=== PATIENT | male | born 1940 | race Caucasian/White ===

== ENCOUNTER → 2023-08-15 08:56 | Outpatient (REF) | payer MEDICARE, SELFPAY ==
[2023-08-15 11:15] LABS: C-Reactive Protein < 5.00 mg/L (0.0-10.00)
[2023-08-15 11:26] LABS: ALT (SGPT) 13 U/L (0-50); AST (SGOT) 21 U/L (17-59); Alkaline Phosphatase 103 U/L (38-126); Blood Urea Nitrogen 11 mg/dl (9-20); Calcium 9.4 mg/dl (8.4-10.2); Carbon Dioxide 25 mmol/L (22-30); Chloride 109 mmol/L (98-107); Glucose 85 mg/dl (70-99); Iron 118 ug/dl (49-181); Potassium 4.5 mmol/L (3.5-5.1); Sodium 138 mmol/L (135-145); Total Bilirubin 0.6 mg/dl (0.2-1.3); Total Protein 6.5 g/dl (6.3-8.2); eGFR > 60.00
[2023-08-15 11:32] LABS: % Basophils 0.5 % (0-2); % Eosinophils 1.6 % (0-6); % Immature Granulocytes 0.9 % (0-0.5); % Lymphocytes 30.8 % (20.5-51.1); % Monocytes 12.3 % (1.7-9.3); % Neutrophils 53.9 % (42.2-75.2); Absolute Eosinophils 0.1 10^3/uL (0-0.7); Absolute Immature Granulocytes 0.1 10^3/uL (0-0.05); Absolute Monocytes 0.8 10^3/uL (0.1-0.6); Absolute Neutrophils 3.4 10^3/uL (1.4-6.5); Hematocrit 37.7 % (39.0-52.0); Mean Corp Hgb Conc. 34.5 g/dL (33.0-37.0); Mean Corpuscular Volume 92.9 fL (80.0-94.0); Mean Platelet Volume 10.6 fL (7.4-10.4); Nucleated Red Blood Cells % 0 % (-); Platelet Count 336 10^3/uL (130-400); Red Blood Cell Count 4.06 10^6/uL (4.70-6.10); Red Cell Dist. Width 13.8 % (11.5-14.5); White Blood Cell Count 6.3 10^3/uL (4.8-10.8)
[2023-08-15 11:36] LABS: Percent Saturation 27 % (20-50); Total Iron Binding Capacity 422 ug/dl (261-462)
[2023-08-15 11:50] LABS: Ferritin 48.1 ng/ml (17.9-464.0)
== END ==
LOC: RAD 08:56
PROVIDERS: ATTENDING PHYSICIAN Internal Medicine Rheumatology; FAMILY PHYSICIAN Internal Medicine; REFERRING PHYSICIAN Nurse Practitioner
DX: U07.1 COVID-19 (principal); M17.11 Unilateral primary osteoarthritis, right knee; M81.0 Age-related osteoporosis without current pathological fracture; Z51.81 Encounter for therapeutic drug level monitoring; E87.1 Hypo-osmolality and hyponatremia; D64.9 Anemia, unspecified
CPT/HCPCS: 36415; 71046; 80053; 82728; 83540; 83550; 85025; 86140

== ENCOUNTER → 2023-10-15 12:50 | Outpatient (REF) | payer MEDICARE, SELFPAY | LOC: RAD 12:50 | PROVIDERS: ATTENDING PHYSICIAN Internal Medicine Critical Care Medicine; FAMILY PHYSICIAN Internal Medicine | DX: R91.1 Solitary pulmonary nodule (principal); R91.8 Other nonspecific abnormal finding of lung field | CPT/HCPCS: 71250 ==

== ENCOUNTER 2023-11-13 14:45 | Inpatient (IN) | payer MEDICARE, SELFPAY ==
[2023-11-13] VITALS (10 sets, daily range): BP systolic 91–147; BP diastolic 63–93; BMI 21.8
--- NOTE | 2023-11-13 12:01 | ED.GENMED ---
History of Present Illness
General
Chief Complaint: Chest Pain
Source: patient
Time Seen by Provider: 11/13/23 11:57
Travel History
Have you had any contact with someone who has COVID-19?: No
Do you have any symptoms of coronavirus? Fever > 100 degrees, chills, cough, shortness of breath, sore throat, loss of taste or smell, muscle aches, or headache?: No
History of Present Illness
History of Present Illness:
83-year-old male presents the emergency room via ambulance as a STEMI alert. Patient began having chest pain earlier this morning shortly before calling 911. He describes the pain as a severe sharp discomfort that he rates a 10 out of 10. It
radiates to both arms. Pain is associate with shortness of breath. Patient denies having any similar pain in the past. Paramedics gave patient 4 baby aspirin. Patient has a distant smoking history over 20 years ago.
Past History
Past History
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
dysphagia/Schatzki's ring) and Other (Diverticulitis, )
ED Past Surgical History: Appendectomy, Bowel resection ( Colon resection for diverticulitis with colostomy and then reversal), Orthopedic (Back surgery for spinal stenosis, Knee surgery right, Left hip pin and screws) and Tonsilectomy
Social History
Tobacco: Former smoker
Alcohol: Occasional
Drug: None
Personal:
Living: with family
Employment: Employed
Family History
Family History: Negative Early CAD
Phy Exam
Physical Exam
Physical Exam:
General: Awake, Alert, Oriented X3. Appears uncomfortable from chest pain
Vitals: unremarkable
Head: Atraumatic
Eyes: Pupils equal, EOMI
Throat: Airway intact, no exudates
Neck: Trachea midline
Lungs: Clear and equal b/l
Heart: Regular rate, no murmurs
Abd: Soft, Nontender, No pulsatile mass
Neuro: Nonfocal
Skin: Warm, dry, no rash
Extremities: pulses equal b/l, no edema
Scores
Heart Score for Chest Pain Patients
STEMI patient?: Yes
Course
Orders/Labs/Results
Orders:
Orders
11/13/23 11:47
Electrocardiogram (*1) Urgent
Reason for Study: Chest Pain
EKG- Treatment ONCE
11/13/23 11:49
Type+Screen Urgent
Complete Blood Count/With Diff Urgent
Comprehensive Metabolic Panel Urgent
PTT Urgent
Troponin I Urgent
11/13/23 11:58
Ticagrelor [Brilinta] 180 mg .ROUTE .STK-MED ONE
11/13/23 11:59
Heparin 5,000 units .ROUTE .STK-MED ONE
11/13/23 12:03
Heparin 1000 Units/500 ml [Heparin] 1,000 units in 500 ml .ROUTE .STK-MED
Heparin Sodium,Porcine/Ns/Pf [Heparin 2000 Units/1000 ml] 2,000 unit in 1,000 ml .ROUTE .STK-MED
Lidocaine HCl/Pf [Xylocaine-Mpf 1% Vial] 50 mg .ROUTE .STK-MED ONE
Verapamil Injectable [Isoptin/Verapamil Injection] 5 mg .ROUTE .STK-MED ONE
11/13/23 12:04
Nitroglycerin [Tridil] 1,500 mcg .ROUTE .STK-MED ONE
11/13/23 12:11
Fentanyl Citrate/Pf [Sublimaze] 100 mcg .ROUTE .STK-MED ONE
Heparin 10,000 units .ROUTE .STK-MED ONE
Midazolam HCl [Versed] 2 mg .ROUTE .STK-MED ONE
11/13/23 12:28
Lidocaine HCl/Pf [Xylocaine-Mpf 1% Vial] 100 mg .ROUTE .STK-MED ONE
11/13/23 12:51
Heparin 1000 Units/500 ml [Heparin] 1,000 units in 500 ml .ROUTE .STK-MED
11/13/23 13:42
Heparin 10,000 units .ROUTE .STK-MED ONE
Abnormal Lab Results
11/13/23 11/13/23 11/13/23
11:49 12:14 12:23
WBC 15.5 H 10^3/uL
(4.8-10.8)
RBC 4.17 L 10^6/uL
(4.70-6.10)
Hct 37.5 L %
(39.0-52.0)
MCH 31.4 H pg
(27.0-31.0)
Abs Immat Gran (auto) 0.1 H 10^3/uL
(0-0.05)
Absolute Neuts (auto) 10.6 H 10^3/uL
(1.4-6.5)
Absolute Monos (auto) 1.5 H 10^3/uL
(0.1-0.6)
Immature Gran % 0.6 H %
(0-0.5)
Monocytes % 9.6 H %
(1.7-9.3)
Carbon Dioxide 19 L mmol/L
(22-30)
Glucose 110 H mg/dl
(70-99)
Alkaline Phosphatase 129 H U/L
(38-126)
Troponin I 0.054 H* ng/ml
POC ACT Low Range 179 H Seconds 232 H Seconds
(116-155) (116-155)
11/13/23 11/13/23 11/13/23
12:48 13:08 13:33
WBC
RBC
Hct
MCH
Abs Immat Gran (auto)
Absolute Neuts (auto)
Absolute Monos (auto)
Immature Gran %
Monocytes %
Carbon Dioxide
Glucose
Alkaline Phosphatase
Troponin I
POC ACT Low Range 239 H Seconds 285 H Seconds 260 H Seconds
(116-155) (116-155) (116-155)
11/13/23 11:49
11/13/23 11:49
Vital Signs
Initial and Last Documented VS:
Initial Vital Signs
Pulse Resp BP Pulse Ox
77 26 147/93 99
11/13/23 12:00 11/13/23 12:00 11/13/23 12:00 11/13/23 12:00
Last Documented Vital Signs
Pulse Resp BP Pulse Ox
77 26 147/93 99
11/13/23 12:00 11/13/23 12:00 11/13/23 12:00 11/13/23 12:00
MDM/Problems Addressed
Differential Diagnosis Includes:
STEMI, NSTEMI, acute coronary syndrome, dissection
MDM/Problems Addressed:
Patient presents with acute chest pain. Prehospital EKG was reportedly suspicious for an inferior wall CO. Unfortunately the EKG cannot be transmitted. The alert was called before the patient arrived. EKG here does confirm the presence of an
inferior wall CO. Patient evaluated by Dr. Ayala prior to being rapidly taken to the Dairy Technologist. Patient received 5000 units of heparin and 180 of Brilinta as well.
*Pulse Oximetry
Patient hypoxic: no
*EKG
Interpreted by ED Provider?: Yes
Interpretation: abnormal
Heart Rate: 73
Rate: normal
Rhythm: sinus
Interval: first degree heart block
QRS Pattern: normal QRS
Ischemia: ST elevation (II, III, AvF with t wave inversion avl)
*Zipper Repairer Interpretation
Rate: normal
Interpretation: abnormal
Heart Rate: 73
Rhythm: sinus
*Critical Care Note
Total Time (30-74mins, 75-104mins- exclusive of procedures): 20 min
comment:
Critical care statement: A total of 20 minutes of critical care time was provided for this patient. This includes management of unstable vital signs, evaluation of the patient at bedside, reviewing the patient's pertinent medical records, discussion
with consultants, review of old EKGs and review of pertinent medical records. This time with separate from time utilized to perform the aforementioned documented procedures
ED Attending Note
-
Portions of this chart may have been created with voice recognition software.� Occasional wrong word or��sound alike� substitutions may have occurred due to the inherent limitations of voice recognition software.
Discharge Plan
Departure
Patient Disposition: Admit
Date of Disposition: 11/13/23
Time of Disposition: 12:05
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
Presentation/result/management discussed w/ accepting MD/DO: Dr. Ayala
Condition: Serious
Discharge Problem:
Acute CO, inferior wall
Prescriptions:
No Action
donepezil 10 MG tablet
10 mg PO HS
prednisone 1 MG tablet
3 mg PO DAILY
Patient Comments:
06/20/2023: On hold while pt is on taper dosing
gemfibrozil 600 MG tablet
600 mg PO DAILY
omeprazole 40 mg capsule,delayed release(/EC)
40 mg PO DAILY
ibuprofen 600 mg tablet
600 mg PO TID PRN (Reason: mild pain/fever)
escitalopram oxalate 20 mg tablet
20 mg PO DAILY
Afrin (oxymetazoline) 0.05 % Mist
1 spray INTRANASAL Q12H PRN (Reason: nasal congestion)
albuterol sulfate 90 mcg/actuation Hfa Aerosol Inhaler
2 puff INHALATION R Q4 PRN (Reason: sob/wheezing)
Referrals:
UNKNOWN,NO INTERVIEW [Family Provider] -
Interventions
Interventions:
ED- Cardiac Assessment Last Done: 11/13/23 12:09
Discharge Date and Time
Print Language: NEPALI
[2023-11-13 12:02] LABS: % Basophils 0.2 % (0-2); % Eosinophils 0.3 % (0-6); % Immature Granulocytes 0.6 % (0-0.5); % Monocytes 9.6 % (1.7-9.3); % Neutrophils 68.3 % (42.2-75.2); Absolute Eosinophils 0.1 10^3/uL (0-0.7); Absolute Immature Granulocytes 0.1 10^3/uL (0-0.05); Absolute Lymphocytes 3.3 10^3/uL (1.2-3.4); Absolute Monocytes 1.5 10^3/uL (0.1-0.6); Absolute Neutrophils 10.6 10^3/uL (1.4-6.5); Hematocrit 37.5 % (39.0-52.0); Hemoglobin 13.1 g/dL (13.0-18.0); Mean Corp Hgb Conc. 34.9 g/dL (33.0-37.0); Mean Corpuscular Hgb 31.4 pg (27.0-31.0); Mean Corpuscular Volume 89.9 fL (80.0-94.0); Mean Platelet Volume 10.2 fL (7.4-10.4); Nucleated Red Blood Cells % 0 % (-); Platelet Count 369 10^3/uL (130-400); Red Blood Cell Count 4.17 10^6/uL (4.70-6.10); Red Cell Dist. Width 12.5 % (11.5-14.5); White Blood Cell Count 15.5 10^3/uL (4.8-10.8)
[2023-11-13 12:16] LABS: APTT 30.4 Sec (23.4-35.0)
[2023-11-13 12:20] LABS: ACT-LR - POC 179 Seconds (116-155)
[2023-11-13 12:26] LABS: ALT (SGPT) 13 U/L (0-50); AST (SGOT) 22 U/L (17-59); Albumin 4.2 g/dl (3.5-5.0); Alkaline Phosphatase 129 U/L (38-126); Blood Urea Nitrogen 17 mg/dl (9-20); Calcium 9.7 mg/dl (8.4-10.2); Carbon Dioxide 19 mmol/L (22-30); Chloride 106 mmol/L (98-107); Estimated Creatinine Clearance 74 ml/min; Glucose 110 mg/dl (70-99); Potassium 4.1 mmol/L (3.5-5.1); Sodium 138 mmol/L (135-145); Total Bilirubin 0.6 mg/dl (0.2-1.3); Total Protein 6.8 g/dl (6.3-8.2); eGFR > 60.00
[2023-11-13 12:33] LABS: ACT-LR - POC 232 Seconds (116-155)
[2023-11-13 12:47] LABS: Troponin I 0.054 ng/ml
[2023-11-13 12:57] LABS: ACT-LR - POC 239 Seconds (116-155)
[2023-11-13 13:13] LABS: ACT-LR - POC 285 Seconds (116-155)
[2023-11-13 13:40] LABS: ACT-LR - POC 260 Seconds (116-155)
[2023-11-13 14:07] LABS: ACT-LR - POC 274 Seconds (116-155)
--- NOTE | 2023-11-13 14:20 | CON.CAR ---
Consultation
Consultation Request
Date/Time Consultation Requested: 11/13/23
Reason for Consultation: Inferior STEMI
Medical History
-
Chief Complaint: Chest pain
History of Present Illness:
83-year-old male h/o HLD, COVID PNA 06/2023, PMR, COPD, dementia, BPH, GERD with Schatzki ring and associated dysphasia, former smoker who developed 10/10 chest pain rad b/l arms with SOB and called 911. On arrival to ER EKG with inferior ST
elevations and a STEMI alert called. ASA, Heparin, Brilinta were given in ER and he was brought urgently to rn labor delivery.
Past Medical History
Past Medical History: Cancer (basal cell, squamous cell skin), COPD (COVID Pneumonia 06/2023), GERD (schatzki ring), Hypercholesterolemia, Psychiatric (Anxiety, depression, mild dementia) and Other (spinal stenosis, PMR, diverticulitis with
perforation, BPH, aspiration pneumonia 2018 requiring intubation, osteoporosis)
Past Surgical History: Appendectomy, Bowel Resection, Orthopedic (EMILIA 2021, lumbar decompression sx), Tonsilectomy and Other (MOHS)
Social History
Tobacco: Former Smoker (quit in 2003, 35 pyhx)
Alcohol: Occasional
Living: With Family
Family History
Family History: Cancer (mother CLL )
Allergies / Home Medications
Allergy/AdvReac Type Severity Reaction Status Date / Time
morphine Allergy Hives Verified 06/12/23 09:55
penicillin V [Penicillin V] Allergy Rash Verified 06/12/23 09:55
�Medication �Instructions �Recorded �Confirmed �Type
donepezil 10 mg tablet 10 mg PO HS Mental Health/Anxiety 06/15/19 06/20/23 History
gemfibrozil 600 mg tablet 600 mg PO DAILY High cholesterol 06/15/19 06/20/23 History
prednisone 1 mg tablet 3 mg PO DAILY Infection 06/15/19 06/20/23 History
albuterol sulfate 90 mcg/actuation 2 puff inhalation R Q4 PRN 06/20/23 06/20/23 History
aerosol inhaler sob/wheezing
escitalopram oxalate 20 mg tablet 20 mg PO DAILY 06/20/23 06/20/23 History
ibuprofen 600 mg tablet 600 mg PO TID PRN mild pain/fever 06/20/23 06/20/23 History
omeprazole 40 mg capsule,delayed 40 mg PO DAILY 06/20/23 06/20/23 History
release
oxymetazoline 0.05 % nasal mist 1 spray intranasal Q12H PRN nasal 06/20/23 06/20/23 History
(Afrin (oxymetazoline)) congestion
Review of Systems
-
Unable to obtain full review of systems at this time due to: Dementia
Cardiac: Chest Pain (02/18 on arrival to rn labor delivery)
Physical Exam
Vital Signs
Pulse Resp BP Pulse Ox
77 26 147/93 99
11/13/23 12:00 11/13/23 12:00 11/13/23 12:00 11/13/23 12:00
Lab Results
11/13/23 11:49
11/13/23 11:49
Troponin I 0.054 ng/ml H* 11/13/23 11:49
Physical Exam
General: Pain (deferred d/t being prepped and drapped on rn labor delivery table)
Impression / Plan
-
PCP: Nerissa Tse
CDY: None, new to Dr. Ayala
83-year-old male h/o HLD, COVID PNA 06/2023, PMR, COPD, dementia, BPH, GERD with Schatzki ring and associated dysphasia, former smoker who developed 10/10 chest pain rad b/l arms with SOB and called 911. On arrival to ER EKG with inferior ST
elevations and a STEMI alert called. ASA, Heparin, Brilinta were given in ER and he was brought urgently to rn labor delivery.
Impression:
Inferior STEMI
post PCI RCA x 2 HARLEY
Hyperlipidemia
PMR
COPD
COVID Pneumonia 06/2023
BPH
mild Dementia
spinal stenosis
Anxiety/Depression
GERD
Schatzki's ring h/o aspiration requiring intubation 2018
former smoker
Osteoporosis
Plan:
Admit IVU on hospitalist service, continue post MA care
Rad/Fem sites per protocol
serial troponin to peak
Check Echo in am
DAPT ASA/Brilinta (CM to eval cost)
Check lipid profile, stop gemfibrozil new start to atorvastatin 40mg
Will add low dose BB monitor for any side effects with COPD
continue prednisone for PMR
dementia continue donepezil and escitalopram
PPI for GERD
cardiac rehab c/s
f/u DCA 2-4 weeks at d/c
monitor on tele 48 hours
Data Reviewed
-
Medical Tests (Nuc Med, Echo etc): Report Reviewed by me
[2023-11-13] MEDS: NSS 1000 IV (15:28)
--- NOTE | 2023-11-13 16:00 | PTCARENOTE ---
Received pt post cath. VSS. Pt denies any chest pain. Right groin site clean dressing intact. Right radial site w/ R band intact. Pt impulsive and not following commands. Pt's at bedside.
--- NOTE | 2023-11-13 17:29 | HPS.HSE ---
Family Physician
-
Family Physician: NO INTERVIEW UNKNOWN
Chief Complaint
-
Chest Pain
History of Present Illness
83-year-old male with past medical history of HLD, COVID PNA 06/2023, PMR, COPD, dementia, BPH, GERD with Schatzki ring and associated dysphagia, spinal stenosis, history of skin cancer, anxiety, depression, diverticulitis with perforation,
aspiration pneumonia 2018 requiring intubation, osteoporosis and former smoker who presented after developing 03/20 chest pain radiating to bilateral arms with shortness of breath, and called 911. On arrival to the ER EKG showed inferior ST
elevations and a STEMI alert called. ASA, Heparin, Brilinta were given in ER and he was taken urgently to cardiac cathode ray tube salvage processor where PCI was performed.
When patient was seen after his cardiac cath procedure he reported that his symptoms resolved, no chest pain and no shortness of breath.
Medical History
Past Medical History
Past Medical History: Reports Other (As per HPI above)
Past Surgical History: Reports Appendectomy, Bowel Resection, Orthopedic (EMILIA 2021, lumbar decompression sx), Tonsilectomy and Other (MOHS)
Social History
Tobacco: Former Smoker
Alcohol: Occasional
Family History
Family History: Not pertinent
Allergies / Home Medications
Allergies reflects when Allergies were last updated in [employer].
Home Medications with original date entered in [employer]
Allergy/Medication List:
Allergies
Allergy/AdvReac Type Severity Reaction Status Date / Time
morphine Allergy Hives Verified 06/12/23 09:55
penicillin V [Penicillin V] Allergy Rash Verified 06/12/23 09:55
Home Medications
donepezil 10 mg tablet 10 mg PO DAILY Mental Health/Anxiety 06/15/19
gemfibrozil 600 mg tablet 600 mg PO DAILY High cholesterol 06/15/19
prednisone 1 mg tablet 3 mg PO DAILY Infection 06/15/19
albuterol sulfate 90 mcg/actuation aerosol inhaler 2 puff inhalation R Q4 PRN sob/wheezing 06/20/23
escitalopram oxalate 20 mg tablet 20 mg PO DAILY 06/20/23
ibuprofen 600 mg tablet 600 mg PO TID PRN mild pain/fever 06/20/23
omeprazole 40 mg capsule,delayed release 40 mg PO DAILY 06/20/23
Review of Systems
-
Unable to obtain full review of systems at this time due to: Dementia
Physical Exam
Vital Signs
Vital Signs
Temp Pulse Resp BP Pulse Ox
97.4 F 58 16 107/66 97
11/13/23 15:33 11/13/23 15:00 11/13/23 14:49 11/13/23 15:00 11/13/23 15:00
Physical Exam
General: No Apparent Distress and Comfortable
HEENT: NormoCephalic and Moist mucous membranes
Respiratory: Clear
Cardiac: S1/S2 and Regular Rhythm
GI: Soft, Non Tender and Normal Bowel Sounds
Musculoskeletal: No Cyanosis and No Edema
Skin: Warm and Dry
Neuro: Awake and Alert
Psych: Calm
Laboratory Results
-
11/13/23 11:49
11/13/23 11:49
Laboratory Results
APTT 30.4 Sec (23.4-35.0) 11/13/23 11:49
Total Bilirubin 0.6 mg/dl (0.2-1.3) 11/13/23 11:49
AST 22 U/L (17-59) 11/13/23 11:49
ALT 13 U/L (0-50) 11/13/23 11:49
Alkaline Phosphatase 129 U/L (38-126) H 11/13/23 11:49
Troponin I 0.054 ng/ml H* 11/13/23 11:49
Impression/Plan
-
Assessment/Plan
Presentation with Chest Pain and Shortness of Breath Secondary to STEMI
Inferior STEMI
-Status post PCI RCA x 2 HARLEY on 11/13/23
-DAPT ASA/Brilinta (CM to eval cost)
-Beta Raven with Lopressor 12.5 mg PO BID
-Check lipid profile
-Stop gemfibrozil new start to atorvastatin 40mg
HLD
-Continue newly started statin
-Stop Gemofibrozil as per cardiology
COVID PNA 06/2023
PMR
-Continue home steroids
COPD
-Stable
-Continue to monitor
Dementia
-Continue home Donepezil
BPH
GERD with Schatzki ring and associated dysphagia -- continue home PPI or equivalent
Spinal stenosis
History of skin cancer and Mohs surgery
Anxiety
Depression
Diverticulitis with perforation
Aspiration pneumonia 2019 requiring intubation
Osteoporosis
Former smoker
DVT Prophylaxis: Lovenox
Code Status: Full Code
--- NOTE | 2023-11-13 17:58 | ITS.CL.CATH ---
Culinary Assistant - Catheterization
Cardiac Catheterization
Procedure Report:
LEFT HEART CATHETERIZATION AND CORONARY INTERVENTION
Date of Procedure: November 13, 2023
Referring: Leana Ayala MD, [facility], [facility]
PROCEDURES:
1. Left heart catheterization, coronary angiogram.
2. Ultrasound-guided access.
3. Successful percutaneous coronary intervention of 90% acute hazy heavily calcified stenosis of mid RCA with two overlapping 4.0x18mm and 4.0x12mm Medtronic [place] drug eluting stents with excellent angiographic result.
INDICATION: Inferior STEMI.
ACCESS:
1. Right radial artery, 6 [place] sheath, under ultrasound guidance. Given significant subclavian artery tortuosity and difficulty torquing the right coronary catheter, we had to abort radial approach.
2. Right common femoral artery, 6 [place] sheath, under ultrasound guidance using a micropuncture kit.
HEMODYNAMICS : (mmHg)
AO (s/d) : 139/67
CORONARY FINDINGS: LM calcified coronary arteries
DOMINANCE: Right
LEFT MAIN: Left main artery is a large-caliber vessel which gives rise to the left anterior descending artery and the left circumflex artery. Distal left main has a 60% stenosis.
LEFT ANTERIOR DESCENDING: The left anterior descending artery is a medium caliber vessel which gives rise to 3 major diagonal branches as it courses through the anterior interventricular groove and wraps around the apex. Mid LAD has 50 to 60%
stenosis just distal to the second diagonal branch. There are faint left to left collaterals noted.
CIRCUMFLEX: The left circumflex artery is a small to medium caliber vessel which gives rise to 1 major branching obtuse marginal branch. There is mild diffuse atherosclerotic plaque.
RIGHT CORONARY ARTERY: The right coronary artery is a medium to large caliber, dominant vessel which gives rise to the right posterior descending artery and the right posterolateral branch. Mid RCA has a heavily calcified hazy 90% stenosis which is
likely culprit of presenting ST elevation MD.
CORONARY INTERVENTION: We tried multiple times to engage the right coronary artery using a 6 [place] JR4 guide via right radial approach however given significant right subclavian artery tortuosity, we had a kink in the guide and had to abort this
approach. We then obtained access into right common femoral artery using a micropuncture kit and placed a 6 [place] sheath there. Given the kink in the prior guide appears to have resolved with no difficulty flushing the catheter we decided to use
the same guide that was on the table we have the right common femoral artery approach and selectively engaged the RCA. Through this, we initially tried to advance a 190 cm 0.014' BMW coronary wire however initially we got stuck at the site of the
prior kink however with some manipulation we were able to successfully advance a coronary wire into the proximal RCA. Given significant calcium in the mid RCA with high-grade stenosis, we had some difficulty passing the wire into the distal vessel
but eventually succeeded. We tried to deliver a 3.0 x 15 mm trek semi-compliant balloon however given poor guide support due to angulation of the takeoff of the RCA, we could not succeed delivering the balloon at the side of the obstructive
stenosis. We tried to bring in a 6 [place] guide liner to help provide support however we could not get the guide liner past prior site of the kink. At this point we decided to bring everything out and brought in a fresh 6 [place] JR4 guide and
selectively engaged the RCA and rewired the lesion with a new 190 cm 0.014' BMW coronary wire into the distal RCA with some difficulty. We were now able to successfully pass the guide liner and through guide liner support we were able to deliver a
2.0 x 15 mm trek semi-compliant balloon with full expansion. Throughout the case patient constantly Moving and despite redirection and IV sedation had some difficulty staying still. We tried to deliver a 4.0 x 23 mm Xience yamilet point drug-eluting
stent however the stent could not be delivered despite deep guide liner support. At this point we decided to try a 4.0 x 18 mm Medtronic [place] drug-eluting stent given it would be slightly lower profile however we failed to deliver the
stent again. We decided to further pre-dilate the lesion given significant calcium there. With deep GuideLiner support we were able to deliver a 3.5 x 15 mm trek semi-compliant balloon which was inflated at 12 tami for 28 seconds with good
expansion. We tried again delivering the stent however could not deliver this to the mid vessel. At this point we tried bringing in a 3.5 x 15 mm NC trek balloon to further pre-dilate the lesion but were unable to advance this to the mid RCA
lesion. We then tried a 3.5 x 12 mm NC Euphora balloon which we successfully delivered and inflated at 20 tami for 35 seconds. We brought in the guide liner over this balloon into the mid to distal vessel in the hopes of being able to deliver the
stent through the guide liner and an sheath staying at the site of the lesion. We placed a 4.0 x 18 mm Medtronic [place] frontier drug-eluting stent and overlapped with a second 4.0 x 12 mm Medtronic [place] frontier drug-eluting stent in the mid RCA and
deployed both at 14 tami with good expansion. We attempted to postdilated the stents using a 4.0 x 20 mm NC trek balloon initially however we could not advance to the side of the stents. We then tried a 4.0 x 12 mm NC Euphora balloon and still
could not deliver the balloon despite GuideLiner support into the stents and decided to stop at this point. The stents look well-expanded and well opposed with RENUKA-3 flow into the distal vessels. Patient had been loaded with 180 mg of Brilinta in
the emergency department on presentation. No acute complications.
SEDATION: 71 minutes of procedural sedation was utilized. An independent medical insurance claims specialist was present to assist with and help manage the patient's level of consciousness and physiologic status.
RADIATION SUMMARY: Fluoro Time (min): 38.2, Dose (mGy): 1845.9, DAP (Gy.cm2) : 160.5
Closure Device:
1. Vascular band over right radial artery, 10 cc of air.
2. 6 [place] Angio-Seal over the right common femoral arterial stick with successful hemostasis.
CONCLUSIONS
1. An extremely challenging but successful percutaneous coronary intervention of 90% acute hazy heavily calcified stenosis of mid RCA with two overlapping 4.0x18mm and 4.0x12mm Medtronic [place] drug eluting stents with excellent angiographic
result.
2. 60% distal left main stenosis and moderate disease in the mid LAD.
RECOMMENDATIONS
1. Uninterrupted dual antiplatelet therapy with daily baby aspirin and Brilinta along with high intensity statin and beta-sunday.
2. Goal-directed medical therapy for coronary artery disease.
3. Aggressive management of cardiovascular risk factors.
4. Referral for outpatient cardiac rehab
Leana Ayala MD, FACC, [facility]
[2023-11-13] MEDS: LIPITOR 80 MG PO (18:30)
--- NOTE | 2023-11-13 19:15 | PTCARENOTE ---
Pt continued to put pressure on his right wrist. R band removed as there was no evidence of bleeding. Immediate hematoma of right radial atery w/ removal of band. Manual pressure for 10 minutes. Hemostasis at 1810. Will monitor.
[2023-11-13] MEDS: LOPRESSOR 12.5 MG PO (20:01)
[2023-11-13] MEDS: BRILINTA 90 MG PO (20:02)
--- NOTE | 2023-11-13 23:07 | PTCARENOTE ---
Pt rec'd from evening nurse awake,alert forgetful ambulating around room. Pt reoriented to surroundings. bed alarm placed after pt taken to bathroom to void.
Sinus on telemetry. Pt states he has to take sleep trisha to get to sleep. House MARKET RISK SPECIALIST notified melatonin ordered. Awaiting pharmacy to clear.
[2023-11-13] MEDS: MELATONIN 3 MG PO (23:18)
[2023-11-14] VITALS (11 sets, daily range): BP systolic 92–109; BP diastolic 51–66; PULSE 57; O2SAT 99
[2023-11-14 04:41] LABS: Hemoglobin 11.4 g/dL (13.0-18.0); Mean Corp Hgb Conc. 33.5 g/dL (33.0-37.0); Mean Corpuscular Hgb 30.9 pg (27.0-31.0); Mean Corpuscular Volume 92.1 fL (80.0-94.0); Mean Platelet Volume 10.1 fL (7.4-10.4); Platelet Count 277 10^3/uL (130-400); Red Blood Cell Count 3.69 10^6/uL (4.70-6.10); Red Cell Dist. Width 12.5 % (11.5-14.5); White Blood Cell Count 13.5 10^3/uL (4.8-10.8)
[2023-11-14 05:04] LABS: Blood Urea Nitrogen 14 mg/dl (9-20); Calcium 9.1 mg/dl (8.4-10.2); Carbon Dioxide 20 mmol/L (22-30); Chloride 110 mmol/L (98-107); Estimated Creatinine Clearance 87 ml/min; Glucose 102 mg/dl (70-99); HDL Cholesterol 36 mg/dl; LDL Cholesterol, Calculated 116 mg/dl; Potassium 3.9 mmol/L (3.5-5.1); Sodium 136 mmol/L (135-145); Total Cholesterol 166 mg/dl (50-199); Triglyceride 71 mg/dl (10-149); Very Low Density Lipoprotein 14 mg/dl (0-30); eGFR > 60.00
[2023-11-14] MEDS: DELTASONE 3 MG PO (07:20)
[2023-11-14] MEDS: TYLENOL 650 MG PO ×3 (07:20→22:46)
[2023-11-14] MEDS: LOW STRENGTH ASPIRIN 81 MG PO (07:23)
[2023-11-14] MEDS: BRILINTA 90 MG PO (07:24)
[2023-11-14] MEDS: PROTONIX 40 MG PO (09:16)
[2023-11-14] MEDS: LOPRESSOR 12.5 MG PO ×2 (09:16→19:49)
[2023-11-14] MEDS: ARICEPT 10 MG PO (09:16)
[2023-11-14] MEDS: LEXAPRO 20 MG PO (09:16)
--- NOTE | 2023-11-14 09:39 | CM ---
Addendum entered by Danuta Sahni 11/14/23 12:20:
Reviewed chart. Met with Mr. and Mrs. Murillo to review co-pays. He feels the co-pays are to high for Brilinta.
Original Note:
Reviewed chart. met with Mr. Murillo to review discharge plans. He states prior to admission he resides with his spouse in a two story home with four steps to enter. He states he has a full flight of steps to get to bedroom/full bathroom. He states
he has a powder room on the first floor. He states prior to admission he was independent with ambulation and adls. He states he does use a single point cane at home to use if he is going a long distances. He states he has a single point cane at
home. He states he has a prescription plan with [facility] and uses [facility]. Telephone call to [facility] to check his co-pay for Brilinta 90 mg po bid. He has a deductible of $545.00 that has to be met. So his first script would be $384.12 for
30 day supply or $677.17 for a 90 day supply. After he mets his deductible his co-pay for 30 days would be $288.15 a month or for 90 day would be $407.81 for a 90 day supply. He can use the one month free coupon if he is agreeable to the co-pay.
Medical work-up in progress. The discharge plan is to return home with his spouse when medically stable.
[2023-11-14 11:52] LABS: Glycohemoglobin (HgbA1c) 5.8 % (4.0-5.6)
--- NOTE | 2023-11-14 15:19 | W.PN.CARDCBS ---
Addendum entered and electronically signed by Leana Ayala MD 11/14/23 18:16:
I saw and examined the patient.
The Desulphuring Operator's note was reviewed and I agree with the note.
Comment: Overall patient is doing well and does not offer any complaints today. No recurrent chest discomfort or shortness of breath. is at bedside.
Vital signs reviewed along with lab work. Troponin peaked at 38.9. On exam patient is a well-appearing gentleman in no acute distress, normal S1 and S2, intermittent confusion is noted, regular rhythm, no murmurs, rubs or gallops, right radial
heart catheterization site with dressing in place which is clean, dry and intact without evidence of hematoma or bruit, abdomen is soft, nontender, nondistended with active bowel sounds, warm extremities
EKG showing changes of an evolving recent inferior ST elevation ME with T wave inversions noted in the inferior leads
Recommendations:
1. Uninterrupted dual antiplatelet therapy. Given prohibitive cost of Brilinta he was transition to Plavix this morning. Continue daily baby aspirin.
2. Continue high intensity statin and low-dose beta-sunday as tolerated.
3. Echocardiogram reviewed with low normal left ventricular systolic function with hypokinesis noted in the basal inferior wall.
4. Plan to medically manage left coronary artery disease as discussed with patient and family.
5. Continue to monitor for at least another 24 hours in the setting of presenting inferior ST elevation ME.
6. Outpatient referral for cardiac rehab.
Leana Ayala MD, [facility], [facility]
Original Note:
Today's Communication / Plan
-
Status post RCA PCI. Residual left main disease, managed medically
Transition to Plavix in AM. Continue aspirin
Continue low-dose Lopressor, Lipitor
Awaiting echo results
Cardiac rehab
Outpatient cardiac follow-up arranged
For possible discharge in a.m.
Impression / Plan
-
PCP: Nerissa Tse
CDY: None, new to Dr. Ayala
83-year-old male h/o HLD, COVID PNA 06/2023, PMR, COPD, dementia, BPH, GERD with Schatzki ring and associated dysphasia, former smoker who developed 10/10 chest pain rad b/l arms with SOB and called 911. On arrival to ER EKG with inferior ST
elevations and a STEMI alert called. ASA, Heparin, Brilinta were given in ER and he was brought urgently to wheelabrator operator.
Impression:
Inferior STEMI
post PCI RCA x 2 HARLEY 11/14/23
Residual 60% L main stenosis, medically managed
Hyperlipidemia
PMR
COPD
COVID Pneumonia 06/2023
BPH
mild Dementia
spinal stenosis
Anxiety/Depression
GERD
Schatzki's ring h/o aspiration requiring intubation 2018
former smoker
Osteoporosis
Plan:
-Patient presented as inferior STEMI. trop peaked at 38.9. Underwent RCA PCIx2 on 11/13/23
-Noted to have residual 60% left main stenosis, plan for medical management at this time
-Feeling well this morning. No chest discomfort
-right radial site soft, nontender to palpation with mild ecchymoses
-echo pending
-brilinta cost prohibitive. plan to transition to plavix in AM. continue asa
-New start Lipitor 80 mg
-Continue low-dose beta-sunday. Patient with occasional PVCs, couplet, triplet overnight on telemetry. Potassium stable
-continue prednisone for PMR
-cardiac rehab c/s
-Op cardiac follow up arranged
-likely for DC 11/14
-d/w patient and at bedside
Progress Note - [employer] Machine Operator
Subjective
Date of Service: November 14, 2023
Denies chest pain, shortness of breath, palpitations. Patient reports feeling much better today
Objective
Labs:
11/14/23 04:29
11/14/23 04:29
Labs
Hgb 11.4 g/dL (13.0-18.0) L 11/14/23 04:29
Hct 34.0 % (39.0-52.0) L 11/14/23 04:29
Plt Count 277 10^3/uL (130-400) D 11/14/23 04:29
APTT 30.4 Sec (23.4-35.0) 11/13/23 11:49
Sodium 136 mmol/L (135-145) 11/14/23 04:29
Potassium 3.9 mmol/L (3.5-5.1) 11/14/23 04:29
BUN 14 mg/dl (9-20) 11/14/23 04:29
Creatinine 0.6 mg/dL (0.7-1.3) L 11/14/23 04:29
Glucose 102 mg/dl (70-99) H 11/14/23 04:29
Troponins
11/13/23 11/13/23 11/14/23
11:49 21:49 04:29
Troponin I 0.054 H* 38.900 H* 28.600 H* D
Vital Signs and I&O:
Vital Signs
Temp Pulse Resp BP Pulse Ox
98.3 F 56 20 97/61 99
11/14/23 11:42 11/14/23 11:42 11/14/23 11:42 11/14/23 09:16 11/14/23 11:42
Vital Signs
Temp Pulse Resp BP Pulse Ox
98.3 F 56 20 97/61 99
11/14/23 11:42 11/14/23 11:42 11/14/23 11:42 11/14/23 09:16 11/14/23 11:42
Intake & Output
11/12/23 11/13/23 11/14/23 11/15/23
07:59 07:59 07:59 07:59
Intake Total 540 / 540
Output Total 650 / 650
Balance -110 / -110
Physical Exam
Physical Exam
GEN: No distress, awake, alert, oriented x3. Forgetful at times
HEENT: supple, anicteric, mmm, EOMI
LUNGS: CTA bilaterally, no wheezes/rales
CV: Reg, S1/S2, no murmur
ABD: soft, BS+, NT/ND
EXT: No cyanosis, clubbing, edema
NEURO: Gross non-focal
SKIN: Warm, pink, dry. No rash. Right wrist site soft, nontender to palpation, mild ecchymoses
--- NOTE | 2023-11-14 15:54 | W.PN.HOSP.TC ---
Today's Communication/Plan
-
Doing well
Continue DAPT, high intensity statin, beta raven
Cardiology recommended monitoring for another 24 hours
Assessment / Plan
Assessment / Plan
Physical Exam
General: No Apparent Distress and Comfortable
HEENT: Normocephalic and Moist mucous membranes
Respiratory: Clear
Cardiac: S1/S2 and Regular Rhythm
GI: Soft, Non Tender and Normal Bowel Sounds
Musculoskeletal: No Cyanosis and No Edema
Skin: Warm and Dry
Neuro: Awake and Alert
Psych: Calm
Assessment/Plan
Presentation with Chest Pain and Shortness of Breath Secondary to STEMI
Inferior STEMI
-Status post PCI RCA x 2 HARLEY on 11/13/23. Noted to have residual 60% left main stenosis, plan for medical management at this time.
-DAPT ASA/Plavix (patient cannot afford Brilinta)
-Beta Raven with Lopressor 12.5 mg PO BID
-Stop gemfibrozil new start to atorvastatin 80 mg
-Monitor for 1 more day
HLD
-Continue newly started statin
-Stop Gemofibrozil as per cardiology
COVID PNA 06/2023
PMR
-Continue home steroids
COPD
-Stable
-Continue to monitor
Dementia
-Continue home Donepezil
BPH
GERD with Schatzki ring and associated dysphagia -- continue home PPI or equivalent
Spinal stenosis
History of skin cancer and Mohs surgery
Anxiety
Depression
Diverticulitis with perforation
Aspiration pneumonia 2019 requiring intubation
Osteoporosis
Former smoker
DVT Prophylaxis: Lovenox
Code Status: Full Code
Anticipated Discharge: Within 24 hours
Subjective/Interval History
-
Date of Service: November 14, 2023
Patient was seen and examined. He has been walking around the unit, and denied any chest pain or shortness of breath.
Objective Data
-
Labs:
Laboratory Results
11/14/23
04:29
WBC 13.5 H
Hgb 11.4 L
Hct 34.0 L
Plt Count 277 D
Sodium 136
Potassium 3.9
Chloride 110 H
Carbon Dioxide 20 L
BUN 14
Creatinine 0.6 L
Glucose 102 H
Calcium 9.1
Vital Signs:
Vital Signs
Temp Pulse Resp BP Pulse Ox
98.3 F 58 16 97/61 98
11/14/23 15:24 11/14/23 15:24 11/14/23 15:24 11/14/23 09:16 11/14/23 15:24
I&O
11/13/23 11/14/23 11/15/23
06:59 06:59 06:59
Intake Total 540 / 540
Output Total 650 / 650
Balance -110 / -110
--- NOTE | 2023-11-14 17:05 | W.PN.UPDATE ---
Update Note
Progress Note Update
per nursing patient with some complaints of 'lightning bolts' down his L arm. EKG appears stable to prior with inferior T wave inversions. trop trending down. also per with some worsening confusion, possibly sundowning. will continue to monitor
--- NOTE | 2023-11-14 17:16 | PTCARENOTE ---
Pt c/o intermittent BUE shooting pain, described as a 'lightning bolt'. PA aware. EKG obtained. Will monitor.
[2023-11-14] MEDS: LOVENOX 40 MG SC (18:07)
[2023-11-14] MEDS: LIPITOR 80 MG PO (18:07)
[2023-11-14] MEDS: MOTRIN 200 MG PO (19:56)
--- NOTE | 2023-11-14 21:36 | PTCARENOTE ---
Pt rec'd at change of shift confused to surroundings but easily redirected. . bed alarm activated. House FROG OR OYSTER FARMWORKER contacted after pt c/o severe joint pain. One time dose of Motrin given along with heating pad. Sinus on telemetry.
[2023-11-14] MEDS: MELATONIN 3 MG PO (22:46)
[2023-11-15 02:44] VITALS: BP 89/50
[2023-11-15 03:18] LABS: Hematocrit 31.8 % (39.0-52.0); Hemoglobin 10.9 g/dL (13.0-18.0); Mean Corp Hgb Conc. 34.3 g/dL (33.0-37.0); Mean Corpuscular Hgb 31.4 pg (27.0-31.0); Mean Corpuscular Volume 91.6 fL (80.0-94.0); Mean Platelet Volume 10.6 fL (7.4-10.4); Platelet Count 245 10^3/uL (130-400); Red Blood Cell Count 3.47 10^6/uL (4.70-6.10); Red Cell Dist. Width 12.6 % (11.5-14.5); White Blood Cell Count 12.4 10^3/uL (4.8-10.8)
[2023-11-15 03:35] LABS: Blood Urea Nitrogen 19 mg/dl (9-20); Calcium 8.8 mg/dl (8.4-10.2); Carbon Dioxide 21 mmol/L (22-30); Chloride 106 mmol/L (98-107); Estimated Creatinine Clearance 58 ml/min; Glucose 94 mg/dl (70-99); Magnesium 1.9 mg/dl (1.6-2.3); Potassium 3.8 mmol/L (3.5-5.1); Sodium 135 mmol/L (135-145); eGFR > 60.00
--- NOTE | 2023-11-15 03:44 | PTCARENOTE ---
Pt ambulated with staff down marshall with walker. gait steady no c/o cp or sob. Back to bed at present with bed alarm activated
[2023-11-15 08:19] VITALS: BP 120/67
[2023-11-15] MEDS: PROTONIX 40 MG PO (08:29)
[2023-11-15] MEDS: LOW STRENGTH ASPIRIN 81 MG PO (08:29)
[2023-11-15] MEDS: ARICEPT 10 MG PO (08:29)
[2023-11-15] MEDS: PLAVIX 600 MG PO (08:29)
[2023-11-15] MEDS: LOPRESSOR 12.5 MG PO (08:29)
[2023-11-15] MEDS: LEXAPRO 20 MG PO (08:29)
[2023-11-15] MEDS: DELTASONE 3 MG PO (08:29)
[2023-11-15 09:00] VITALS: BP 115/68
[2023-11-15 09:15] VITALS: BP 115/68; PULSE 84; O2SAT 98
[2023-11-15 11:17] VITALS: BP 103/63
--- NOTE | 2023-11-15 12:20 | PTCARENOTE ---
Pt AOx1-2, confused at baseline. Assist x1 OOB with walker. VSS, NSR on tele monitor. Bed alarm on and audible. Call leahy within reach.
--- NOTE | 2023-11-15 15:15 | W.PN.CARDCBS ---
Today's Communication / Plan
-
Stable for discharge, cardiology follow-up arranged
Impression / Plan
-
PCP: Nerissa Tse
CDY: None, new to Dr. Ayala
83-year-old male h/o HLD, COVID PNA 06/2023, PMR, COPD, dementia, BPH, GERD with Schatzki ring and associated dysphasia, former smoker who developed 10/10 chest pain rad b/l arms with SOB and called 911. On arrival to ER EKG with inferior ST
elevations and a STEMI alert called. ASA, Heparin, Brilinta were given in ER and he was brought urgently to laborer operator.
Impression:
Inferior STEMI
post PCI RCA x 2 HARLEY 11/14/23
Residual 60% L main stenosis, medically managed
Hyperlipidemia
PMR
COPD
COVID Pneumonia 06/2023
BPH
mild Dementia
spinal stenosis
Anxiety/Depression
GERD
Schatzki's ring h/o aspiration requiring intubation 2018
former smoker
Osteoporosis
Plan:
-Patient presented as inferior STEMI. trop peaked at 38.9. Underwent RCA PCIx2 on 11/13/23
-Noted to have residual 60% left main stenosis, plan for medical management at this time
-Feeling well this morning. No chest discomfort
-R radial and R fem cath sites neurovascularly intact
-DAPT with ASA/Plavix as brilinta cost prohibitive
-Start Lipitor 80 mg
-Continue low-dose beta-sunday. Patient with occasional PVCs.
-cardiac rehab c/s
Stable for discharge, Op cardiac follow up arranged
d/w patient and at bedside
Progress Note - Preschool Program Director
Subjective
Date of Service: November 15, 2023
No acute overnight events. Patient is resting comfortably in bed. No chest discomfort or SOB.
Objective
Labs:
11/15/23 02:41
06/06/24 02:41
Labs
Hgb 10.9 g/dL (13.0-18.0) L 11/15/23 02:41
Hct 31.8 % (39.0-52.0) L 11/15/23 02:41
Plt Count 245 10^3/uL (130-400) 11/15/23 02:41
APTT 30.4 Sec (23.4-35.0) 11/13/23 11:49
Sodium 135 mmol/L (135-145) 11/15/23 02:41
Potassium 3.8 mmol/L (3.5-5.1) 11/15/23 02:41
BUN 19 mg/dl (9-20) 11/15/23 02:41
Creatinine 0.9 mg/dL (0.7-1.3) 11/15/23 02:41
Glucose 94 mg/dl (70-99) 11/15/23 02:41
Troponins
11/13/23 11/13/23 11/14/23
11:49 21:49 04:29
Troponin I 0.054 H* 38.900 H* 28.600 H* D
Vital Signs and I&O:
Vital Signs
Temp Pulse Resp BP Pulse Ox
99.2 F 80 20 103/63 98
11/15/23 11:20 11/15/23 13:45 11/15/23 11:20 11/15/23 11:17 11/15/23 11:20
Vital Signs
Temp Pulse Resp BP Pulse Ox
99.2 F 80 20 103/63 98
11/15/23 11:20 11/15/23 13:45 11/15/23 11:20 11/15/23 11:17 11/15/23 11:20
Intake & Output
11/13/23 11/14/23 11/15/23 11/16/23
06:59 06:59 06:59 06:59
Intake Total 540 / 540 240 / 240
Output Total 650 / 650
Balance -110 / -110 240 / 240
Physical Exam
Physical Exam
Gen: NAD, AA
HEENT: NC/AT, sclera anicteric
Neck: No JVD
CV: RRR, NL s1/s2
Lungs: CTAB
Abd: S/ND
Ext: No LE edema
Skin: Warm, dry
Neuro: Non-focal
[2023-11-15 15:28] VITALS: BP 125/70
--- NOTE | 2023-11-15 15:54 | W.PN.HOSP.TC ---
Today's Communication/Plan
-
Discharge today
Assessment / Plan
Assessment / Plan
Physical Exam
General: No Apparent Distress and Comfortable
HEENT: Normocephalic and Moist mucous membranes
Respiratory: Clear
Cardiac: S1/S2 and Regular Rhythm
GI: Soft, Non Tender and Normal Bowel Sounds
Musculoskeletal: No Cyanosis and No Edema
Skin: Warm and Dry
Neuro: Awake and Alert
Psych: Calm
Assessment/Plan
Presentation with Chest Pain and Shortness of Breath Secondary to STEMI
Inferior STEMI
-Status post PCI RCA x 2 HARLEY on 11/13/23. Noted to have residual 60% left main stenosis, plan for medical management at this time.
-DAPT ASA/Plavix (patient cannot afford Brilinta)
-Beta Raven with Lopressor 12.5 mg PO BID
-Stop gemfibrozil new start to atorvastatin 80 mg
-Monitor for 1 more day
HLD
-Continue newly started high-intensity statin
-Stop Gemofibrozil as per cardiology
COVID PNA 06/2023
PMR
-Continue home steroids
COPD
-Stable
-Continue to monitor
Dementia
-Continue home Donepezil
BPH
GERD with Schatzki ring and associated dysphagia -- continue home PPI or equivalent
Spinal stenosis
History of skin cancer and Mohs surgery
Anxiety
Depression
Diverticulitis with perforation
Aspiration pneumonia 2019 requiring intubation
Osteoporosis
Former smoker
DVT Prophylaxis: Lovenox
Code Status: Full Code
More than 30 minutes spent in discharge including
Final examination of the patient
Summarizing hospital stay
Instructions for continuing care to all relevant caregivers
Preparation of discharge records, prescriptions, and referral forms
Total time spent (in minutes): 37
Anticipated Discharge: Today
Subjective/Interval History
-
Date of Service: November 15, 2023
Patient was seen and examined. He denied any chest pain or shortness of breath.
Objective Data
-
Vital Signs:
Vital Signs
Temp Pulse Resp BP Pulse Ox
99.6 F 83 18 125/70 97
11/15/23 15:30 11/15/23 15:28 11/15/23 15:30 11/15/23 15:28 11/15/23 15:30
I&O
11/14/23 11/15/23 11/16/23
06:59 06:59 06:59
Intake Total 540 / 540 240 / 240
Output Total 650 / 650
Balance -110 / -110 240 / 240
--- NOTE | 2023-11-15 16:37 | W.DS.TRANS ---
DC Summary - Director Electrical Engineering
-
Discharge Instructions:
Discharge Diagnosis/Procedures Angioplasty with stent to RCA x1
Presentation with Chest Pain and Shortness of
Breath Secondary to Inferior STEMI status post
successful percutaneous coronary intervention of
90% acute hazy heavily calcified stenosis of
mid RCA with two overlapping 4.0x18mm and 4.
0x12mm [employer] [place] drug eluting
stents with excellent angiographic result.
HLD
COVID PNA 06/2023
Polymyalgia Rheumatica
COPD
Dementia
BPH
GERD with Schatzki ring and associated dysphagia
Spinal stenosis
History of skin cancer and Mohs surgery
Anxiety
Depression
Diverticulitis with perforation
Aspiration pneumonia 2018 requiring intubation
Osteoporosis
Former smoker
Diet Low Cholesterol,2 Gram Sodium,Low Fat
Activity No strenuous activity
Additional Activity for 2 weeks
Driving Restrictions No driving for 24 hours
Other Services Cardiac Rehab
Instructions:
Stand-Alone Forms: DC Instructions- Cath/EP Lab
Changes to Home Medications: Yes
Discharge Medications:
DC Medications w/original date entered in [facility] [employer]
donepezil 10 mg tablet 10 mg PO DAILY Mental Health/Anxiety 06/15/19
prednisone 1 mg tablet 3 mg PO DAILY Infection 06/15/19
albuterol sulfate 90 mcg/actuation aerosol inhaler 2 puff inhalation R Q4 PRN sob/wheezing 06/20/23
escitalopram oxalate 20 mg tablet 20 mg PO DAILY 06/20/23
ibuprofen 600 mg tablet 600 mg PO TID PRN mild pain/fever 06/20/23
diphenhydramine HCl 50 mg capsule 50 mg PO HS PRN insomnia 11/13/23
aspirin 81 mg chewable tablet 81 mg PO DAILY #30 tabs 11/15/23
atorvastatin 80 mg tablet 80 mg PO QPM High cholesterol #30 tabs 11/15/23
clopidogrel 75 mg tablet 75 mg PO DAILY Heart disease/condition #30 tabs 11/15/23
metoprolol tartrate 25 mg tablet 12.5 mg (1/2 x 25 mg) PO BID Heart disease/condition #60 tabs 11/15/23
pantoprazole 40 mg tablet,delayed release 40 mg PO DAILY Gastrointestinal issue #30 tabs 11/15/23
Home Medication Changes
-STOP taking gemfibrozil
-STOP taking omeprazole, it has been replaced with Protonix (pantoprazole)
-Aspirin, Clopidogrel, Atorvastatin, Metoprolol Tartrate and Pantoprazole are new medications
Pending Results: No
Total time spent discharging patient (in min): 37
== END 2023-11-15 17:10 | disposition home or self-care (01) | DRG 322 ==
LOC: IVU 14:45
PROVIDERS: Nurse Practitioner Adult Health; ADMITTING PHYSICIAN Hospitalist; CONSULT PHYSICIAN Internal Medicine Interventional Cardiology; EMERGENCY PHYSICIAN Emergency Medicine
PROC: B2151ZZ Fluoroscopy of Left Heart using Low Osmolar Contrast (ICD-10-PCS; 2023-11-13)
PROC: 4A023N7 Measurement of Cardiac Sampling and Pressure, Left Heart, Percutaneous Approach (ICD-10-PCS; 2023-11-13)
PROC: 027135Z Dilation of Coronary Artery, Two Arteries with Two Drug-eluting Intraluminal Devices, Percutaneous Approach (ICD-10-PCS; 2023-11-13)
PROC: B2111ZZ Fluoroscopy of Multiple Coronary Arteries using Low Osmolar Contrast (ICD-10-PCS; 2023-11-13)
DX: I21.19 ST elevation (STEMI) myocardial infarction involving other coronary artery of inferior wall (principal); F03.A3 Unspecified dementia, mild, with mood disturbance; F03.A4 Unspecified dementia, mild, with anxiety; Z87.891 Personal history of nicotine dependence; F32.A Depression, unspecified; K21.9 Gastro-esophageal reflux disease without esophagitis; E78.00 Pure hypercholesterolemia, unspecified
CPT/HCPCS: 80048; 80053; 80061; 83036; 83735; 84484; 85025; 85027; 85347; 85730; 86850; 86900; 86901; 93005; 93306; 93458; 97162; 97166; 99152; 99153; C1725; C1760; C1769; C1874; C1894; C9606; Q9967

== ENCOUNTER 2023-11-17 18:59 | Inpatient (IN) | payer MEDICARE, SELFPAY ==
[2023-11-17] VITALS (8 sets, daily range): BP systolic 98–111; BP diastolic 51–75; BMI 23.9; BMI 19.8
--- NOTE | 2023-11-17 16:00 | ED.GENMED ---
History of Present Illness
General
Chief Complaint: Fever
Source: patient and spouse
Time Seen by Provider: 11/17/23 15:00
Travel History
Have you had any contact with someone who has COVID-19?: No
Do you have any symptoms of coronavirus? Fever > 100 degrees, chills, cough, shortness of breath, sore throat, loss of taste or smell, muscle aches, or headache?: No
History of Present Illness
History of Present Illness:
83-year-old male presents to the emergency room for evaluation of weakness. Patient discharged from this hospital couple days ago after a admission for an acute LA. Patient has been weak since he has gotten home. He had a fall yesterday. He did
not strike his head. Today he is more confused, incontinent of urine and stool. These are dramatic changes from his baseline. Upon arrival here patient found to have a fever of 101. Patient has not had a cough. He denies urinary symptoms.
Past History
Past History
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
dysphagia/Schatzki's ring) and Other (Diverticulitis, )
ED Past Surgical History: Appendectomy, Bowel resection ( Colon resection for diverticulitis with colostomy and then reversal), Orthopedic (Back surgery for spinal stenosis, Knee surgery right, Left hip pin and screws) and Tonsilectomy
Social History
Tobacco: Former smoker
Alcohol: Occasional
Drug: None
Personal:
Living: with family
Employment: Employed
Family History
Family History: Negative Early CAD
Phy Exam
Physical Exam
Physical Exam:
General: Awake, Alert, Oriented X3. No acute distress.
Vitals: unremarkable
Head: Atraumatic
Eyes: Pupils equal, EOMI
Throat: Airway intact, no exudates, dry mucosa
Neck: Trachea midline
Lungs: Clear and equal b/l
Heart: Regular rate, no murmurs
Abd: Soft, Nontender, No pulsatile mass
Neuro: Nonfocal
Skin: Warm, dry, no rash
Extremities: pulses equal b/l, no edema
Course
Orders/Labs/Results
Orders:
Orders
11/17/23 15:38
CR Chest - 2 Views Urgent
Comment:
Reason For Exam: sob, fever, hypoxia
11/17/23 15:56
COVID-19 Antigen Urgent
Source: Nasal Swab
CPK [Creatine Phosphokinase] Urgent
Complete Blood Count/With Diff Urgent
Comprehensive Metabolic Panel Urgent
Lactic Acid Q4H
Comment: ON ICE, CANCEL 2ND ORDER IF FIRST LACTIC ACID LEVEL <2
Blood Culture Urgent
STEPHANIE Source: Blood/Venous
Specimen Description:
11/17/23 16:00
Influenza A+B Rapid Molecular Urgent
STEPHANIE Source: Nasal Swab
Specimen Description:
Date Specimen was Collected: 11/17/23
Time Specimen was Collected: 15:57
11/17/23 16:08
0.9% Sodium Chloride 1000 ml [Nss] 1,000 ml IV BOLUS
Acetaminophen [Tylenol] 650 mg PO NOW STA
11/17/23 17:16
Urinalysis Reflex To Culture Routine
11/17/23 17:35
Cefepime HCl [Maxipime] 2,000 mg IV NOW STA
11/17/23 17:57
Blood Culture Urgent
STEPHANIE Source: Blood/Venous
Specimen Description:
11/17/23 17:59
Sterile Water [Sterile Water For Injection] 10 ml .ROUTE .STK-MED ONE
Abnormal Lab Results
11/17/23
15:56
WBC 12.2 H 10^3/uL
(4.8-10.8)
RBC 3.45 L 10^6/uL
(4.70-6.10)
Hgb 10.7 L g/dL
(13.0-18.0)
Hct 31.1 L %
(39.0-52.0)
MPV 10.8 H fL
(7.4-10.4)
Abs Immat Gran (auto) 0.1 H 10^3/uL
(0-0.05)
Absolute Neuts (auto) 10.9 H 10^3/uL
(1.4-6.5)
Absolute Lymphs (auto) 0.4 L 10^3/uL
(1.2-3.4)
Absolute Monos (auto) 0.9 H 10^3/uL
(0.1-0.6)
Neutrophils % 89.0 H %
(42.2-75.2)
Lymphocytes % 3.1 L %
(20.5-51.1)
Sodium 128 L mmol/L
(135-145)
Carbon Dioxide 21 L mmol/L
(22-30)
BUN 21 H mg/dl
(9-20)
Glucose 120 H mg/dl
(70-99)
Total Protein 5.8 L g/dl
(6.3-8.2)
Albumin 3.4 L g/dl
(3.5-5.0)
11/17/23 15:56
11/17/23 15:56
Vital Signs
Initial and Last Documented VS:
Initial Vital Signs
Temp Pulse Resp BP Pulse Ox
101.1 F H 81 22 98/51 88
11/17/23 14:56 11/17/23 14:56 11/17/23 14:56 11/17/23 14:56 11/17/23 14:56
Last Documented Vital Signs
Temp Pulse Resp BP Pulse Ox
101.1 F H 77 33 102/54 95
11/17/23 14:56 11/17/23 17:15 11/17/23 17:15 11/17/23 17:10 11/17/23 17:15
MDM/Problems Addressed
Differential Diagnosis Includes:
Pneumonia, urinary tract infection, COVID, influenza
MDM/Problems Addressed:
Patient presents with fever, confusion, lack of energy. Workup here reveals pneumonia. Is not hypoxic but he is too weak to be discharged home. Will start cefepime.
Chronic conditions affecting care: HTN and CAD
*Pulse Oximetry
Patient hypoxic: yes
*Site Interpreter Interpretation
Rate: normal
Interpretation: normal
Rhythm: sinus
*Critical Care Note
Total Time (30-74mins, 75-104mins- exclusive of procedures): Not Applicable
ED Attending Note
-
Portions of this chart may have been created with voice recognition software.� Occasional wrong word or��sound alike� substitutions may have occurred due to the inherent limitations of voice recognition software.
Discharge Plan
Departure
Patient Disposition: Admit
Date of Disposition: 11/17/23
Time of Disposition: 17:40
Admit to: Med/Surg
Presentation/result/management discussed w/ accepting MD/DO: Hospitalist
Condition: Fair
Discharge Problem:
Pneumonia
Prescriptions:
No Action
donepezil 10 MG tablet
10 mg PO DAILY
prednisone 1 MG tablet
3 mg PO DAILY
escitalopram oxalate 20 mg tablet
20 mg PO DAILY
clopidogrel 75 mg Tablet
75 mg PO DAILY Qty: 30 11RF
pantoprazole 40 mg Tablet,Delayed Release (Dr/Ec)
40 mg PO DAILY Qty: 30 11RF
metoprolol tartrate 25 mg Tablet
12.5 mg PO BID Qty: 60 11RF
atorvastatin 80 mg Tablet
80 mg PO QPM Qty: 30 11RF
aspirin 81 mg tablet,chewable
81 mg PO DAILY Qty: 30 11RF
Referrals:
UNKNOWN - PT DOES,NOT KNOW [Family Provider] -
Interventions
Interventions:
*Risk Screen - Suicide Last Done: 11/17/23 14:56
*General Assessment Last Done: 11/17/23 14:56
ED- Neurological Assessment Last Done: 11/17/23 15:36
ED-Skin Assessment Last Done: 11/17/23 15:36
Discharge Date and Time
Print Language: SWEDISH
[2023-11-17] MEDS: NSS 1000 IV ×2 (16:15→21:03)
[2023-11-17] MEDS: TYLENOL 650 MG PO ×2 (16:15→21:22)
[2023-11-17 16:22] LABS: % Basophils 0.1 % (0-2); % Immature Granulocytes 0.5 % (0-0.5); % Lymphocytes 3.1 % (20.5-51.1); % Monocytes 7.3 % (1.7-9.3); Absolute Immature Granulocytes 0.1 10^3/uL (0-0.05); Absolute Lymphocytes 0.4 10^3/uL (1.2-3.4); Absolute Monocytes 0.9 10^3/uL (0.1-0.6); Absolute Neutrophils 10.9 10^3/uL (1.4-6.5); Hematocrit 31.1 % (39.0-52.0); Hemoglobin 10.7 g/dL (13.0-18.0); Mean Corp Hgb Conc. 34.4 g/dL (33.0-37.0); Mean Corpuscular Volume 90.1 fL (80.0-94.0); Mean Platelet Volume 10.8 fL (7.4-10.4); Nucleated Red Blood Cells % 0 % (-); Platelet Count 258 10^3/uL (130-400); Red Blood Cell Count 3.45 10^6/uL (4.70-6.10); Red Cell Dist. Width 12.5 % (11.5-14.5); White Blood Cell Count 12.2 10^3/uL (4.8-10.8)
[2023-11-17 16:23] LABS: Lactic Acid 1.2 mmol/L (0.7-2.0)
[2023-11-17 16:26] LABS: ALT (SGPT) 29 U/L (0-50); AST (SGOT) 54 U/L (17-59); Albumin 3.4 g/dl (3.5-5.0); Alkaline Phosphatase 67 U/L (38-126); Blood Urea Nitrogen 21 mg/dl (9-20); Calcium 8.4 mg/dl (8.4-10.2); Carbon Dioxide 21 mmol/L (22-30); Chloride 98 mmol/L (98-107); Creatine Phosphokinase 103 U/L (55-170); Estimated Creatinine Clearance 55 ml/min; Glucose 120 mg/dl (70-99); Potassium 3.5 mmol/L (3.5-5.1); Sodium 128 mmol/L (135-145); Total Bilirubin 0.7 mg/dl (0.2-1.3); Total Protein 5.8 g/dl (6.3-8.2); eGFR > 60.00
[2023-11-17 16:35] LABS: COVID-19 Antigen Negative (Negative)
[2023-11-17] MEDS: MAXIPIME 2000 MG IV (18:08)
--- NOTE | 2023-11-17 18:26 | HPS.HSE ---
Family Physician
-
Family Physician: NOT KNOW UNKNOWN - PT DOES
Chief Complaint
-
Dyspnea on exertion, fever, lethargy
History of Present Illness
This is an 83-year-old male with past medical history of hypertension, hyperlipidemia, dementia who recently stopped MRI and status post PCI and stents to the mid RCA and discharged approximately 2 days ago now coming into the hospital with
lethargy, shortness of breath and fever.
Patient was initially feeling well after discharge. However it He had a precipitous decline with increasing fatigue, decreased appetite, shortness of breath and lethargy. Patient denied having any chest pain. Measured temperature at home and was
103 �F. She called the patient's ventilator specialist who referred him to the emergency department. Patient himself was not having any productive cough. He was mostly laying in bed and was not moving however with any movement he had significant shortness
of breath with orthopnea and coughing. No audible wheezes noted. Patient denied any lower extremity swelling. Had a fall today but did not hit head or pass out.
On arrival in the emergency department his blood pressure was 102/54 with a pulse rate of 72 and a temperature of 101.1 �F. Oxygen saturation is maintained at around 94% on 3-1/2 L nasal cannula.
Chest x-ray shows right-sided perihilar opacity as well is her right lower lobe interstitial opacity. He has a white count of 12,000 hemoglobin is stable platelet count is normal. Chemistries notable for a sodium of 138 potassium of 3.5 for BUN of
31 with a normal creatinine of 0.9.
Medical History
Past Medical History
Past Medical History: Reports CAD (s/p CA (inferior wall) and PCI to mid RCA ), COPD, GERD and HTN
Additional Past Medical History:
Polymyalgia Rheumatica
Past Surgical History: Reports None
Social History
Unable to obtain full social history at this time due to: Dementia
Tobacco: Non-smoker
Alcohol: None
Drug: None
Personal: Single
Living: With Family
Employment: Retired
Family History
Family History: Not pertinent
Allergies / Home Medications
Allergies reflects when Allergies were last updated in [facility].
Home Medications with original date entered in [facility]
Allergy/Medication List:
Allergies
Allergy/AdvReac Type Severity Reaction Status Date / Time
morphine Allergy Hives Verified 06/12/23 09:55
penicillin V [Penicillin V] Allergy Rash Verified 06/12/23 09:55
Home Medications
donepezil 10 mg tablet 10 mg PO DAILY Mental Health/Anxiety 06/15/19
prednisone 1 mg tablet 3 mg PO DAILY Infection 06/15/19
escitalopram oxalate 20 mg tablet 20 mg PO DAILY 06/20/23
aspirin 81 mg chewable tablet 81 mg PO DAILY #30 tabs 11/15/23
atorvastatin 80 mg tablet 80 mg PO QPM High cholesterol #30 tabs 11/15/23
clopidogrel 75 mg tablet 75 mg PO DAILY Heart disease/condition #30 tabs 11/15/23
metoprolol tartrate 25 mg tablet 12.5 mg (1/2 x 25 mg) PO BID Heart disease/condition #60 tabs 11/15/23
pantoprazole 40 mg tablet,delayed release 40 mg PO DAILY Gastrointestinal issue #30 tabs 11/15/23
Review of Systems
-
History Source: Family
Constitutional: Reports Fever and Fatigue
EENT: Reports No Symptoms
Respiratory: Reports Trouble Breathing
Cardiac: Reports No Symptoms
Abdomen/GI: Reports No Symptoms
: Reports No Symptoms
Musculoskeletal: Reports No Symptoms
Skin: Reports No Symptoms
Neurological: Reports Weakness
Endocrine: Reports No Symptoms
Hematologic/Lymphatic: Reports No Symptoms
Psych: Reports No Symptoms
Physical Exam
Vital Signs
Vital Signs
Temp Pulse Resp BP Pulse Ox
101.1 F H 77 33 102/54 95
11/17/23 14:56 11/17/23 17:15 06/08/24 17:15 11/17/23 17:10 11/17/23 17:15
Physical Exam
General: Comfortable and Fever
HEENT: NormoCephalic, Moist mucous membranes, Atraumatic and PERRLA
Respiratory: Crackles
Cardiac: S1/S2 and Regular Rhythm
Breast: Deferred by me
GI: Soft, Non Tender and Non Distended
Rectal: Deferred by Provider
Genito-urinary: Deferred by me
Musculoskeletal: No Clubbing, No Cyanosis and No Edema
Skin: Warm
Neuro: Awake, Alert and No Motor Deficits
Hematologic/Lymphatic: No Lymphadenopathy
Psych: Calm
Laboratory Results
-
11/17/23 15:56
11/17/23 15:56
Laboratory Results
Lactic Acid Cancelled 11/17/23 19:45
Total Bilirubin 0.7 mg/dl (0.2-1.3) 11/17/23 15:56
AST 54 U/L (17-59) 11/17/23 15:56
ALT 29 U/L (0-50) 11/17/23 15:56
Alkaline Phosphatase 67 U/L (38-126) 11/17/23 15:56
Data Reviewed
-
Diagnostic Radiology: Image Personally Visualized and interpreted and Report Reviewed by me
Medical Tests (Nuc Med, Echo, EKG etc): Image Personally Visualized and interpreted
Lab Data: Labs Reviewed by me
Old Records: Reviewed
Impression/Plan
-
IMPRESSION:
PLAN:
1. PNA - Hospital associated pneumonia w/ multifocal infiltrates, fever to 101.1, hypoxia and boderline low BP. Recently admitted with CA s/p PCI.
- admit to med/surg for now
- continue cefepime, add vancomycin for now
- blood cultures
- urinary legionella ag
- supportive care with NC oxygen, titrate for pulse ox > 92
- antitussives prn
- hydration with NS for now at 60 ml/hr
2. CAD - CAD s/p recent CA and PCI with stents with RCA
- continue aspirin plavix
- continue statin
- beta blocakde 12.5 bid
3. Hyponatremia - Recent low appetite and fever, combination of hypovolemia and siadh possible.
- bolus 1 L
- ns at 75 ml/hr overnight
- hold escitalopram
- check urine osmolality and lytes
- check random cortisol in am (patient chronically on steroids)
4. PMR
- continue prednisone 3mg daily
DVT PPX - lovenox sq
Code status - Full code
--- NOTE | 2023-11-17 20:10 | PTCARENOTE ---
Pt arrived from ED via stretcher, pulled onto bed. at the bedside. Pt disoriented to month, forgetful, able to make his own needs known. pox 98% on RA. 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
notified. CDiff sample ordered and PT transferred to different room. No issues. call leahy within reach.
--- NOTE | 2023-11-17 20:40 | PHA.VAN.IN ---
Assessment
- Assessment
Renal Function: Appears elevated from baseline (BASELINE SCR ~0.6 MG/DL)
Maximum Temperature: 101.1 F
Concomitant Antimicrobials: CEFEPIME
Plan
- Plan
Initial / Loading Dose: VANCO 1500MG X1
Monitoring: RANDOM VANCO LEVEL 11/17 @0600
MRSA Screen: Ordered per protocol
Pharmacokinetics Vancomycin I
- -
Patient Age: 83
Patient Sex: Male
Vancomycin Day #: 1
Indication: PULM
Requesting Provider: DR. MOORE
Pertinent Antimicrobial Allergies:
PENICILLN (RASH, TOLERATED CEFAZOLIN 2021)
Height / Weight:
Height 6 ft
Actual Weight 66.043 kg
Pertinent Past Medical History: HTN, HLD, DEMENTIA
- Vital Signs / Lab Results
Temp Pulse Resp BP Pulse Ox
101.1 F H 82 26 111/59 95
11/17/23 14:56 11/17/23 19:00 11/17/23 19:00 11/17/23 19:00 11/17/23 19:00
Lab Results - Hematology
11/17/23
15:56
WBC 12.2 H
Lab Results - Chemistry
11/17/23
15:56
BUN 21 H
Creatinine 0.9
Estimated Creat Clear 55
Albumin 3.4 L
11/17/23 11/17/23
15:56 19:45
Lactic Acid 1.2 Cancelled
Lab Results - Urine
11/17/23
16:43
Urine Nitrite (Reflex) Cancelled
Leukocyte Esterase Rfl Cancelled
Urine WBC (Reflex) Cancelled
Ur Squamous Epith Cells Cancelled
Urine Bacteria (Reflex) Cancelled
Microbiology Results
11/17/23 16:00 Influenza Types A & B (MELISSA) - Final
Nasal Swab Negative for Influenza A & B, NAAT
Negative results must be combined with clinical observations
and patient history.
Nucleic Acid Amplification test (NAAT)performed on the
[employer] platform.
--- NOTE | 2023-11-17 20:59 | W.PN.UPDATE ---
Update Note
Progress Note Update
Per , patient had multiple episodes of diarrhea yesterday and today.
New orders of stool for c- diff. Patient currently on abx will start the patient on daily probiotic.
[2023-11-17] MEDS: VANCOCIN 300 MG IV (21:03)
[2023-11-17] MEDS: VANCOCIN 300 ML IV (21:03)
[2023-11-17] MEDS: LOPRESSOR 12.5 MG PO (23:07)
[2023-11-17] MEDS: VISBIOME 1 CAP PO (23:08)
[2023-11-17] MEDS: LIPITOR 80 MG PO (23:08)
[2023-11-17 23:20] LABS: Osmolality Urine 555 mOsm/kg (300-900)
[2023-11-17 23:21] LABS: Urine Albumin 1+ (Neg - Trace); Urine Bilirubin Negative (Negative); Urine Character Clear (Clear); Urine Color Yellow; Urine Glucose Negative (Negative); Urine Ketone Negative (Negative); Urine Leukocyte Negative (Negative); Urine Nitrite Negative (Negative); Urine Occult Blood 2+ (Negative); Urine Urobilinogen Negative (Neg - 1+)
[2023-11-17 23:33] LABS: Urine Sodium 47 mmol/L (30-90)
[2023-11-18] VITALS (7 sets, daily range): BP systolic 103–132; BP diastolic 57–96; PULSE 85; O2SAT 93
[2023-11-18 00:01] LABS: Urine Red Blood Cell 0-2 /HPF (0-2); Urine White Cell None Seen /HPF (0-5)
[2023-11-18] MEDS: MAXIPIME 2000 MG IV ×2 (05:52→17:03)
[2023-11-18] MEDS: STERILE WATER FOR INJECTION 10 ML IV ×2 (05:52→17:03)
[2023-11-18] MEDS: TYLENOL 650 MG PO ×3 (05:58→21:48)
[2023-11-18 06:26] LABS: Hematocrit 28.3 % (39.0-52.0); Hemoglobin 10.3 g/dL (13.0-18.0); Mean Corp Hgb Conc. 36.4 g/dL (33.0-37.0); Mean Corpuscular Hgb 31.6 pg (27.0-31.0); Mean Corpuscular Volume 86.8 fL (80.0-94.0); Mean Platelet Volume 10.4 fL (7.4-10.4); Platelet Count 246 10^3/uL (130-400); Red Blood Cell Count 3.26 10^6/uL (4.70-6.10); Red Cell Dist. Width 12.6 % (11.5-14.5); White Blood Cell Count 9.9 10^3/uL (4.8-10.8)
[2023-11-18] MEDS: VENTOLIN NEBULES 2.5 MG INH ×2 (06:44→15:58)
[2023-11-18 06:46] LABS: Blood Urea Nitrogen 17 mg/dl (9-20); Calcium 7.9 mg/dl (8.4-10.2); Carbon Dioxide 18 mmol/L (22-30); Chloride 102 mmol/L (98-107); Estimated Creatinine Clearance 73 ml/min; Glucose 106 mg/dl (70-99); Potassium 3.2 mmol/L (3.5-5.1); Sodium 129 mmol/L (135-145); eGFR > 60.00
[2023-11-18 06:49] LABS: Vancomycin Random 11.4 ug/ml
[2023-11-18 07:17] LABS: Cortisol, Random 40.4 ug/dl
[2023-11-18] MEDS: DESENEX/MITRAZOL/ZEASORB 1 APPLIC TOPICAL ×2 (08:13→21:48)
[2023-11-18] MEDS: PROTONIX 40 MG PO (08:14)
[2023-11-18] MEDS: DELTASONE 3 MG PO (08:15)
[2023-11-18] MEDS: ARICEPT 10 MG PO (08:15)
[2023-11-18] MEDS: LOW STRENGTH ASPIRIN 81 MG PO (08:15)
[2023-11-18] MEDS: PLAVIX 75 MG PO (08:15)
[2023-11-18] MEDS: VISBIOME 1 CAP PO (08:17)
[2023-11-18] MEDS: LOPRESSOR PO (08:17)
--- NOTE | 2023-11-18 08:27 | PHA.VAN.FU ---
Vancomycin Assessment / Plan
- Assessment
Renal Function: SCR Decreasing (SCr 0.9->0.7)
WBC's are: WNL
In the past 24 hrs, patient has been: Febrile (102.7 tmax)
Concomitant Antimicrobials: cefepime
- Assessment - Therapeutic Drug Monitoring
Random Level: 11.4 ~9 hours post 1500mg dose
- Dosing Plan
Adjust Regimen to: vanc 750 mg q12 h
New Regimen Predicts: AUC (442-516), Peak (25.7-30), Trough (12.6-14.7)
Dosing Comments: CrCl 73; Wt 66-77
- Monitoring Plan
No level(s) ordered at this time: consider in the next few days
- Follow Up
Pharmacy will continue to follow.
Vancomycin Follow UP
- -
Patient Age: 83
Patient Sex: Male
Vancomycin Day #: 2
Indication: Pulmonary/Respiratory
Requesting Provider: DR. MOORE
Pertinent Antimicrobial Allergies:
PENICILLN (RASH, TOLERATED CEFAZOLIN 2021)
Height / Weight:
Height 6 ft
Actual Weight 66.043 kg
Adjusted BW in k kg
Pertinent Past Medical History: HTN, HLD, DEMENTIA; BMI 19
- Vital Signs / Lab Results
Temp Pulse Resp BP Pulse Ox
99.4 F 83 22 113/57 93
11/18/23 07:00 11/18/23 07:00 11/18/23 07:00 11/18/23 07:00 11/18/23 07:00
Lab Results - Hematology
11/17/23 11/18/23
15:56 06:04
WBC 12.2 H 9.9
Lab Results - Chemistry
11/17/23 11/18/23
15:56 06:04
BUN 21 H 17
Creatinine 0.9 0.7
Estimated Creat Clear 55 73
Albumin 3.4 L
11/17/23 11/17/23
15:56 19:45
Lactic Acid 1.2 Cancelled
Lab Results - Urine
11/17/23 11/17/23
16:43 23:08
Urine Nitrite (Reflex) Cancelled Negative
Leukocyte Esterase Rfl Cancelled Negative
Ur Squamous Epith Cells Cancelled 3-5
Microbiology Results
11/17/23 23:08 C. difficile GDH Antigen & Toxins - Final
Feces/Stool Negative for toxigenic C.difficile
11/17/23 23:08 Legionella Urinary Antigen - Final
Urine Negative for Legionella pneumophila Serogroup 1 antigen.
A negative result does not rule out the possiblity of
Legionella infection due to other serogroups or species of
Legionella. Clinical correlation is recommended.
11/17/23 16:00 Influenza Types A & B (MELISSA) - Final
Nasal Swab Negative for Influenza A & B, NAAT
Negative results must be combined with clinical observations
and patient history.
Nucleic Acid Amplification test (NAAT)performed on the
[employer] platform.
Therapeutic Drug Monitoring
Random Vancomycin 11.4 ug/ml 11/18/23 06:04
[2023-11-18] MEDS: NSS 1000 IV (10:05)
[2023-11-18 11:13] LABS: NT-proBNP 8090 pg/ml
--- NOTE | 2023-11-18 11:34 | PTOTSP ---
Speech Language Pathology
Clinical Swallow Evaluation
83M admitted for PNA p/w clinical s/s of at least a mildly impaired oropharyngeal swallow 2/2 increased coughing w/ PO and decreased bolus formation w/ regular solids. Aspiration risk is increased 2/2 coughing with PO, current PNA, and multiple
comorbidities (dementia, COPD, and GERD).
Recommendations:
1. Soft and bite sized (IDDSI 6), thin liquid (IDDSI 0) via single cup sips
2. Medications as tolerated
3. Feeding Strategies: PARTIAL supervision, upright 90 degrees, small bites, single sips, alternate bites and sips, make sure mouth is clean prior to next bite
4. General aspiration and reflux precautions
5. DIRECTOR ENERGY service to follow up, assess diet tolerance, and provide dysphagia tx PRN
--- NOTE | 2023-11-18 11:38 | W.PN.HOSP.TC ---
Today's Communication/Plan
-
Echo tomorrow
Continue antibiotics
Appreciate cardiology and nephrology
Assessment / Plan
Assessment / Plan
Physical Exam
General: Not in acute distress
HEENT: Normocephalic
Respiratory: Crackles
Cardiac: S1/S2 and Regular Rhythm
GI: Soft, Non Tender and Non Distended. Positive bowel sounds.
Musculoskeletal: No Cyanosis and No Edema
Skin: Warm
Neuro: Awake, Alert and No Motor Deficits
Psych: Calm
Assessment/Plan
#Presentation with lethargy, shortness of breath and fever
#PNA
#Acute Hypoxic Respiratory Insufficiency Secondary to Pneumonia and Possible Heart Failure
#Fever (Tmax 103 F)
- continue cefepime and vancomycin for now
- blood cultures
- check MRSA
- sputum cultures
- urinary legionella ag
- ProBNP elevated at 8090
- Echocardiogram tomorrow
- Cardiology consulted, recommendations appreciated
- supportive care with NC oxygen, titrate for pulse ox > 92%
- antitussives prn
- hydration with NS for now at 60 ml/hr -- caution with hydration in setting of possible CHF
#Diarrhea
-Check stool studies
#CAD - CAD s/p recent [place] and PCI with stents with RCA
- continue aspirin and plavix
- continue high-intensity statin
- Hold beta sunday 12.5 bid given marginal blood pressure
#Hyponatremia - Recent low appetite and fever, combination of hypovolemia and siadh possible.
- bolus 1 L
- ns at 75 ml/hr overnight
- hold escitalopram
- checked urine osmolality and lytes
- Consulted nephrology, recommendations appreciated
#PMR
- continue prednisone 3mg daily
DVT PPX - lovenox sq
Diet: IDDSI 6 with thin liquids (as per speech therapist)
Code status - Full code
Anticipated Discharge: > 48 hours
Subjective/Interval History
-
Date of Service: November 18, 2023
Patient was seen and examined. He reported feeling somewhat better than when he came in and denied any chest pain.
Objective Data
-
Labs:
Laboratory Results
11/18/23
06:04
WBC 9.9
Hgb 10.3 L
Hct 28.3 L
Plt Count 246
Sodium 129 L
Potassium 3.2 L
Chloride 102
Carbon Dioxide 18 L
BUN 17
Creatinine 0.7
Glucose 106 H
Calcium 7.9 L
Vital Signs:
Vital Signs
Temp Pulse Resp BP Pulse Ox
99.3 F 86 20 108/59 92
11/18/23 11:00 11/18/23 11:00 11/18/23 11:00 11/18/23 11:00 11/18/23 11:00
I&O
11/17/23 11/18/23 11/19/23
06:59 06:59 06:59
Intake Total 480 / 480
Output Total 500 / 500
Balance -20 / -20
--- NOTE | 2023-11-18 13:45 | CON.CAR ---
Consultation
Consultation Request
Date/Time Consultation Requested: 11/18/23
Date/Time Consultation Performed: 11/18/23
Requesting Provider: Ramirez
Performing Provider: Anum
Reason for Consultation: recent STEMI
Medical History
-
Chief Complaint: Lethargy normal fever, dyspnea
History of Present Illness:
Briefly, 83-year-old man with recent STEMI who underwent RCA PCI on 11/14/2023. Following discharge he had poor p.o. intake, diarrhea, chills and altered mental status and therefore was brought back to [place] emergency department for evaluation.
Here he has had fever with temperature up to 102.7 and leukocytosis however this may be chronic. Chest x-ray was concerning for right middle lobe pneumonia. He was started on broad-spectrum antibiotics for treatment of possible hospital-acquired
pneumonia Vanco/cefepime admitted to telemetry for further evaluation.
He is somewhat confused this morning at the time of my evaluation. He is not reporting any chest discomfort or shortness of breath to me.
Labs are notable for troponin of 1.2 which is significantly lower than when last checked post STEMI when it was 28.6. Of note proBNP is elevated to 8000.
PMHx:
Inferior STEMI
post PCI RCA x 2 HARLEY 11/14/23
Residual 60% L main stenosis, medically managed
Hyperlipidemia
PMR
COPD
COVID Pneumonia 06/2023
BPH
mild Dementia
spinal stenosis
Anxiety/Depression
GERD
Schatzki's ring h/o aspiration requiring intubation 2018
former smoker
Osteoporosis
Past Medical History
Past Medical History: Other (As above)
Past Surgical History: Other (As above)
Social History
Tobacco: Non-Smoker
Family History
Family History: Reviewed & Not Pertinent
Allergies / Home Medications
Allergy/AdvReac Type Severity Reaction Status Date / Time
morphine Allergy Hives Verified 06/12/23 09:55
penicillin V [Penicillin V] Allergy Rash Verified 06/12/23 09:55
�Medication �Instructions �Recorded �Confirmed �Type
donepezil 10 mg tablet 10 mg PO DAILY DEMENTIA 06/15/19 11/17/23 History
prednisone 1 mg tablet 3 mg PO DAILY polymyalgia 06/15/19 11/17/23 History
rheumatica
escitalopram oxalate 20 mg tablet 20 mg PO DAILY Mental 06/20/23 11/17/23 History
Health/Anxiety
aspirin 81 mg chewable tablet 81 mg PO DAILY #30 tabs 11/15/23 11/17/23 Rx
atorvastatin 80 mg tablet 80 mg PO QPM High cholesterol #30 11/15/23 11/17/23 Rx
tabs
clopidogrel 75 mg tablet 75 mg PO DAILY Heart 11/15/23 11/17/23 Rx
disease/condition #30 tabs
metoprolol tartrate 25 mg tablet 12.5 mg (1/2 x 25 mg) PO BID Heart 11/15/23 11/17/23 Rx
disease/condition #60 tabs
pantoprazole 40 mg tablet,delayed 40 mg PO DAILY Gastrointestinal 11/15/23 11/17/23 Rx
release issue #30 tabs
Review of Systems
-
History Source: Patient
All other systems: Negative unless noted
Physical Exam
Vital Signs
Temp Pulse Resp BP Pulse Ox
99.3 F 86 20 108/59 92
11/18/23 11:00 11/18/23 11:00 11/18/23 11:00 11/18/23 11:00 11/18/23 11:00
Lab Results
11/18/23 06:04
11/18/23 06:04
Troponin I 1.210 ng/ml H* 11/18/23 10:37
Mhw-G-[place] Pept 8090 pg/ml 11/18/23 10:37
Physical Exam
General: Well Developed
HEENT: Normocephalic
Respiratory: Crackles (Right middle and lower lung [place])
Cardiac: S1/S2, Regular Rhythm and Murmur (No murmur)
GI: Soft
Musculoskeletal: No Edema
Skin: Warm and Dry
Neuro: Awake
Psych: Calm and Confused
Impression / Plan
-
PCP: Nerissa Tse
CDY: None, new to Dr. Ayala
Impression:
PNA - ? asp PNA vs HAP
Recent inferior STEMI s/p PCI RCA x 2 HARLEY 11/14/23
Residual 60% L main stenosis, medically managed
Hyperlipidemia
PMR
COPD
COVID Pneumonia 06/2023
BPH
mild Dementia
spinal stenosis
Anxiety/Depression
GERD
Schatzki's ring h/o aspiration requiring intubation 2018
former smoker
Osteoporosis
Plan:
-Presenting with confusion, diarrhea and dyspnea found to have fever and leukocytosis with chest x-ray consistent with pneumonia�currently being treated with broad-spectrum antibiotics for possible hospital-acquired pneumonia
-Troponin downtrending from prior STEMI
-Of note proBNP is elevated to 8000
-Plan to check transthoracic echocardiogram - physical exam does not suggest mechanical complication of CO or decompensated heart failure
-Continue DAPT with ASA/Plavix as well as high intensity statin
-Okay to hold beta-sunday given marginal blood pressure
Data Reviewed
-
EKG: Tracing Personally Visualized and interpreted
Radiology: Image Personally Visualized and interpreted
Medical Tests (Nuc Med, Echo etc): Report Reviewed by me
Labs: Labs Reviewed by me
Old Records: Reviewed
[2023-11-18] MEDS: KCL 40 MEQ PO (14:32)
--- NOTE | 2023-11-18 16:13 | CM ---
Initial assessment completed with pt and at bedside.
Pt and live in a 2 story home with 4 steps to enter.
Pt is indep at baseline and was driving prior.
aides with cooking, cleaning, and laundry.
Pt has a cane that he uses occasionally.
Pt has been to [facility] in the past, but per was not a good experience and would not like to return.
Pt has used [facility] at home.
PCP; Dr. Richards
Pharm; [facility]
PLAN; Continue to follow and potential for VN need
[2023-11-18] MEDS: LIPITOR 80 MG PO (17:05)
[2023-11-18] MEDS: LOVENOX 40 MG SC (17:12)
[2023-11-18] MEDS: VANCOCIN 150 IV (17:13)
[2023-11-18 17:36] LABS: Blood Urea Nitrogen 13 mg/dl (9-20); Calcium 7.9 mg/dl (8.4-10.2); Carbon Dioxide 16 mmol/L (22-30); Chloride 101 mmol/L (98-107); Estimated Creatinine Clearance 64 ml/min; Glucose 138 mg/dl (70-99); Magnesium 2.1 mg/dl (1.6-2.3); Potassium 3.4 mmol/L (3.5-5.1); Sodium 127 mmol/L (135-145); eGFR > 60.00
[2023-11-18 17:37] LABS: Troponin I 0.968 ng/ml
--- NOTE | 2023-11-18 17:38 | W.CON.NEPH ---
Consultation
-
Date/Time Consultation Requested: 11/18/23 1030
Date/Time Consultation Performed: 11/18/23 1430
Requesting Provider: Hemanth Arora
Performing Provider: Adriane Persaud
Reason for Consultation: hyponatremia
Medical History
-
Chief Complaint: fever, PNA
History of Present Illness:
This is an 83-year-old male with past medical history of hypertension, hyperlipidemia on statin, PMR on prednisone, GERD with Schatzki ring associated with dysphagia on PPI, BPH, dementia on Donepezil, Lexapro, who recently had STEMI s/p PCI and
stents to the mid RCA, was discharged on 11/14 and he came back to ER on 11/16 with lethargy, shortness of breath and fever 103.
Following last discharge pt had precipitous decline with increasing fatigue, decreased appetite, diarrhea, shortness of breath and lethargy. Patient denied having any chest pain later developed fever of 103 �F. His it security project manager referred him to the
emergency department. He diagnosed with PNA and started on HAP Vanc and Cefepime, started O2 NS for mild hypoxia.. He has no cp or abd pain. no n/v now. UOP slightly decreased. Since admit his sodium remains low 128-129 despite IVF hence nephrology
consulted. Reportedly his BNP is also high at 8000. He offers no edema. He seem exhausted so history provided by his family at bedside. He still continues to to have fever. No recent NSAIDs since cardiac stent, decreased po intake.
Past Medical History
Inferior STEMI
post PCI RCA x 2 HARLEY 11/14/23
Residual 60% L main stenosis, medically managed
Hyperlipidemia
PMR
COPD
COVID Pneumonia 06/2023
BPH
mild Dementia
spinal stenosis
Anxiety/Depression
GERD
Schatzki's ring h/o aspiration requiring intubation 2018
former smoker
Osteoporosis
Past Surgical History: Other (CAD stent 11/2023)
Social History
Tobacco: Non-Smoker
Alcohol: None
Drug: None
Living: With Family
Employment: Retired
Family History
Family History: Not Pertinent
Allergies / Home Medications
Allergy/AdvReac Type Severity Reaction Status Date / Time
morphine Allergy Hives Verified 06/12/23 09:55
penicillin V [Penicillin V] Allergy Rash Verified 06/12/23 09:55
�Medication �Instructions �Recorded �Confirmed �Type
donepezil 10 mg tablet 10 mg PO DAILY DEMENTIA 06/15/19 11/17/23 History
prednisone 1 mg tablet 3 mg PO DAILY polymyalgia 06/15/19 11/17/23 History
rheumatica
escitalopram oxalate 20 mg tablet 20 mg PO DAILY Mental 06/20/23 11/17/23 History
Health/Anxiety
aspirin 81 mg chewable tablet 81 mg PO DAILY #30 tabs 11/15/23 11/17/23 Rx
atorvastatin 80 mg tablet 80 mg PO QPM High cholesterol #30 11/15/23 11/17/23 Rx
tabs
clopidogrel 75 mg tablet 75 mg PO DAILY Heart 11/15/23 11/17/23 Rx
disease/condition #30 tabs
metoprolol tartrate 25 mg tablet 12.5 mg (1/2 x 25 mg) PO BID Heart 11/15/23 11/17/23 Rx
disease/condition #60 tabs
pantoprazole 40 mg tablet,delayed 40 mg PO DAILY Gastrointestinal 11/15/23 11/17/23 Rx
release issue #30 tabs
Review of Systems
-
All complete 12 point ROS have been inquired and found negative other than state din HPI
Physical Exam
Vital Signs
Vital Signs
Temp Pulse Resp BP Pulse Ox
100.6 F H 88 22 132/74 98
11/18/23 17:03 11/18/23 16:08 11/18/23 16:08 11/18/23 15:00 11/18/23 16:08
Lab Results
WBC 9.9 10^3/uL (4.8-10.8) 11/18/23 06:04
RBC 3.26 10^6/uL (4.70-6.10) L 11/18/23 06:04
Hgb 10.3 g/dL (13.0-18.0) L 11/18/23 06:04
Hct 28.3 % (39.0-52.0) L 11/18/23 06:04
Plt Count 246 10^3/uL (130-400) 11/18/23 06:04
Sodium 127 mmol/L (135-145) L 11/18/23 16:34
Potassium 3.4 mmol/L (3.5-5.1) L 11/18/23 16:34
Chloride 101 mmol/L (98-107) 11/18/23 16:34
Carbon Dioxide 16 mmol/L (22-30) L 11/18/23 16:34
BUN 13 mg/dl (9-20) 11/18/23 16:34
Creatinine 0.8 mg/dL (0.7-1.3) 11/18/23 16:34
eGFR > 60.00 11/18/23 16:34
Glucose 138 mg/dl (70-99) H 11/18/23 16:34
Calcium 7.9 mg/dl (8.4-10.2) L 11/18/23 16:34
Ejy-Y-Dbmvnvvvnan Pept 8090 pg/ml 11/18/23 10:37
Albumin 3.4 g/dl (3.5-5.0) L 11/17/23 15:56
CXR: 11/16
IMPRESSION:
There is moderate new interstitial and confluent alveolar parenchymal airspace disease in the right perihilar region and posterior medial right lower lobe consistent with pneumonia
11/13:
echo:
CONCLUSIONS
Normal left ventricular chamber size. Mild concentric left ventricular
hypertrophy. Low normal left ventricular systolic function. Mild basal
inferior hypokinesis. Left ventricular ejection fraction is 53% by Olsen's
biplane method of discs. Stage I diastolic dysfunction suggestive of abnormal
relaxation.
Normal right ventricular size and function.
Mildly dilated Aortic root at the sinuses of Valsalva (4.0 cm).
Compared to previous echo 06/21/23, there is now a basal inferior wall motion
abnormality.
Physical Exam
General: Awake, Alert, Oriented, AOx3 and No Distress
HEENT: EOMI and Anicteric
Respiratory: Crackels, Normal Excursion and Nonlabored Respirations
Cardiac: S1/S2 and Regular Rate/Rhythm
Breast: Deferred by me
Abdomen: Soft, Nontender and Nondistended
Musculoskeletal: No Cyanosis and No Edema
Skin: No Rash
Neuro: Nonfocal/Grossly Intact
Psych: Mood/afflect pleasant and Appropriate
Data Reviewed
-
Radiology: Report Reviewed by me and Discussed with Family
Labs: Labs Reviewed by me, Discussed with Patient and Discussed with Family
Assessment/Plan
-
IMP:
HCAP-PNA
Acute Hypoxic Respiratory Insufficiency Secondary to Pneumonia and Possible Heart Failure
Diarrhea
Hyponatremia
non gap met acidosis
Hypokalemia
CAD - CAD s/p recent AR and PCI with stents with RCA 11/12
Hyperlipidemia
PMR
COPD
COVID Pneumonia 06/2023
BPH
mild Dementia
spinal stenosis
Anxiety/Depression
GERD
Schatzki's ring h/o aspiration requiring intubation 2018
former smoker
Osteoporosis
Plan:
Recent d/c after PCI stent for STEMI and returns 11/16 with PNA
Hyponatremia-was normal sodium prior admit
progressive decline with IVF , U osmo 555, U na 47 suggest SIADH vs hypervolemia
BNP is high at 8080 with normal cr suggest hypervolemic state
would d/c IVF at this time and will give dose of samsca today
likely start lasix in am, cortisol high appropriately
abx per primary, continues with fever still on dysphagia diet
replace k
monitor met acidosis- likely contributed by diarrhea and cl based IVF
BP soft on low dose BB, if decreases may need stress dose of steroids-chr prednisone therapy for PMR
d/w pt and family
d/w nursing
--- NOTE | 2023-11-18 18:35 | PTCARENOTE ---
patient spiked temperature of 103.0 at 1500. pt seen will chills developing. RN administered 650mg tylenol, along with ice packs. Pts temperature reassessed at 1600 with a temp of 103.3. Dr Miramontes made aware. blood cultures ordered. PT moved to
IMU at 3346 Report given. pt transferred safely.
[2023-11-18] MEDS: SAMSCA 7.5 MG PO (19:21)
[2023-11-19] VITALS (12 sets, daily range): BP systolic 100–139; BP diastolic 51–78; BMI 19.6
[2023-11-19 04:47] LABS: % Basophils 0.2 % (0-2); % Eosinophils 0.1 % (0-6); % Immature Granulocytes 0.9 % (0-0.5); % Lymphocytes 4.7 % (20.5-51.1); % Monocytes 5.5 % (1.7-9.3); % Neutrophils 88.6 % (42.2-75.2); Absolute Immature Granulocytes 0.1 10^3/uL (0-0.05); Absolute Lymphocytes 0.5 10^3/uL (1.2-3.4); Absolute Monocytes 0.6 10^3/uL (0.1-0.6); Absolute Neutrophils 10.2 10^3/uL (1.4-6.5); Hematocrit 32.5 % (39.0-52.0); Hemoglobin 11.1 g/dL (13.0-18.0); Mean Corp Hgb Conc. 34.2 g/dL (33.0-37.0); Mean Corpuscular Hgb 30.5 pg (27.0-31.0); Mean Corpuscular Volume 89.3 fL (80.0-94.0); Mean Platelet Volume 10.7 fL (7.4-10.4); Nucleated Red Blood Cells % 0 % (-); Platelet Count 327 10^3/uL (130-400); Red Blood Cell Count 3.64 10^6/uL (4.70-6.10); Red Cell Dist. Width 12.8 % (11.5-14.5); White Blood Cell Count 11.5 10^3/uL (4.8-10.8)
[2023-11-19 05:13] LABS: Blood Urea Nitrogen 12 mg/dl (9-20); Calcium 8.8 mg/dl (8.4-10.2); Carbon Dioxide 19 mmol/L (22-30); Chloride 105 mmol/L (98-107); Estimated Creatinine Clearance 64 ml/min; Glucose 108 mg/dl (70-99); Potassium 3.6 mmol/L (3.5-5.1); Sodium 135 mmol/L (135-145); eGFR > 60.00
[2023-11-19 05:18] LABS: Troponin I 0.937 ng/ml
[2023-11-19] MEDS: VANCOCIN 150 IV (05:28)
[2023-11-19] MEDS: STERILE WATER FOR INJECTION 10 ML IV ×2 (05:29→17:59)
[2023-11-19] MEDS: MAXIPIME 2000 MG IV ×2 (05:29→17:59)
--- NOTE | 2023-11-19 05:57 | PTCARENOTE ---
Pt with hx of dementia became increasingly confused during the night. Bed alarm on; Pt does not ring call leahy and gets up frequently to urinate setting off bed alarm. Pt assisted with urinal and reoriented to surroundings each time. Pt very
unsteady on feet and needs assistance and close supervision when urinating. OOB x 1 with RW. Will continue to monitor and assess.
[2023-11-19] MEDS: DESENEX/MITRAZOL/ZEASORB 1 APPLIC TOPICAL ×2 (08:17→20:42)
[2023-11-19] MEDS: PROTONIX 40 MG PO (08:17)
[2023-11-19] MEDS: VISBIOME 1 CAP PO (08:17)
[2023-11-19] MEDS: PLAVIX 75 MG PO (08:17)
[2023-11-19] MEDS: LOW STRENGTH ASPIRIN 81 MG PO (08:17)
[2023-11-19] MEDS: ARICEPT 10 MG PO (08:17)
[2023-11-19] MEDS: DELTASONE 3 MG PO (08:18)
[2023-11-19] MEDS: TYLENOL 650 MG PO ×2 (09:20→17:45)
--- NOTE | 2023-11-19 09:22 | W.PN.HOSP.TC ---
Addendum entered and electronically signed by Giorgio Carrillo MD 11/19/23 18:03:
Add on to list:
Abnormal BMI is not significant
Original Note:
Today's Communication/Plan
-
f/u blood cs report
continue abx
transfer tele
Assessment / Plan
Assessment / Plan
1. Sepsis - POA
Right lower lobe Pneumonia - presumed aspiration vs hospital acquired
h/o of dysphagia/aspiration pneumonia
-Chest x-ray at admission showing right lower lobe infiltrate
-Patient has a history of dysphagia and possibility of aspiration component. Speech therapy evaluated and currently on IDDSI 6 diet
-UA has been clear. Patient had some loose stools and was checked for C. difficile and negative.
-Sputum culture ordered.
-Patient continues to spike fever, blood culture has been collected after initiation of antibiotic for 24 hours. Follow-up result yield is low at this point
2. Hyponatremia
-Presumed hypovolemic versus euvolemic component
-Escitalopram on hold
-Got dose of tolvaptan 7.5 mg, sodium back to 135 normal today
3. Acute hypoxic respiratory failure
Chronic diastolic HF
-patient is on 4L o2 through NC
-Ef 53%, stage I diastolic dysfunction
-not on lasix. no signs of HF exacerbation.
3. Dementia with behavioral problems
-Likely related to sepsis/hyponatremia
-Currently patient pleasant. continue supportive care.
4. Acute diarrhea
-c-diff neg. will check further studies if diarrhea persists
-possible GI dysbiosis with antibiotic use
5. CAD
S/p recent inferior STEMI and PCI with stents with RCA
- continue aspirin and plavix
- continue high-intensity statin
- Hold beta sunday 12.5 bid given marginal blood pressure
6. PMR
- continue prednisone 3mg daily
DVT PPX - Lovenox sq
Code status - Full code
Anticipated Discharge: 24 - 48 hours
Subjective/Interval History
-
Date of Service: November 19, 2023
Patient continues to spike fever overnight
Hypoxic on 4 L oxygen through nasal cannula
Vital remains stable otherwise
Objective Data
-
Labs:
Laboratory Results
11/19/23
04:23
WBC 11.5 H
Hgb 11.1 L
Hct 32.5 L
Plt Count 327 D
Sodium 135 D
Potassium 3.6
Chloride 105
Carbon Dioxide 19 L
BUN 12
Creatinine 0.8
Glucose 108 H
Calcium 8.8
Vital Signs:
Vital Signs
Temp Pulse Resp BP Pulse Ox
98.5 F 92 27 120/67 95
11/19/23 03:25 11/19/23 06:00 11/19/23 06:00 11/19/23 06:00 11/19/23 00:17
I&O
11/18/23 11/19/23 11/20/23
06:59 06:59 06:59
Intake Total 480 / 480 1680 / 1680
Output Total 500 / 500 2200 / 2200 150 / 150
Balance -20 / -20 -520 / -520 -150 / -150
Review of Systems
-
Unable to obtain full review of systems at this time due to: Dementia
Respiratory: Reports No Symptoms
Cardiac: Reports No Symptoms
Abdomen/GI: Reports No Symptoms
Physical Exam
-
General: Appears Chronically Ill
HEENT: Moist Mucous Membranes and Oxygen (4L NC)
Respiratory: Clear to Auscultation
Cardiac: Regular Rhythm and S1/S2; Negative Murmur
GI: Soft, Nontender and Nondistended
Musculoskeletal: No Edema
Neuro: Awake, Alert and No Motor Deficits
Psych: Calm
--- NOTE | 2023-11-19 10:02 | CON.ID ---
Consultation
-
Date/Time Consultation Requested: 11/18/2023 1647
Date/Time Consultation Performed: 11/19/2023 1000
Requesting Provider: Dr. Miramontes
Performing Provider: Dr. Osborne
Reason for Consultation: Fever
Chief Complaint / Past History
History of Present Illness
Anatoliy Murillo is an 83-year-old male being evaluated at the request of Dr. Miramontes regarding fever. History is obtained from chart review, along with patient interview.
The patient recently was admitted to [facility], from 11/12 through 11/16, during which time he was treated for acute VA. He was discharged to home, but presents back yesterday secondary to generalized weakness. Since returning home he has had
ongoing weakness and sustained at least 1 fall. He was found to be more confused and also incontinent of bowel and bladder. Upon reevaluation in the emergency room, he was found to have a fever to 101 degrees, and further workup revealed a
leukocytosis. Infectious Diseases is asked to comment upon further antimicrobial therapy. The patient has been started on empiric antibiotic coverage of vancomycin and cefepime.
Past History
Additional Past Medical History:
Polymyalgia rheumatica
Lumbar spinal stenosis
COPD
Diverticular disease
Mild dementia
GERD
Additional Past Surgical History:
Left hip ORIF
Sigmoid resection
Lumbar laminectomy
Appendectomy
Right knee arthroscopy
Allergy History:
morphine Allergy (Verified 06/12/23 09:55)
Hives
penicillin V [Penicillin V] Allergy (Verified 06/12/23 09:55)
Rash
Medications Reviewed: Yes
Current Antibiotics:
Cefepime 2 g IV every 12 hours
Vancomycin (dosed per pharmacy)
Social History
Tobacco: Smoker
Alcohol: Former
Drug: None
Personal:
Living: With Family
Employment: Retired
Family History
Family History: Not Pertinent
Review of Systems
Vital Signs
Temp Pulse Resp BP Pulse Ox
101.3 F H 80 26 125/68 95
11/19/23 07:22 11/19/23 08:00 11/19/23 08:00 11/19/23 08:00 11/19/23 09:34
Physical Exam
Physical Exam
Constitutional: Acutely Ill, Chronically Ill and Non-toxic
Head: Normocephalic
Eyes: Pupils Equal, Pupils Round, No Conjunctival Hemorrhage and Sclera Anicteric
Oral: No Thrush and No Ulcers
Cardiovascular: Regular Rate and S1/S2; Negative S3/S4 or Murmur
Pulmonary: Coarse and Non Labored; Negative Wheezes or Rales
Gastrointestinal: Soft, Non Tender, Distended (mild), Normal Bowel Sounds, No Rebound and No Guarding
Genito-Urinary: Negative Mathias
Extremities: Negative Edema, Cyanosis, Erythema, Splinter Hemorrhage, Venous Insufficiency or Janeway Lesions
Skin: Warm and Dry; Negative Rash or Jaundice
Neurological: Awake and Alert
Psychological: Calm
Lab / Diagnostic Study Results
11/19/23 04:23
11/19/23 04:23
Abs Immat Gran (auto) 0.1 10^3/uL (0-0.05) H 11/19/23 04:23
Absolute Neuts (auto) 10.2 10^3/uL (1.4-6.5) H 11/19/23 04:23
Absolute Lymphs (auto) 0.5 10^3/uL (1.2-3.4) L 11/19/23 04:23
Absolute Monos (auto) 0.6 10^3/uL (0.1-0.6) 11/19/23 04:23
Absolute Basos (auto) 0.0 10^3/uL (0-0.2) 11/19/23 04:23
Immature Gran % 0.9 % (0-0.5) H 11/19/23 04:23
Neutrophils % 88.6 % (42.2-75.2) H 11/19/23 04:23
Lymphocytes % 4.7 % (20.5-51.1) L 11/19/23 04:23
Monocytes % 5.5 % (1.7-9.3) 11/19/23 04:23
Eosinophils % 0.1 % (0-6) 11/19/23 04:23
Basophils % 0.2 % (0-2) 11/19/23 04:23
Lactic Acid Cancelled 11/17/23 19:45
Ur Squamous Epith Cells 3-5 /LPF (Few) 11/17/23 23:08
Microbiology Results
Micro:
11/18/23 22:34 Blood Culture - Pending
Blood/Venous
11/17/23 18:06 Blood Culture - Preliminary
Blood/Venous No Growth in 24 hours- Final report to follow
11/18/23 17:24 Blood Culture - Pending
Blood/Venous
11/17/23 15:56 Blood Culture - Preliminary
Blood/Venous No Growth in 24 hours- Final report to follow
11/17/23 22:14 Nasal Screen MRSA (PCR) - Final
Nose MRSA not detected - performed by PCR methodology.
11/17/23 23:08 C. difficile GDH Antigen & Toxins - Final
Feces/Stool Negative for toxigenic C.difficile
11/17/23 23:08 Legionella Urinary Antigen - Final
Urine Negative for Legionella pneumophila Serogroup 1 antigen.
A negative result does not rule out the possiblity of
Legionella infection due to other serogroups or species of
Legionella. Clinical correlation is recommended.
11/17/23 16:00 Influenza Types A & B (MELISSA) - Final
Nasal Swab Negative for Influenza A & B, NAAT
Negative results must be combined with clinical observations
and patient history.
Nucleic Acid Amplification test (NAAT)performed on the
[employer] platform.
Imaging:
6/8/24 CXR (2 view): No acute mediastinal abnormalities. Interstitial confluent alveolar parenchymal airspace disease in the right perihilar region and posterior right medial right lower lobe consistent with pneumonia. Lungs are otherwise clear.
Assessment / Plan
Fever
Leukocytosis
Right lower lobe infiltrate/PNA
- suspected aspiration
Generalized weakness
Polymyalgia rheumatica
Lumbar spinal stenosis
COPD
Diverticular disease
Mild dementia
GERD
Recommendation:
Continue with current empiric antibiotics (vancomycin; cefepime).
Follow Vanco levels closely.
Blood cultures currently pending.
Monitor respiratory status; check sputum culture if any sputum produced.
Follow chest x-ray
--- NOTE | 2023-11-19 10:51 | W.PN.NEPH.PH ---
Today's Communication / Plan
-
maintain FR
follow bmp
Assessment/Plan
-
IMP:
HCAP-PNA
Acute Hypoxic Respiratory Insufficiency Secondary to Pneumonia and Possible Heart Failure
Diarrhea
Hyponatremia
non gap met acidosis
Hypokalemia
CAD - CAD s/p recent RI and PCI with stents with RCA 11/12
Hyperlipidemia
PMR
COPD
COVID Pneumonia 06/2023
BPH
mild Dementia
spinal stenosis
Anxiety/Depression
GERD
Schatzki's ring h/o aspiration requiring intubation 2018
former smoker
Osteoporosis
Plan:
Recent d/c after PCI stent for STEMI and returns 11/16 with PNA
Hyponatremia-was normal sodium prior admit
Holding SSRI
progressive decline with IVF , U osmo 555, U na 47 suggest SIADH vs hypervolemia
BNP is high at 8080 with normal cr suggest hypervolemic state
sodium up to 135 after samsca given
likely start lasix in am, cortisol high appropriately
abx per primary, continues with fever still on dysphagia diet
replace k
monitor met acidosis- likely contributed by diarrhea and cl based IVF
BP soft on low dose BB, if decreases may need stress dose of steroids-chr prednisone therapy for PMR
d/w pt and family
d/w nursing
-
-
Date of Service: November 19, 2023
CC / HPI / ROS
-
Chief Complaint:
Hyponatremia
History of Present Illness:
sodium up to 135 after samsca
maintained on FR
hemodynamically stable
Review of Systems:
nonoliguric
no chest pain or sob
Labs
-
Labs:
WBC 11.5 10^3/uL (4.8-10.8) H 11/19/23 04:23
RBC 3.64 10^6/uL (4.70-6.10) L 11/19/23 04:23
Hgb 11.1 g/dL (13.0-18.0) L 11/19/23 04:23
Hct 32.5 % (39.0-52.0) L 11/19/23 04:23
Plt Count 327 10^3/uL (130-400) D 11/19/23 04:23
Sodium 135 mmol/L (135-145) D 11/19/23 04:23
Potassium 3.6 mmol/L (3.5-5.1) 11/19/23 04:23
Chloride 105 mmol/L (98-107) 11/19/23 04:23
Carbon Dioxide 19 mmol/L (22-30) L 11/19/23 04:23
BUN 12 mg/dl (9-20) 11/19/23 04:23
Creatinine 0.8 mg/dL (0.7-1.3) 11/19/23 04:23
eGFR > 60.00 11/19/23 04:23
Glucose 108 mg/dl (70-99) H 11/19/23 04:23
Calcium 8.8 mg/dl (8.4-10.2) 11/19/23 04:23
Ksp-X-Ktwmafkbdir Pept 8090 pg/ml 11/18/23 10:37
Albumin 3.4 g/dl (3.5-5.0) L 11/17/23 15:56
Physical Exam
-
Vital Signs:
Vital Signs
Temp Pulse Resp BP Pulse Ox
101.3 F H 80 26 125/68 95
11/19/23 07:22 11/19/23 08:00 11/19/23 08:00 11/19/23 08:00 11/19/23 09:34
Cardiovascular:: Regular rate and rhythm
Respiratory:: Bilateral: CTA
Lung Excursion:: Normal
Abdomen:: Nontender and Soft
Bowel Sounds:: Normal
Extremity Edema:: None: Bilateral:
Mathias Catheter: No
--- NOTE | 2023-11-19 11:45 | W.PN.CARDCBS ---
Today's Communication / Plan
-
Continue treatment for pneumonia
Consider Lasix if remains hypoxic after treatment with pneumonia given elevated proBNP
Check echo
Restart Lopressor
Discussed with son at bedside
Impression / Plan
-
PCP: Nerissa Tse
CDY: None, new to Dr. Ayala
Impression:
PNA - ? asp PNA vs HAP
Recent inferior STEMI s/p PCI RCA x 2 HARLEY 11/14/23
Residual 60% L main stenosis, medically managed
Hyperlipidemia
PMR
COPD
COVID Pneumonia 06/2023
BPH
mild Dementia
spinal stenosis
Anxiety/Depression
GERD
Schatzki's ring h/o aspiration requiring intubation 2018
former smoker
Osteoporosis
Plan:
He is improved with treatment of pneumonia
Continue antibiotic
proBNP is elevated at 8090
Might consider eventually given diuretics if remains hypoxic with treatment of pneumonia
Will check echocardiogram
Continue DAPT with ASA/Plavix as well as high intensity statin status post HI on 11/14/2023
Will restart Lopressor in the form of Toprol as blood pressure is improved
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
Subjective
Date of Service: November 19, 2023
No complaints
Objective
Labs:
11/19/23 04:23
11/19/23 04:23
Labs
Hgb 11.1 g/dL (13.0-18.0) L 11/19/23 04:23
Hct 32.5 % (39.0-52.0) L 11/19/23 04:23
Plt Count 327 10^3/uL (130-400) D 11/19/23 04:23
Sodium 135 mmol/L (135-145) D 11/19/23 04:23
Potassium 3.6 mmol/L (3.5-5.1) 11/19/23 04:23
BUN 12 mg/dl (9-20) 11/19/23 04:23
Creatinine 0.8 mg/dL (0.7-1.3) 11/19/23 04:23
Glucose 108 mg/dl (70-99) H 11/19/23 04:23
Troponins
11/18/23 11/18/23 11/18/23
10:37 16:34 22:34
Troponin I 1.210 H* 0.968 H* 1.050 H*
11/19/23
04:20
Troponin I 0.937 H*
Vital Signs and I&O:
Vital Signs
Temp Pulse Resp BP Pulse Ox
99.3 F 91 26 118/65 94
11/19/23 11:38 11/19/23 10:00 11/19/23 10:00 11/19/23 10:00 11/19/23 11:33
Vital Signs
Temp Pulse Resp BP Pulse Ox
99.3 F 91 26 118/65 94
11/19/23 11:38 11/19/23 10:00 11/19/23 10:00 11/19/23 10:00 11/19/23 11:33
Intake & Output
11/17/23 11/18/23 11/19/23 11/20/23
06:59 06:59 06:59 06:59
Intake Total 480 / 480 1680 / 1680 480 / 480
Output Total 500 / 500 2200 / 2200 300 / 300
Balance -20 / -20 -520 / -520 180 / 180
Physical Exam
Physical Exam
General: Well developed, well nourished in NAD.
Neck: Supple, no JVD, HJR, carotids +2 B/L, no bruits bilaterally.
Heart: Non displaced PMI, RRR, no murmurs, No S3, S4, no rubs.
Lungs: Scattered rhonchi
Extremities: No clubbing, cyanosis or edema bilaterally.
Neuro: Grossly nonfocal, awake, alert and oriented x3.
[2023-11-19] MEDS: TOPROL XL 25 MG PO (12:15)
--- NOTE | 2023-11-19 12:43 | PN.CDI ---
CDI
- -
CDI:
Physician Documentation Request
Admit Date: 11/17/23 18:59
Dear Doctor Gerardo,
Patient admitted with sepsis.
Clinical Indicators:
Height: 6'
Weight:144 lbs
BMI:19.6
If possible, please provide an associated diagnosis related to the abnormal BMI, such as:
Underweight
Cachectic
Abnormal BMI is not significant
Other
BMI < or = to 19.9
Underweight
Weight Loss
Cachectic
Anorexia
Use of terms such as suspected, likely, concern for, or probable (associated with a specific diagnosis that is being evaluated, monitored, or treated as if it exists) are acceptable and can be coded in the inpatient setting, when documented at the
time of discharge.
Thank you,
Yarely Plummer RN, BSN
CDI Specialist
Available via [place] text
Please use your independent medical judgment in providing your response.
--- NOTE | 2023-11-19 16:16 | PTOTSP ---
Dysphagia Therapy
Video swallow study recommended to objectively assess swallowing given patient history (dementia, COPD, GERD, unspecified dysphagia) and current PNA. Family in agreement.
Recommendations:
1. Soft and bite sized (IDDSI 6), thin liquid (IDDSI 0) via single sips
2. Medications as tolerated
3. Feeding Strategies: supervision, upright 90 degrees, small bites, single sips, alternate bites and sips, make sure mouth is clean prior to next bite
4. General aspiration and reflux precautions
5. Video swallow study
--- NOTE | 2023-11-19 16:52 | CM ---
Patient with Hx dementia with Dx Sepsis, pneumonia, possible aspiration. O2 4L. Receiving IV Abx. PT recommends home PT vs skilled rehab. Per nurse assessment; forgetful.
Message to Dr Carrillo requesting OT Eval.
Phone call to patient's [facility]; left message requesting callback for d/c planning.
Plan follow up after OT Eval and follow patient's progress with PT.
Plan watch for home O2 needs.
Plan follow up with patient/ for SNF for rehab vs home with VN.
[2023-11-19] MEDS: LOVENOX 40 MG SC (17:44)
[2023-11-19] MEDS: LIPITOR PO (17:46)
[2023-11-19] MEDS: MELATONIN 3 MG PO (21:50)
[2023-11-20] VITALS (8 sets, daily range): BP systolic 105–122; BP diastolic 57–69; PULSE 74–76; O2SAT 93–94; BMI 19.3
[2023-11-20] MEDS: MAXIPIME 2000 MG IV ×2 (05:14→17:28)
[2023-11-20] MEDS: STERILE WATER FOR INJECTION 10 ML IV ×2 (05:14→17:29)
[2023-11-20 06:32] LABS: Hematocrit 29.4 % (39.0-52.0); Hemoglobin 10.5 g/dL (13.0-18.0); Mean Corp Hgb Conc. 35.7 g/dL (33.0-37.0); Mean Corpuscular Hgb 31.3 pg (27.0-31.0); Mean Corpuscular Volume 87.5 fL (80.0-94.0); Mean Platelet Volume 10.7 fL (7.4-10.4); Platelet Count 378 10^3/uL (130-400); Red Blood Cell Count 3.36 10^6/uL (4.70-6.10); White Blood Cell Count 10.6 10^3/uL (4.8-10.8)
[2023-11-20 06:44] LABS: Blood Urea Nitrogen 13 mg/dl (9-20); Calcium 8.4 mg/dl (8.4-10.2); Carbon Dioxide 22 mmol/L (22-30); Chloride 101 mmol/L (98-107); Estimated Creatinine Clearance 56 ml/min; Glucose 102 mg/dl (70-99); Potassium 3.3 mmol/L (3.5-5.1); Sodium 133 mmol/L (135-145); eGFR > 60.00
[2023-11-20] MEDS: VISBIOME 1 CAP PO (09:03)
[2023-11-20] MEDS: DELTASONE 3 MG PO (09:03)
[2023-11-20] MEDS: DESENEX/MITRAZOL/ZEASORB 1 APPLIC TOPICAL ×2 (09:04→20:17)
[2023-11-20] MEDS: PROTONIX 40 MG PO (09:04)
[2023-11-20] MEDS: TOPROL XL 25 MG PO (09:04)
[2023-11-20] MEDS: PLAVIX 75 MG PO (09:04)
[2023-11-20] MEDS: LOW STRENGTH ASPIRIN 81 MG PO (09:04)
[2023-11-20] MEDS: ARICEPT 10 MG PO (09:04)
[2023-11-20] MEDS: LASIX 40 MG IV (12:09)
[2023-11-20] MEDS: KCL 40 MEQ PO (12:09)
[2023-11-20] MEDS: VIBRAMYCIN 100 MG PO ×2 (12:09→20:17)
--- NOTE | 2023-11-20 12:33 | W.PN.CARDCBS ---
Addendum entered and electronically signed by Real Munoz MD 11/20/23 14:07:
I saw and examined the patient.
The MECHANICAL ENGINEERING DRAFTSPERSON or PA's note was reviewed and I agree with the note.
Comment: General: Well developed, well nourished in NAD.
Neck: Supple, no JVD, HJR, carotids +2 B/L, no bruits bilaterally.
Heart: Non displaced PMI, RRR, no murmurs, No S3, S4, no rubs.
Lungs: Scattered rhonchi
Extremities: No clubbing, cyanosis or edema bilaterally.
Neuro: Grossly nonfocal, awake, alert and oriented x3.
He remains on oxygen but feels better. Will give a dose of IV Lasix today given elevated proBNP. He is for swallowing study to exclude aspiration. Continue antibiotics. Discussed with primary service. Try to wean oxygen off
Original Note:
Today's Communication / Plan
-
Given dose of IV Lasix x 1 today
Replete potassium
Wean oxygen as tolerated
Continue antibiotics per hospitalist/ID
Swallowing eval pending
Impression / Plan
-
PCP: Nerissa Tse
CDY: None, new to Dr. Ayala
Impression:
Presented 11/17/2023 weakness, diarrhea, chills, poor oral intake
Altered mental status
Acute Hypoxic Respiratory Insufficiency
Sepsis secondary to aspiration Pneumonia
fever
Possible Heart Failure, probnp 8080
Abnormal troponin
Hyponatremia, improved with Samsca
Hypokalemia
Recent inferior STEMI s/p PCI RCA x 2 HARLEY 11/14/23
Residual 60% L main stenosis, medically managed
Hyperlipidemia
PMR
COPD
COVID Pneumonia 06/2023
BPH
mild Dementia
spinal stenosis
Anxiety/Depression
GERD
Schatzki's ring h/o aspiration requiring intubation 2018
former smoker
Osteoporosis
Echo 11/19/2023: EF 55 to 60%, mild basilar inferior hypokinesis. Mild concentric LVH. No significant valve disease
Echo 11/14/2023: EF 53% with mild basal inferior hypokinesis. Stage I DD. Mildly dilated aortic root at sinuses of Valsalva 4.0 cm
Plan:
Concern for aspiration pneumonia improved with antibiotics
Continue with current empiric antibiotics (vancomycin; cefepime) per ID
proBNP is elevated at 8090
Weight currently down 3 pounds compared to prior admission weight 11/13/2023
Preserved ejection fraction on echo as noted above.
Still requiring oxygen 2 L
Given dose of IV lasix x 1 11/19. Monitor and assess response
Hyponatremia improved with Samsca
Potassium 3.3 would replete
Continue Toprol, DAPT with ASA/Plavix as well as high intensity statin status post MD on 11/14/2023; most likely elevated troponin on admission was continuation of previously declining troponin level
Patient hemodynamically stable with reasonable blood pressure
History of Present Illness 11/18/23:
Briefly, 83-year-old man with recent STEMI who underwent RCA PCI on 11/14/2023. Following discharge he had poor p.o. intake, diarrhea, chills and altered mental status and therefore was brought back to [place] emergency department for evaluation.
Here he has had fever with temperature up to 102.7 and leukocytosis however this may be chronic. Chest x-ray was concerning for right middle lobe pneumonia. He was started on broad-spectrum antibiotics for treatment of possible hospital-acquired
pneumonia Vanco/cefepime admitted to telemetry for further evaluation.
He is somewhat confused this morning at the time of my evaluation. He is not reporting any chest discomfort or shortness of breath to me.
Labs are notable for troponin of 1.2 which is significantly lower than when last checked post STEMI when it was 28.6. Of note proBNP is elevated to 8000.
Progress Note - Surgery Scheduler
Subjective
Date of Service: November 20, 2023
Patient seen and evaluated. Patient's daughter at bedside. Reviewed finding of echo. She reports he looks more wiped out since returning from swallowing study
Objective
Labs:
11/20/23 05:29
11/20/23 05:29
Labs
Hgb 10.5 g/dL (13.0-18.0) L 11/20/23 05:29
Hct 29.4 % (39.0-52.0) L 11/20/23 05:
Plt Count 378 10^3/uL (130-400) 11/20/23 05:29
Sodium 133 mmol/L (135-145) L 11/20/23 05:29
Potassium 3.3 mmol/L (3.5-5.1) L 11/20/23 05:
BUN 13 mg/dl (9-20) 11/20/23 05:
Creatinine 0.9 mg/dL (0.7-1.3) 11/20/23 05:
Glucose 102 mg/dl (70-99) H 11/20/23 05:29
Troponins
11/18/23 11/18/23 11/18/23
10:37 16:34 22:34
Troponin I 1.210 H* 0.968 H* 1.050 H*
11/19/23
04:20
Troponin I 0.937 H*
Vital Signs and I&O:
Vital Signs
Temp Pulse Resp BP Pulse Ox
99.9 F 84 20 119/58 95
11/20/23 08:00 11/20/23 08:00 11/20/23 08:00 11/20/23 08:00 11/20/23 08:00
Vital Signs
Temp Pulse Resp BP Pulse Ox
99.9 F 84 20 119/58 95
11/20/23 08:00 11/20/23 08:00 11/20/23 08:00 11/20/23 08:00 11/20/23 08:00
Intake & Output
11/18/23 11/19/23 11/20/23 11/21/23
06:59 06:59 06:59 06:59
Intake Total 480 / 480 1680 / 1680 2039 / 2039
Output Total 500 / 500 2200 / 2200 650 / 650
Balance -20 / -20 -520 / -520 1390 / 1390
Physical Exam
Physical Exam
GEN: No distress, awake, Ox3
HEENT: supple, anicteric, mmm
LUNGS: Faint crackles at bases otherwise CTA, no wheezes/rales; wearing oxygen
CV: Reg, S1/S2, no murmur rub or gallop
ABD: soft, BS+, NT/ND
EXT: No edema, clubbing or cyanosis
NEURO: Gross non-focal
SKIN: No rash, warm, dry complete
--- NOTE | 2023-11-20 14:55 | PTOTSP ---
Addendum entered and electronically signed by Ellyn ST Olivia 11/20/23 15:52:
Met with for education after VSE. She reported she felt patient did not tolerate L6 soft/bite sized diet last night and requested further diet modification to L5 minced/moist. Notified MD. stated patient takes medications best whole in
puree. Cue for multiple swallows to help clear pharyngeal residue.
Original Note:
Video Swallow Study
Summary: Patient with at least mild oral and moderate pharyngeal stage of swallowing. There was trace transient aspiration without a cough with thin liquids via straw. There was at most moderate-severe pharyngeal retention with pudding thick
liquids reduced with cued dry swallows. Esophageal sweep revealed retention throughout the esophagus. Patient is at risk for top down and bottom up aspiration.
Recommendations:
1. IDDSI Level 6 (Soft/Bite Sized), IDDSI Level 0 (Thin Liquids)
2. Medications - 1 at a time with single sips of water
3. Strategies: full supervision, assist as needed, upright to 90 degrees, small single sips via cup, no straws, alternate bites with single sips of liquid (to help clear pharynx/esophagus), remain upright for at least 30 minutes after PO intake as a
reflux precaution
4. Oral care 3x daily
5. Consider GI consult to assess esophageal stage of swallowing. Patient is at risk to aspirate on an esophagram study.
6. Dysphagia therapy at the acute care level for patient/family education and instruction in compensations.
--- NOTE | 2023-11-20 15:11 | W.PN.HOSP.TC ---
Today's Communication/Plan
-
add doxy to regimen
f/u T curve
PT recommends rehab
wean off o2
Assessment / Plan
Assessment / Plan
1. Sepsis - POA
Right lower lobe Pneumonia - presumed aspiration vs hospital acquired
h/o of dysphagia/aspiration pneumonia
-Chest x-ray at admission showing right lower lobe infiltrate
-Patient has a history of dysphagia and possibility of aspiration component.
-UA has been clear. Patient had some loose stools and was checked for C. difficile and negative.
-Blood cs negative till date.
-Unable to get any good sputum sample, discharge order
-Clear speech therapy evaluation/VSE and on IDDSI 6 diet
-Currently on cefepime/IRAD to penicillin. Added doxycycline to regimen for covering atypical.
2. Hyponatremia
-Presumed hypovolemic versus euvolemic component
-Escitalopram on hold
-Got dose of tolvaptan 7.5 mg, sodium back to normal.
3. Acute hypoxic respiratory failure
Chronic diastolic HF
-patient is on 4L o2 through [place]
-Ef 53%, stage I diastolic dysfunction on last TTE
-Patient getting dose of IV Lasix today
-Wean off oxygen as possible
3. Dementia with behavioral problems
-Likely related to sepsis/hyponatremia
-Currently patient pleasant. continue supportive care.
4. Acute diarrhea
-c-diff neg. will check further studies if diarrhea persists
-possible GI dysbiosis with antibiotic use
5. CAD
S/p recent inferior STEMI and PCI with stents with RCA
- continue aspirin and plavix
- continue high-intensity statin
- Hold beta sunday 12.5 bid given marginal blood pressure
6. PMR
- continue prednisone 3mg daily
DVT PPX - Lovenox sq
Code status - Full code
Anticipated Discharge: 24 - 48 hours
Subjective/Interval History
-
Date of Service: November 20, 2023
no issues overnight
denies having dyspnea
Objective Data
-
Labs:
Laboratory Results
11/20/23
05:29
WBC 10.6
Hgb 10.5 L
Hct 29.4 L
Plt Count 378
Sodium 133 L
Potassium 3.3 L
Chloride 101
Carbon Dioxide 22
BUN 13
Creatinine 0.9
Glucose 102 H
Calcium 8.4
Vital Signs:
Vital Signs
Temp Pulse Resp BP Pulse Ox
98.1 F 74 18 105/57 95
11/20/23 11:16 11/20/23 11:16 11/20/23 11:16 11/20/23 11:16 11/20/23 11:16
I&O
11/19/23 11/20/23 11/21/23
06:59 06:59 06:59
Intake Total 1680 / 1680 2040 / 2040
Output Total 2200 / 2200 650 / 650
Balance -520 / -520 1390 / 1390
Review of Systems
-
Respiratory: Reports No Symptoms
Cardiac: Reports No Symptoms
Abdomen/GI: Reports No Symptoms
Physical Exam
-
General: Appears Chronically Ill
HEENT: Moist Mucous Membranes and Oxygen (4L NC)
Respiratory: Clear to Auscultation
Cardiac: Regular Rhythm and S1/S2; Negative Murmur
GI: Soft, Nontender and Nondistended
Musculoskeletal: No Edema
Neuro: Awake, Alert and No Motor Deficits
Psych: Calm
--- NOTE | 2023-11-20 15:31 | CM ---
Spoke with patients spouse bedside.
Discussed DCP and options reviewed.
Chose 4 facilities in order: [facility], [facility], [place] and [place].
Referrals placed.
VSE completed today.
Patient has had [facility] in the past.
Plan: skilled rehab once bed available, no auth needed (Medicare)
--- NOTE | 2023-11-20 15:35 | W.PN.NEPH.PH ---
Today's Communication / Plan
-
follow lytes
K repleted this am
IV lasix provided by cardiology today
Assessment/Plan
-
IMP:
HCAP-PNA
Acute Hypoxic Respiratory Insufficiency Secondary to Pneumonia and Possible Heart Failure
Diarrhea
Hyponatremia
non gap met acidosis
Hypokalemia
CAD - CAD s/p recent [place] and PCI with stents with RCA 11/12
Hyperlipidemia
PMR
COPD
COVID Pneumonia 06/2023
BPH
mild Dementia
spinal stenosis
Anxiety/Depression
GERD
Schatzki's ring h/o aspiration requiring intubation 2018
former smoker
Osteoporosis
Plan:
Recent d/c after PCI stent for STEMI and returns 11/16 with PNA
Hyponatremia-was normal sodium prior admit
Holding SSRI
progressive decline with IVF , U osmo 555, U na 47 suggest SIADH vs hypervolemia
BNP is high at 8080 with normal cr suggest hypervolemic state
sodium at 133 after samsca given two days ago
replete K
cardiology gave IV lasix this am
abx per primary, continues with fever still on dysphagia diet
monitor met acidosis- likely contributed by diarrhea and cl based IVF
BP soft on low dose BB, if decreases may need stress dose of steroids-chr prednisone therapy for PMR
d/w pt and family
d/w nursing
-
-
Date of Service: November 20, 2023
CC / HPI / ROS
-
Chief Complaint:
Hyponatremia
History of Present Illness:
sodium at 133 after samsca two days ago
maintained on FR
hemodynamically stable
Review of Systems:
nonoliguric
no reported chest pain or sob
lethargic
Labs
-
Labs:
WBC 10.6 10^3/uL (4.8-10.8) 11/20/23 05:29
RBC 3.36 10^6/uL (4.70-6.10) L 11/20/23 05:29
Hgb 10.5 g/dL (13.0-18.0) L 11/20/23 05:29
Hct 29.4 % (39.0-52.0) L 11/20/23 05:29
Plt Count 378 10^3/uL (130-400) 11/20/23 05:29
Sodium 133 mmol/L (135-145) L 11/20/23 05:29
Potassium 3.3 mmol/L (3.5-5.1) L 11/20/23 05:29
Chloride 101 mmol/L (98-107) 11/20/23 05:29
Carbon Dioxide 22 mmol/L (22-30) 11/20/23 05:29
BUN 13 mg/dl (9-20) 11/20/23 05:29
Creatinine 0.9 mg/dL (0.7-1.3) 11/20/23 05:29
eGFR > 60.00 11/20/23 05:29
Glucose 102 mg/dl (70-99) H 11/20/23 05:29
Calcium 8.4 mg/dl (8.4-10.2) 11/20/23 05:29
Dsl-L-Yttkenhhdau Pept 8090 pg/ml 11/18/23 10:37
Albumin 3.4 g/dl (3.5-5.0) L 11/17/23 15:56
Physical Exam
-
Vital Signs:
Vital Signs
Temp Pulse Resp BP Pulse Ox
98.1 F 74 18 105/57 95
11/20/23 11:16 11/20/23 11:16 11/20/23 11:16 11/20/23 11:16 11/20/23 11:16
Cardiovascular:: Regular rate and rhythm
Respiratory:: Bilateral: Coarse
Lung Excursion:: Normal
Abdomen:: Nontender and Soft
Bowel Sounds:: Normal
Extremity Edema:: None: Bilateral:
Mathias Catheter: No
--- NOTE | 2023-11-20 15:58 | W.PN.ID1 ---
Date of Service
Date of Service: November 20, 2023
Today's Communication
Continue cefepime for today.
Assessment / Plan
Fever
Leukocytosis
Right lower lobe infiltrate/PNA
- suspected aspiration
Generalized weakness
Polymyalgia rheumatica
Lumbar spinal stenosis
COPD
Diverticular disease
Mild dementia
GERD
Recommendation:
Continue with empiric cefepime. MRSA sceen negative and vanco d/c'ed.
Monitor respiratory status; check sputum culture if any sputum produced.
Follow chest x-ray
����������������������������������������������������������
Chief Complaint
-: Pneumonia
Subjective / Review of Systems
Review of Systems: No Fever and No Chills
Vital Signs / Physical Exam
Vital Signs
Vital Signs
Temp Pulse Resp BP Pulse Ox
98.1 F 74 18 105/57 96
11/20/23 11:16 11/20/23 11:16 11/20/23 11:16 11/20/23 11:16 11/20/23 15:41
Physical Exam
Constitutional: No Acute Distress, Comfortable, Chronically Ill and Non-toxic
Eyes: No Conjunctival Hemorrhage and Sclera Anicteric
Cardiovascular: S1/S2; Negative S3/S4
Pulmonary: Coarse and Non Labored; Negative Wheezes or Rales
Gastrointestinal: Soft, Non Tender, Non Distended and No Rebound
Neurological: Awake and Alert
Psychological: Calm
Objective Data
Lab Data
Lab Results
11/20/23 05:29
11/20/23 05:29
Estimated Creat Clear 56 ml/min 11/20/23 05:29
Lactic Acid Cancelled 11/17/23 19:45
Total Bilirubin 0.7 mg/dl (0.2-1.3) 11/17/23 15:56
AST 54 U/L (17-59) 11/17/23 15:56
ALT 29 U/L (0-50) 11/17/23 15:56
Alkaline Phosphatase 67 U/L (38-126) 11/17/23 15:56
Most recent labs reviewed.
Micro Results:
11/18/23 22:34 Blood Culture - Preliminary
Blood/Venous No Growth in 24 hours- Final report to follow
11/17/23 18:06 Blood Culture - Preliminary
Blood/Venous No Growth in 48 hours- Final report to follow
11/18/23 17:24 Blood Culture - Preliminary
Blood/Venous No Growth in 24 hours- Final report to follow
11/17/23 15:56 Blood Culture - Preliminary
Blood/Venous No Growth in 48 hours- Final report to follow
11/17/23 22:14 Nasal Screen MRSA (PCR) - Final
Nose MRSA not detected - performed by PCR methodology.
11/17/23 23:08 C. difficile GDH Antigen & Toxins - Final
Feces/Stool Negative for toxigenic C.difficile
11/17/23 23:08 Legionella Urinary Antigen - Final
Urine Negative for Legionella pneumophila Serogroup 1 antigen.
A negative result does not rule out the possiblity of
Legionella infection due to other serogroups or species of
Legionella. Clinical correlation is recommended.
11/17/23 16:00 Influenza Types A & B (MELISSA) - Final
Nasal Swab Negative for Influenza A & B, NAAT
Negative results must be combined with clinical observations
and patient history.
Nucleic Acid Amplification test (NAAT)performed on the
[email or web address] platform.
Imaging:
11/17/23 CXR (2 view): No acute mediastinal abnormalities. Interstitial confluent alveolar parenchymal airspace disease in the right perihilar region and posterior right medial right lower lobe consistent with pneumonia. Lungs are otherwise clear.
[2023-11-20] MEDS: LOVENOX 40 MG SC (17:29)
[2023-11-20] MEDS: LIPITOR 80 MG PO (17:29)
[2023-11-20] MEDS: MELATONIN 3 MG PO (21:26)
[2023-11-21 03:01] VITALS: BP 111/58
[2023-11-21] MEDS: STERILE WATER FOR INJECTION 10 ML IV (05:27)
[2023-11-21] MEDS: MAXIPIME 2000 MG IV (05:27)
[2023-11-21 06:00] VITALS: BMI 19.7
[2023-11-21 07:32] LABS: Hematocrit 28.8 % (39.0-52.0); Hemoglobin 10.1 g/dL (13.0-18.0); Mean Corp Hgb Conc. 35.1 g/dL (33.0-37.0); Mean Corpuscular Volume 88.3 fL (80.0-94.0); Mean Platelet Volume 10.4 fL (7.4-10.4); Platelet Count 367 10^3/uL (130-400); Red Blood Cell Count 3.26 10^6/uL (4.70-6.10); White Blood Cell Count 8.5 10^3/uL (4.8-10.8)
[2023-11-21 07:51] LABS: Blood Urea Nitrogen 18 mg/dl (9-20); Calcium 8.3 mg/dl (8.4-10.2); Carbon Dioxide 24 mmol/L (22-30); Chloride 101 mmol/L (98-107); Estimated Creatinine Clearance 64 ml/min; Glucose 104 mg/dl (70-99); Potassium 3.5 mmol/L (3.5-5.1); Sodium 133 mmol/L (135-145); eGFR > 60.00
[2023-11-21] MEDS: DELTASONE 3 MG PO (08:05)
[2023-11-21] MEDS: PLAVIX 75 MG PO (08:05)
[2023-11-21] MEDS: VISBIOME 1 CAP PO (08:05)
[2023-11-21] MEDS: ARICEPT 10 MG PO (08:06)
[2023-11-21] MEDS: DESENEX/MITRAZOL/ZEASORB 1 APPLIC TOPICAL (08:06)
[2023-11-21] MEDS: TOPROL XL 25 MG PO (08:06)
[2023-11-21] MEDS: VIBRAMYCIN 100 MG PO (08:06)
[2023-11-21] MEDS: LOW STRENGTH ASPIRIN 81 MG PO (08:06)
[2023-11-21] MEDS: PROTONIX 40 MG PO (08:06)
[2023-11-21 08:07] VITALS: BP 126/69
--- NOTE | 2023-11-21 11:06 | W.PN.CARDCBS ---
Addendum entered and electronically signed by Tonio Amador MD 11/21/23 12:36:
I saw and examined the patient.
The Manager Managed Care's note was reviewed and I agree with the note.
Comment: GEN: No distress, awake, Ox3
HEENT: supple, anicteric, mmm
LUNGS: CTA, no wheezes/rales
CV: Reg, S1/S2, 06/16 syst LSB, no murmur
ABD: soft, BS+, NT/ND
EXT: No edema
NEURO: Gross non-focal
SKIN: No rash
Plan:
Feels much better. Continue antibiotics per primary service.
Will discharge on Lasix 20 mg as needed for weight gain.
Continue aspirin, Plavix, metoprolol, and atorvastatin.
Okay for discharge from cardiology standpoint.
Original Note:
Today's Communication / Plan
-
Replete potassium
Lasix 20 mg as needed for weight gain
Continue aspirin, Plavix, metoprolol and statin for recent coronary stent
Stable from cardiac standpoint for discharge
Outpatient cardiology follow-up has been arranged
Impression / Plan
-
PCP: Nerissa Tse
CDY: None, new to Dr. Ayala
Impression:
Presented 11/17/2023 weakness, diarrhea, chills, poor oral intake
Altered mental status
Acute Hypoxic Respiratory Insufficiency
Sepsis secondary to aspiration Pneumonia
fever
Possible Heart Failure, probnp 8080
Abnormal troponin
Hyponatremia, improved with Samsca
Hypokalemia
Recent inferior STEMI s/p PCI RCA x 2 HARLEY 11/14/23
Residual 60% L main stenosis, medically managed
Hyperlipidemia
PMR
COPD
COVID Pneumonia 06/2023
BPH
mild Dementia
spinal stenosis
Anxiety/Depression
GERD
Schatzki's ring h/o aspiration requiring intubation 2018
former smoker
Osteoporosis
Echo 11/19/2023: EF 55 to 60%, mild basilar inferior hypokinesis. Mild concentric LVH. No significant valve disease
Echo 11/14/2023: EF 53% with mild basal inferior hypokinesis. Stage I DD. Mildly dilated aortic root at sinuses of Valsalva 4.0 cm
Plan:
Concern for aspiration pneumonia improved with antibiotics
Continue with current empiric antibiotics (cefepime) per ID; also on doxycycline new 11/19
proBNP is elevated at 8090
Weight up 3 lbs overnight but overall down 2 pounds compared to prior d/c weight 11/13/2023. Weights are bed scale. Unsure how accurate. Will see if standing weight can be done.
Given dose of IV Lasix 40 mg 11/19
Now on room air
Appears euvolemic - would send home with prn Lasix 20 mg if 3 lbs weight gain overnight or 5 lbs in 1 week. This was reviewed w/ pt and his at bedside
Preserved ejection fraction on echo as noted above.
Hyponatremia improved with Samsca; nephro holding SSRI
Potassium 3.5 would replete
Continue Toprol, DAPT with ASA/Plavix as well as high intensity statin status post SC on 11/14/2023; most likely elevated troponin on admission was continuation of previously declining troponin level
Patient hemodynamically stable with reasonable blood pressure
History of Present Illness 11/18/23:
Briefly, 83-year-old man with recent STEMI who underwent RCA PCI on 11/14/2023. Following discharge he had poor p.o. intake, diarrhea, chills and altered mental status and therefore was brought back to [place] emergency department for evaluation.
Here he has had fever with temperature up to 102.7 and leukocytosis however this may be chronic. Chest x-ray was concerning for right middle lobe pneumonia. He was started on broad-spectrum antibiotics for treatment of possible hospital-acquired
pneumonia Vanco/cefepime admitted to telemetry for further evaluation.
He is somewhat confused this morning at the time of my evaluation. He is not reporting any chest discomfort or shortness of breath to me.
Labs are notable for troponin of 1.2 which is significantly lower than when last checked post STEMI when it was 28.6. Of note proBNP is elevated to 8000.
Progress Note - Network Development Coordinator
Subjective
Date of Service: November 21, 2023
Patient seen and examined. Reports that he is feeling considerably better and is no longer short of breath. Now off oxygen
Objective
Labs:
11/21/23 06:40
11/21/23 06:40
Labs
Hgb 10.1 g/dL (13.0-18.0) L 11/21/23 06:40
Hct 28.8 % (39.0-52.0) L 11/21/23 06:40
Plt Count 367 10^3/uL (130-400) 11/21/23 06:40
Sodium 133 mmol/L (135-145) L 11/21/23 06:40
Potassium 3.5 mmol/L (3.5-5.1) 11/21/23 06:40
BUN 18 mg/dl (9-20) 11/21/23 06:40
Creatinine 0.8 mg/dL (0.7-1.3) 11/21/23 06:40
Glucose 104 mg/dl (70-99) H 11/21/23 06:40
Troponins
11/18/23 11/18/23 11/18/23
10:37 16:34 22:34
Troponin I 1.210 H* 0.968 H* 1.050 H*
11/19/23
04:20
Troponin I 0.937 H*
Vital Signs and I&O:
Vital Signs
Temp Pulse Resp BP Pulse Ox
98.8 F 68 18 126/69 98
11/21/23 08:07 11/21/23 08:07 11/21/23 08:07 11/21/23 08:07 11/21/23 08:07
Vital Signs
Temp Pulse Resp BP Pulse Ox
98.8 F 68 18 126/69 98
11/21/23 08:07 11/21/23 08:07 11/21/23 08:07 11/21/23 08:07 11/21/23 08:07
Intake & Output
11/19/23 11/20/23 11/21/23 11/22/23
06:59 06:59 06:59 06:59
Intake Total 1680 / 1680 2040 / 2040 840 / 840
Output Total 2200 / 2200 650 / 650 1800 / 1800
Balance -520 / -520 1390 / 1390 -960 / -960
Physical Exam
Physical Exam
GEN: No distress, awake, Ox3
HEENT: supple, anicteric, mmm
LUNGS: Decreased BS at right base otherwise CTA, no wheezes/rales; wearing oxygen
CV: Reg, S1/S2, no murmur rub or gallop
ABD: soft, BS+, NT/ND
EXT: No edema, clubbing or cyanosis
NEURO: Gross non-focal
SKIN: No rash, warm, dry
[2023-11-21 11:31] VITALS: BMI 19.1
[2023-11-21 11:51] VITALS: BP 111/61
--- NOTE | 2023-11-21 12:00 | CM ---
Addendum entered by Aleshia Keith 11/21/23 12:17:
Await ambulance transport time.
Ambulance transport forms on chart.
Original Note:
Patient cleared for d/c today.
Bed available at [facility]
Spouse agreeable to [facility].
Plan: PR today
[facility]
[2023-11-21] MEDS: KCL 20 MEQ PO (12:14)
--- NOTE | 2023-11-21 12:35 | W.PN.ID1 ---
Date of Service
Date of Service: November 21, 2023
Today's Communication
Transition to oral cefdinir for an additional 5 days.
Assessment / Plan
Fever
Leukocytosis
Right lower lobe infiltrate/PNA
- suspected aspiration
Generalized weakness
Polymyalgia rheumatica
Lumbar spinal stenosis
COPD
Diverticular disease
Mild dementia
GERD
Recommendation:
Patient overall appears improved.
Transition to cefdinir 300 mg p.o. twice daily for an additional 5 days.
����������������������������������������������������������
Chief Complaint
-: Pneumonia
Subjective / Review of Systems
Review of Systems: No Fever, No Chills and No Cough
Vital Signs / Physical Exam
Vital Signs
Vital Signs
Temp Pulse Resp BP Pulse Ox
98.0 F 66 21 111/61 95
11/21/23 11:51 11/21/23 11:51 11/21/23 11:51 11/21/23 11:51 11/21/23 11:51
Physical Exam
Constitutional: No Acute Distress, Comfortable, Chronically Ill and Non-toxic
Eyes: No Conjunctival Hemorrhage and Sclera Anicteric
Cardiovascular: S1/S2; Negative S3/S4
Pulmonary: Coarse and Non Labored; Negative Wheezes or Rales
Gastrointestinal: Soft, Non Tender, Non Distended and No Rebound
Skin: Warm and Dry; Negative Rash or Jaundice
Neurological: Awake and Alert
Psychological: Calm
Objective Data
Lab Data
Lab Results
11/21/23 06:40
11/21/23 06:40
Estimated Creat Clear 64 ml/min 11/21/23 06:40
Lactic Acid Cancelled 11/17/23 19:45
Total Bilirubin 0.7 mg/dl (0.2-1.3) 11/17/23 15:56
AST 54 U/L (17-59) 11/17/23 15:56
ALT 29 U/L (0-50) 11/17/23 15:56
Alkaline Phosphatase 67 U/L (38-126) 11/17/23 15:56
Most recent labs reviewed.
Micro Results:
11/18/23 22:34 Blood Culture - Preliminary
Blood/Venous No Growth in 48 hours- Final report to follow
11/17/23 18:06 Blood Culture - Preliminary
Blood/Venous No Growth in 72 hours- Final report to follow
11/18/23 17:24 Blood Culture - Preliminary
Blood/Venous No Growth in 48 hours- Final report to follow
11/17/23 15:56 Blood Culture - Preliminary
Blood/Venous No Growth in 72 hours- Final report to follow
11/17/23 22:14 Nasal Screen MRSA (PCR) - Final
Nose MRSA not detected - performed by PCR methodology.
11/17/23 23:08 C. difficile GDH Antigen & Toxins - Final
Feces/Stool Negative for toxigenic C.difficile
11/17/23 23:08 Legionella Urinary Antigen - Final
Urine Negative for Legionella pneumophila Serogroup 1 antigen.
A negative result does not rule out the possiblity of
Legionella infection due to other serogroups or species of
Legionella. Clinical correlation is recommended.
11/17/23 16:00 Influenza Types A & B (MELISSA) - Final
Nasal Swab Negative for Influenza A & B, NAAT
Negative results must be combined with clinical observations
and patient history.
Nucleic Acid Amplification test (NAAT)performed on the
[employer] platform.
Imaging:
11/17/23 CXR (2 view): No acute mediastinal abnormalities. Interstitial confluent alveolar parenchymal airspace disease in the right perihilar region and posterior right medial right lower lobe consistent with pneumonia. Lungs are otherwise clear.
--- NOTE | 2023-11-21 14:50 | W.PN.NEPH.PH ---
Today's Communication / Plan
-
ok for d/c with FR
Assessment/Plan
-
IMP:
HCAP-PNA
Acute Hypoxic Respiratory Insufficiency Secondary to Pneumonia and Possible Heart Failure
Diarrhea
Hyponatremia
non gap met acidosis
Hypokalemia
CAD - CAD s/p recent AK and PCI with stents with RCA 11/12
Hyperlipidemia
PMR
COPD
COVID Pneumonia 06/2023
BPH
mild Dementia
spinal stenosis
Anxiety/Depression
GERD
Schatzki's ring h/o aspiration requiring intubation 2018
former smoker
Osteoporosis
Plan:
Recent d/c after PCI stent for STEMI and returns 11/16 with PNA
Hyponatremia-was normal sodium prior admit
U osmo 555, U na 47 suggest SIADH vs hypervolemia
BNP is high at 8080 with normal cr suggest hypervolemic state
sodium at 133 stable with FR s/p samsca 11/17
cont FR 48 ounces/day
prn lasix for wt gain per cards
on dysphagia diet
BP stable on low dose BB
d/w pt and family
f/u with PCP , bmp in 1-2weeks
-
-
Date of Service: November 21, 2023
CC / HPI / ROS
-
Chief Complaint:
Hyponatremia
History of Present Illness:
sodium at 133 stable
maintained on FR
hemodynamically stable
Review of Systems:
nonoliguric
no reported chest pain or sob
Labs
-
Labs:
WBC 8.5 10^3/uL (4.8-10.8) 11/21/23 06:40
RBC 3.26 10^6/uL (4.70-6.10) L 11/21/23 06:40
Hgb 10.1 g/dL (13.0-18.0) L 11/21/23 06:40
Hct 28.8 % (39.0-52.0) L 11/21/23 06:40
Plt Count 367 10^3/uL (130-400) 11/21/23 06:40
Sodium 133 mmol/L (135-145) L 11/21/23 06:40
Potassium 3.5 mmol/L (3.5-5.1) 11/21/23 06:40
Chloride 101 mmol/L (98-107) 11/21/23 06:40
Carbon Dioxide 24 mmol/L (22-30) 11/21/23 06:40
BUN 18 mg/dl (9-20) 11/21/23 06:40
Creatinine 0.8 mg/dL (0.7-1.3) 11/21/23 06:40
eGFR > 60.00 11/21/23 06:40
Glucose 104 mg/dl (70-99) H 11/21/23 06:40
Calcium 8.3 mg/dl (8.4-10.2) L 11/21/23 06:40
Hpd-Y-Wohfxtllgfs Pept 8090 pg/ml 11/18/23 10:37
Albumin 3.4 g/dl (3.5-5.0) L 11/17/23 15:56
Physical Exam
-
Vital Signs:
Vital Signs
Temp Pulse Resp BP Pulse Ox
98.0 F 66 21 111/61 95
11/21/23 11:51 11/21/23 11:51 11/21/23 11:51 11/21/23 11:51 11/21/23 11:51
Cardiovascular:: Regular rate and rhythm
Respiratory:: Bilateral: CTA (decreased)
Lung Excursion:: Normal
Abdomen:: Nontender and Soft
Extremity Edema:: None: Bilateral:
Mathias Catheter: No
--- NOTE | 2023-11-21 17:04 | W.PN.HOSP.TC ---
Today's Communication/Plan
-
d/c snf rehab
Assessment / Plan
Assessment / Plan
1. Sepsis - POA
Right lower lobe Pneumonia - presumed aspiration vs hospital acquired
h/o of dysphagia/aspiration pneumonia
-Chest x-ray at admission showing right lower lobe infiltrate
-Patient has a history of dysphagia and possibility of aspiration component.
-UA has been clear. Patient had some loose stools and was checked for C. difficile and negative.
-Blood cs negative till date.
-Unable to get any good sputum sample, discharge order
-Clear speech therapy evaluation/VSE and on IDDSI 6 diet
-Currently on cefepime/IRAD to penicillin. Added doxycycline to regimen for covering atypical.
2. Hyponatremia
-Presumed hypovolemic versus euvolemic component
-Escitalopram on hold
-Got dose of tolvaptan 7.5 mg, sodium back to normal.
3. Acute hypoxic respiratory failure
Chronic diastolic HF
-patient is on 4L o2 through NC
-Ef 53%, stage I diastolic dysfunction on last TTE
-Patient getting dose of IV Lasix today
-Wean off oxygen as possible
3. Dementia with behavioral problems
-Likely related to sepsis/hyponatremia
-Currently patient pleasant. continue supportive care.
4. Acute diarrhea
-c-diff neg. will check further studies if diarrhea persists
-possible GI dysbiosis with antibiotic use
5. CAD
S/p recent inferior STEMI and PCI with stents with RCA
- continue aspirin and plavix
- continue high-intensity statin
- Hold beta sunday 12.5 bid given marginal blood pressure
6. PMR
- continue prednisone 3mg daily
DVT PPX - Lovenox sq
Code status - Full code
More than 30 minutes spent in discharge including
Final examination of the patient
Summarizing hospital stay
Instructions for continuing care to all relevant caregivers
Preparation of discharge records, prescriptions, and referral forms
Total time spent (in minutes): 38 mins
Anticipated Discharge: Today
Subjective/Interval History
-
Date of Service: November 21, 2023
no issues overnight
off of o2
Objective Data
-
Labs:
Laboratory Results
11/21/23
06:40
WBC 8.5
Hgb 10.1 L
Hct 28.8 L
Plt Count 367
Sodium 133 L
Potassium 3.5
Chloride 101
Carbon Dioxide 24
BUN 18
Creatinine 0.8
Glucose 104 H
Calcium 8.3 L
Vital Signs:
Vital Signs
Temp Pulse Resp BP Pulse Ox
98.0 F 66 21 111/61 95
11/21/23 11:51 11/21/23 11:51 11/21/23 11:51 11/21/23 11:51 11/21/23 11:51
I&O
11/20/23 11/21/23 11/22/23
06:59 06:59 06:59
Intake Total 2040 / 2040 840 / 840
Output Total 650 / 650 1800 / 1800
Balance 1390 / 1390 -960 / -960
Review of Systems
-
Respiratory: Reports No Symptoms
Cardiac: Reports No Symptoms
Abdomen/GI: Reports No Symptoms
Physical Exam
-
General: Appears Chronically Ill
HEENT: Moist Mucous Membranes and Oxygen (4L NC)
Respiratory: Clear to Auscultation
Cardiac: Regular Rhythm and S1/S2; Negative Murmur
GI: Soft, Nontender and Nondistended
Musculoskeletal: No Edema
Neuro: Awake, Alert and No Motor Deficits
Psych: Calm
--- NOTE | 2023-11-21 18:24 | W.DCSUMMARY ---
Discharge Summary
Discharge Data
Date of Admission: 11/17/23
Date of Discharge: 11/21/23
-
Pending Results: No
Hospital Course
Discharging Physician : Dr Giorgio Carrillo
Disposition : To home
Primary care physician : Unknown
Principal Discharge diagnosis :
Sepsis from right lower lobe pneumonia, presumed aspiration
Acute hypoxic respiratory failure
Hyponatremia
Chronic diastolic heart failure
Diarrhea
Chronic Discharge diagnosis :
Dementia with behavioral problems
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
Polymyalgia rheumatica
Chronic obstructive pulmonary disease
History of COVID-pneumonia
Benign prostatic hyperplasia
History of Schatzki's ring
Former smoker
Hospital Course :
Patient is 83-year-old male with above-mentioned past medical history came to ER for having new onset of shortness of breath fever and lethargy.
Evaluation in ER showing patient having new right lower lobe pneumonia on chest x-ray. Patient was also found to be septic. There was concern of possible aspiration pneumonia,. Speech evaluation VSE was done and patient was cleared for IDDSI 6
diet. Patient initially was on cefepime although continued to have fever, regimen was broadened with addition of doxycycline. No other potential infection source found this admit.
Patient also had hypoxic respiratory failure with known history of diastolic heart failure this was felt to be related to heart failure and pneumonia related. Post improvement of pneumonia patient was provided IV Lasix as well for volume
optimization. Patient was able to be weaned off of oxygen before discharge.
Patient have new hyponatremia and with some reported diarrhea felt to be hypovolemic versus euvolemic due to underlying heart failure. Patient got dose of Samsca by nephrology and resume hyponatremia. Escitalopram/SSRI were held.
[facility] post medical stabilization.
Important imaging findings :
None
Procedure findings :
None
Discharge Plan
-
Patient Disposition: Detention/SNF
Discharge Diagnosis/Procedures: Right sided pneumonia, sepsis, hypoxia
Condition: Fair
Diet: Other diet
Additional Diets: IDDSI 5 and Thin liquid
Activity: As tolerated
Driving Restrictions: No driving
Bathing Restrictions: OK to Shower
Referrals:
Erin Mcguier PA-C [Specified Professional Personl] - 12/10/23 3:40 pm (You have cardiology follow-up with Erin Mcguire PA-C on December 09 at 3:40 PM in [address] in the [place] which is located behind [facility]. If you are unable to make this
appointment please call [phone] to reschedule)
Rigoberto Richards MD [Family Provider] - in one week
Prescriptions:
New
doxycycline hyclate 100 mg Capsule
100 mg PO Q12 Qty: 6 0RF
Rx Instructions:
Last dose 11/23 eveing
furosemide [Lasix] 20 mg tablet
20 mg PO DAILY PRN (Reason: Weight gain) Qty: 30 0RF
Rx Instructions:
For weight gain 3 lb in 24 hours or 5lb weight gain in 1 week
Continued
donepezil 10 MG tablet
10 mg PO DAILY
prednisone 1 MG tablet
3 mg PO DAILY
clopidogrel 75 mg Tablet
75 mg PO DAILY Qty: 30 11RF
pantoprazole 40 mg Tablet,Delayed Release (Dr/Ec)
40 mg PO DAILY Qty: 30 11RF
atorvastatin 80 mg Tablet
80 mg PO QPM Qty: 30 11RF
aspirin 81 mg tablet,chewable
81 mg PO DAILY Qty: 30 11RF
Changed
metoprolol tartrate 25 mg Tablet
25 mg PO BID Qty: 60 11RF
Discontinued
escitalopram oxalate 20 mg tablet
20 mg PO DAILY
Discharge Orders:
Discharge Patient (As Directed); Ordered 11/21/23
Ordered By: Giorgio Carrillo
Discharge Date and Time
Discharge Date/Time: 11/21/23 15:25
Print Language: HONDURAN
== END 2023-11-21 15:25 | DRG 871 ==
LOC: 4 WEST ACU 18:59
PROVIDERS: Hospitalist; Nurse Practitioner Gerontology; ADMITTING PHYSICIAN Internal Medicine; ATTENDING PHYSICIAN Hospitalist; CONSULT PHYSICIAN Internal Medicine; CONSULT PHYSICIAN Internal Medicine Cardiovascular Disease; EMERGENCY PHYSICIAN Emergency Medicine; FAMILY PHYSICIAN Internal Medicine; OTHER PHYSICIAN Internal Medicine Infectious Disease; REFERRING PHYSICIAN Internal Medicine Interventional Cardiology
DX: A41.9 Sepsis, unspecified organism (principal); I21.19 ST elevation (STEMI) myocardial infarction involving other coronary artery of inferior wall; J69.0 Pneumonitis due to inhalation of food and vomit; J96.01 Acute respiratory failure with hypoxia; E87.1 Hypo-osmolality and hyponatremia; I50.32 Chronic diastolic (congestive) heart failure; F03.A3 Unspecified dementia, mild, with mood disturbance; F03.A4 Unspecified dementia, mild, with anxiety; F03.A18 Unspecified dementia, mild, with other behavioral disturbance; E87.20 Acidosis, unspecified; I11.0 Hypertensive heart disease with heart failure; R19.7 Diarrhea, unspecified; F32.A Depression, unspecified; M35.3 Polymyalgia rheumatica; I25.10 Atherosclerotic heart disease of native coronary artery without angina pectoris; R13.10 Dysphagia, unspecified; E87.6 Hypokalemia; E86.1 Hypovolemia; E78.00 Pure hypercholesterolemia, unspecified; K21.9 Gastro-esophageal reflux disease without esophagitis; K22.2 Esophageal obstruction; N40.0 Benign prostatic hyperplasia without lower urinary tract symptoms; M81.0 Age-related osteoporosis without current pathological fracture; M48.061 Spinal stenosis, lumbar region without neurogenic claudication; F17.200 Nicotine dependence, unspecified, uncomplicated; Z11.52 Encounter for screening for COVID-19; Z86.16 Personal history of COVID-19; Z79.52 Long term (current) use of systemic steroids; Z95.5 Presence of coronary angioplasty implant and graft; Z79.82 Long term (current) use of aspirin; Z79.02 Long term (current) use of antithrombotics/antiplatelets
CPT/HCPCS: 93308; 71046; 74230; 80048; 80053; 80202; 81003; 81015; 82533; 82550; 83605; 83735; 83880; 83935; 84300; 84484; 85025; 85027; 87040; 87324; 87449; 87502; 87641; 87811; 92526; 92610; 92611; 93005; 94640; 96361; 96374; 97162; 97166; 97530; 99285

== ENCOUNTER → 2023-11-23 10:32 | Outpatient (REF) | payer OTHER, MEDICARE, SELFPAY ==
[2023-11-23 12:20] LABS: Hematocrit 31.2 % (39.0-52.0); Hemoglobin 10.4 g/dL (13.0-18.0); Mean Corp Hgb Conc. 33.3 g/dL (33.0-37.0); Mean Corpuscular Hgb 30.6 pg (27.0-31.0); Mean Corpuscular Volume 91.8 fL (80.0-94.0); Mean Platelet Volume 10.1 fL (7.4-10.4); Platelet Count 522 10^3/uL (130-400); Red Cell Dist. Width 13.2 % (11.5-14.5); White Blood Cell Count 10.4 10^3/uL (4.8-10.8)
[2023-11-23 12:47] LABS: Blood Urea Nitrogen 21 mg/dl (9-20); Calcium 8.8 mg/dl (8.4-10.2); Carbon Dioxide 21 mmol/L (22-30); Chloride 105 mmol/L (98-107); Glucose 89 mg/dl (70-99); Potassium 4.1 mmol/L (3.5-5.1); Sodium 136 mmol/L (135-145); eGFR > 60.00
== END ==
LOC: OLABP 10:32
PROVIDERS: ATTENDING PHYSICIAN Family Medicine
DX: A41.9 Sepsis, unspecified organism (principal); E87.1 Hypo-osmolality and hyponatremia; M48.00 Spinal stenosis, site unspecified
CPT/HCPCS: 36415; 80048; 85027

== ENCOUNTER 2023-12-21 12:40 | Outpatient (RCR) | payer MEDICARE, SELFPAY | END 2023-12-21 23:59 | disposition home or self-care (01) | LOC: CRHB 12:40 | PROVIDERS: ATTENDING PHYSICIAN Internal Medicine Interventional Cardiology | DX: Z95.5 Presence of coronary angioplasty implant and graft (principal); I25.10 Atherosclerotic heart disease of native coronary artery without angina pectoris | CPT/HCPCS: G0422; G0423 ==

== ENCOUNTER 2024-01-31 06:31 | Outpatient (RCR) | payer MEDICARE, SELFPAY | END 2024-01-31 23:59 | disposition home or self-care (01) | LOC: RST 06:31 | PROVIDERS: ATTENDING PHYSICIAN Internal Medicine | DX: R13.13 Dysphagia, pharyngeal phase (principal); F03.A18 Unspecified dementia, mild, with other behavioral disturbance | CPT/HCPCS: 92610 ==

== ENCOUNTER → 2024-02-12 09:38 | Outpatient (REF) | payer MEDICARE, SELFPAY | LOC: RST 09:38 | PROVIDERS: ATTENDING PHYSICIAN Internal Medicine | DX: R13.10 Dysphagia, unspecified (principal) | CPT/HCPCS: 74230; 92611 ==

== ENCOUNTER 2024-02-28 14:00 | Outpatient (RCR) | payer MEDICARE, SELFPAY | END 2024-02-28 23:59 | disposition home or self-care (01) | LOC: RST 14:00 | PROVIDERS: ATTENDING PHYSICIAN Internal Medicine | DX: R13.13 Dysphagia, pharyngeal phase (principal); F03.A18 Unspecified dementia, mild, with other behavioral disturbance | CPT/HCPCS: 92526 ==

== ENCOUNTER → 2024-03-05 09:53 | Outpatient (REF) | payer MEDICARE, SELFPAY ==
[2024-03-05 11:46] LABS: ALT (SGPT) 26 U/L (0-50); AST (SGOT) 24 U/L (17-59); Albumin 4.2 g/dl (3.5-5.0); Alkaline Phosphatase 90 U/L (38-126); Blood Urea Nitrogen 16 mg/dl (9-20); Calcium 9.7 mg/dl (8.4-10.2); Carbon Dioxide 25 mmol/L (22-30); Chloride 101 mmol/L (98-107); Glucose 76 mg/dl (70-99); HDL Cholesterol 44 mg/dl; LDL Cholesterol, Calculated 58 mg/dl; Potassium 4.2 mmol/L (3.5-5.1); Sodium 140 mmol/L (135-145); Total Bilirubin 0.8 mg/dl (0.2-1.3); Total Cholesterol 114 mg/dl (50-199); Total Protein 6.4 g/dl (6.3-8.2); Triglyceride 60 mg/dl (10-149); Very Low Density Lipoprotein 12 mg/dl (0-30); eGFR > 60.00
== END ==
LOC: REG 09:53
PROVIDERS: ATTENDING PHYSICIAN Physician Assistant Medical; FAMILY PHYSICIAN Internal Medicine
DX: I25.10 Atherosclerotic heart disease of native coronary artery without angina pectoris (principal); E78.5 Hyperlipidemia, unspecified
CPT/HCPCS: 36415; 80053; 80061

== ENCOUNTER → 2024-03-17 14:46 | Outpatient (REF) | payer MEDICARE, SELFPAY | LOC: RAD 14:46 | PROVIDERS: ATTENDING PHYSICIAN Hospitalist; FAMILY PHYSICIAN Internal Medicine | DX: M25.551 Pain in right hip (principal) | CPT/HCPCS: 73502 ==

== ENCOUNTER 2024-03-19 13:27 | Emergency (ER) | payer MEDICARE, SELFPAY ==
[2024-03-19 13:30] VITALS: BP 123/58
--- NOTE | 2024-03-19 15:18 | ED.GENMED ---
History of Present Illness
<Milagros Lynn PA-C - Last Filed: 03/19/24 18:42>
General
Chief Complaint: Bowel Problem
Source: patient
Time Seen by Provider: 03/19/24 14:57
History of Present Illness
History of Present Illness:
84yoM with a history of coronary artery disease, PMR, hyperlipidemia, COPD, and dementia presenting with his for evaluation of constipation. Patient has not had a bowel movement for the past several days. gave him Dulcolax, Miralax, and
prune juice yesterday without improvement. She also administered a fleets enema without success. Patient reports rectal discomfort and states it feels like there is a 'brick up there.' believes he has a fecal impaction. He denies any abdominal
pain, vomiting, urinary retention.
Past History
<Milagros Lynn PA-C - Last Filed: 03/19/24 18:42>
Past History
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
dysphagia/Schatzki's ring) and Other (Diverticulitis, )
ED Past Surgical History: Appendectomy, Bowel resection ( Colon resection for diverticulitis with colostomy and then reversal), Orthopedic (Back surgery for spinal stenosis, Knee surgery right, Left hip pin and screws) and Tonsilectomy
Social History
Tobacco: Former smoker
Alcohol: Occasional
Drug: None
Personal:
Living: with family
Employment: Employed
Family History
Family History: Negative Early CAD
Phy Exam
<Milagros Lynn PA-C - Last Filed: 03/19/24 18:42>
General Physical Exam
General Presentation: well appearing and no apparent distress
General age: appears stated age
General Skin: warm and dry
General Habitus: normal
General Mental: alert
ENT Exam
ENT Exam: normocephalic
Pulmonary Exam
Pulmonary Exam: no respiratory distress
Gastrointestinal Exam
Gastrointestinal Exam: non tender, soft and non distended
Rectal Exam: other (Hard stool on rectal exam. Stool brown.)
Skin Exam
Skin Exam: normal color and warm/dry
Psychiatric Exam
Psychiatric Exam: normal mood/affect
Course
<Milagros Lynn PA-C - Last Filed: 03/19/24 18:42>
Orders/Labs/Results
Orders:
Orders
03/19/24 15:16
Enema- Treatment ONCE
Type: Milk of Molasses
03/19/24 16:48
Lidocaine 2% [Lidocaine Uro-Jet 2%] 1 syringe TOPICAL NOW STA
03/19/24 16:49
Lidocaine 2% [Lidocaine Uro-Jet 2%] 1 syringe .ROUTE .[facility]-MED [facility]
Vital Signs
Initial and Last Documented VS:
Initial Vital Signs
Temp Pulse Resp BP Pulse Ox
97.9 F 69 20 123/58 98
03/19/24 13:30 03/19/24 13:30 03/19/24 13:30 03/19/24 13:30 03/19/24 13:30
Last Documented Vital Signs
Temp Pulse Resp BP Pulse Ox
97.9 F 69 20 124/63 98
03/19/24 13:30 03/19/24 17:51 03/19/24 17:51 03/19/24 17:51 03/19/24 17:51
<Moise Almanzar PA-C - Last Filed: 03/19/24 18:35>
Orders/Labs/Results
Orders:
Orders
03/19/24 15:16
Enema- Treatment ONCE
Type: Milk of Molasses
03/19/24 16:48
Lidocaine 2% [Lidocaine Uro-Jet 2%] 1 syringe TOPICAL NOW STA
03/19/24 16:49
Lidocaine 2% [Lidocaine Uro-Jet 2%] 1 syringe .ROUTE .[facility]
Vital Signs
Initial and Last Documented VS:
Initial Vital Signs
Temp Pulse Resp BP Pulse Ox
97.9 F 69 20 123/58 98
03/19/24 13:30 03/19/24 13:30 03/19/24 13:30 03/19/24 13:30 03/19/24 13:30
Last Documented Vital Signs
Temp Pulse Resp BP Pulse Ox
97.9 F 69 20 124/63 98
03/19/24 13:30 03/19/24 17:51 03/19/24 17:51 03/19/24 17:51 03/19/24 17:51
<Milagros Lynn PA-C - Last Filed: 03/19/24 18:42>
MDM/Problems Addressed
Differential Diagnosis Includes:
84yoM here with constipation x several days. No relief with laxatives. C/o rectal discomfort. No abdominal pain, vomiting, urinary retention. VSS. He is well appearing in no distress. Hard stool on rectal exam. Abdominal exam is benign. Differential
diagnosis includes but is not limited to: fecal impaction, constipation, doubt acute surgical process/bowel obstruction
Initial ED plan: Milk of molasses enema ordered.
<Moise Almanzar PA-C - Last Filed: 03/19/24 18:35>
*Critical Care Note
Total Time (30-74mins, 75-104mins- exclusive of procedures): Not Applicable
<Moise Almanzar PA-C - Last Filed: 03/19/24 18:35>
Update Note
Update Note:
Received care of patient upon signout. Patient was given an enema and was disimpacted and is now feeling much better. His rectal spasms have improved. He has a benign abdominal exam upon reassessment. He expresses his desire to go home. Stable
for discharge
ED Attending Note
<Milagros Lynn PA-C - Last Filed: 03/19/24 18:42>
-
Portions of this chart may have been created with voice recognition software.� Occasional wrong word or��sound alike� substitutions may have occurred due to the inherent limitations of voice recognition software.
Discharge Plan
Departure
Patient Disposition: Home (Routine Discharge)
Date of Disposition: 03/19/24
Time of Disposition: 18:34
Patient with high blood pressure during this ER visit?: No
Discharge Problem:
Constipation
Instructions: Constipation, Adult (DC)
Prescriptions:
No Action
donepezil 10 MG tablet
10 mg PO DAILY
prednisone 1 MG tablet
3 mg PO DAILY
clopidogrel 75 mg Tablet
75 mg PO DAILY Qty: 30 11RF
pantoprazole 40 mg Tablet,Delayed Release (Dr/Ec)
40 mg PO DAILY Qty: 30 11RF
atorvastatin 80 mg Tablet
80 mg PO QPM Qty: 30 11RF
aspirin 81 mg tablet,chewable
81 mg PO DAILY Qty: 30 11RF
doxycycline hyclate 100 mg Capsule
100 mg PO Q12 Qty: 6 0RF
Rx Instructions:
Last dose 11/23 eveing
metoprolol tartrate 25 mg Tablet
25 mg PO BID Qty: 60 11RF
furosemide [Lasix] 20 mg tablet
20 mg PO DAILY PRN (Reason: Weight gain) Qty: 30 0RF
Rx Instructions:
For weight gain 3 lb in 24 hours or 5lb weight gain in 1 week
Referrals:
UNKNOWN - PT DOES,NOT KNOW [Unknown Provider] -
Activity Restrictions/Additional Instructions:
Consider the use of MiraLAX for stool softening. Return here if worse otherwise follow-up with your family doctor
Discharge Date and Time
Print Language: GREENLANDIC
[2024-03-19] MEDS: LIDOCAINE URO-JET 2% 1 SYRINGE TOPICAL (16:45)
[2024-03-19 17:51] VITALS: BP 124/63
== END 2024-03-19 19:23 | disposition home or self-care (01) ==
LOC: EMR 13:27
PROVIDERS: EMERGENCY PHYSICIAN Emergency Medicine; FAMILY PHYSICIAN Internal Medicine
DX: K59.00 Constipation, unspecified (principal); K59.4 Anal spasm; I25.10 Atherosclerotic heart disease of native coronary artery without angina pectoris; J44.9 Chronic obstructive pulmonary disease, unspecified; F03.90 Unspecified dementia, unspecified severity, without behavioral disturbance, psychotic disturbance, mood disturbance, and anxiety; M35.3 Polymyalgia rheumatica; E78.00 Pure hypercholesterolemia, unspecified; K21.9 Gastro-esophageal reflux disease without esophagitis; N40.0 Benign prostatic hyperplasia without lower urinary tract symptoms; M48.00 Spinal stenosis, site unspecified; K22.2 Esophageal obstruction; F41.9 Anxiety disorder, unspecified; K57.92 Diverticulitis of intestine, part unspecified, without perforation or abscess without bleeding; Z87.01 Personal history of pneumonia (recurrent); Z87.891 Personal history of nicotine dependence; Z79.52 Long term (current) use of systemic steroids; Z98.0 Intestinal bypass and anastomosis status; Z88.5 Allergy status to narcotic agent; Z88.0 Allergy status to penicillin
CPT/HCPCS: 99283

== ENCOUNTER 2024-07-10 10:56 | Emergency (ER) | payer MEDICARE, SELFPAY ==
[2024-07-10 10:58] VITALS: BP 102/47
--- NOTE | 2024-07-10 11:34 | ED.GENMED ---
History of Present Illness
<Yesy Israel PA-C - Last Filed: 07/10/24 21:32>
General
Chief Complaint: Musculo-Skeletal Complaint
Source: patient
Exam Limitations: none
Time Seen by Provider: 07/10/24 11:33
Nursing documentation reviewed up to this point in time: agreed with
History of Present Illness
History of Present Illness:
This is a 84-year-old male with a past medical history of coronary artery disease, hyperlipidemia, dementia, GERD, polymyalgia rheumatica, osteoarthritis who presents emergency department today with concerns of generalized weakness as well as right
knee pain. Patient present with who reports that ever since patient's heart attack around 6 months ago, patient has been steadily becoming more weak, eating less, having trouble swallowing, and loosing weight. Contrary to triage note, patient
did not have a fall and started to have atraumatic knee pain around 2 weeks ago. Since then, he has not been able to ambulate and has been spending time in bed. He used to use a walker or cane and now he can barely bare weight on the right knee. He
was supposed to have an appointment with his activity assistant to have his right knee arthrocentesis, as well as a steroid injection, however reports that due to his ambulatory dysfunction, he was not able to go to this appointment and was not
able to go to his pain management appointment either. Patient takes oxycodone TID daily.
Past History
<Yesy Israel PA-C - Last Filed: 07/10/24 21:32>
Past History
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
dysphagia/Schatzki's ring) and Other (Diverticulitis, )
ED Past Surgical History: Appendectomy, Bowel resection ( Colon resection for diverticulitis with colostomy and then reversal), Orthopedic (Back surgery for spinal stenosis, Knee surgery right, Left hip pin and screws) and Tonsilectomy
Social History
Tobacco: Former smoker
Alcohol: Occasional
Drug: None
Personal:
Living: with family
Employment: Employed
Family History
Family History: Negative Early CAD
Review of Systems
<Yesy Israel PA-C - Last Filed: 07/10/24 21:32>
Review of Systems
All Other Systems: ROS reviewed and negative except as documented in HPI and ROS
Phy Exam
<Yesy Israel PA-C - Last Filed: 07/10/24 21:32>
Physical Exam
Physical Exam:
General: Patient is well appearing and in no acute distress; non-toxic
Skin: Warm and dry, no rashes or lesions
Head: Normocephalic, atraumatic
Eyes: Sclera non-icteric. EOMs intact.
Cardiac: Regular rate and rhythm, no murmurs
Pulm: Normal respiratory effort, no wheezes, rales, or rhonchi
Abdomen: No abdominal tenderness to palpation
Musculoskeletal: Tenderness to palpation noted over the medial right knee with warmth and suprapatellar swelling noted
Neuro: CN II-XII intact, no focal neurologic deficits.
Psychiatric: Appropriate mood and affect.
Course
<Yesy Israel PA-C - Last Filed: 07/10/24 21:32>
Orders/Labs/Results
Orders:
Orders
07/10/24 11:02
CR Knee- Right 4 Or More View* Urgent
Comment:
Reason For Exam: fall, swelling
07/10/24 12:02
Complete Blood Count/With Diff Urgent
Comprehensive Metabolic Panel Urgent
07/10/24 12:15
Pt Eval And Treat Urgent
Activity Level: With Assistance
07/10/24 13:53
CT Lower Ext W/o Iv Cont Rt Urgent
Comment:
Reason For Exam: right knee pain
07/10/24 15:31
Knee Immobilizer Right-Treatme ONCE
Abnormal Lab Results
07/10/24
12:02
RBC 3.78 L 10^6/uL
(4.70-6.10)
Hgb 11.4 L g/dL
(13.0-18.0)
Hct 34.4 L %
(39.0-52.0)
Absolute Lymphs (auto) 1.1 L 10^3/uL
(1.2-3.4)
Absolute Monos (auto) 0.9 H 10^3/uL
(0.1-0.6)
Immature Gran % 0.6 H %
(0-0.5)
Lymphocytes % 15.6 L %
(20.5-51.1)
Monocytes % 12.7 H %
(1.7-9.3)
Sodium 134 L mmol/L
(135-145)
Creatinine 0.6 L mg/dL
(0.7-1.3)
Glucose 100 H mg/dl
(70-99)
Total Protein 5.7 L g/dl
(6.3-8.2)
07/10/24 12:02
07/10/24 12:02
Vital Signs
Initial and Last Documented VS:
Initial Vital Signs
Temp Pulse Resp BP Pulse Ox
98.1 F 57 18 102/47 96
07/10/24 10:58 07/10/24 10:58 07/10/24 10:58 07/10/24 10:58 07/10/24 10:58
Last Documented Vital Signs
Temp Pulse Resp BP Pulse Ox
98.1 F 62 16 112/72 98
07/10/24 10:58 07/10/24 16:08 07/10/24 16:08 07/10/24 16:08 07/10/24 16:08
Azamlt;Hernán PickeringBuffy Mace, DO - Last Filed: 07/10/24 14:05>
Orders/Labs/Results
Orders:
Orders
07/10/24 11:02
CR Knee- Right 4 Or More View* Urgent
Comment:
Reason For Exam: fall, swelling
07/10/24 12:02
Complete Blood Count/With Diff Urgent
Comprehensive Metabolic Panel Urgent
07/10/24 12:15
Pt Eval And Treat Urgent
Activity Level: With Assistance
07/10/24 13:53
CT Lower Ext W/o Iv Cont Rt Urgent
Comment:
Reason For Exam: right knee pain
07/10/24 15:31
Knee Immobilizer Right-Treatme ONCE
Abnormal Lab Results
07/10/24
12:02
RBC 3.78 L 10^6/uL
(4.70-6.10)
Hgb 11.4 L g/dL
(13.0-18.0)
Hct 34.4 L %
(39.0-52.0)
Absolute Lymphs (auto) 1.1 L 10^3/uL
(1.2-3.4)
Absolute Monos (auto) 0.9 H 10^3/uL
(0.1-0.6)
Immature Gran % 0.6 H %
(0-0.5)
Lymphocytes % 15.6 L %
(20.5-51.1)
Monocytes % 12.7 H %
(1.7-9.3)
Sodium 134 L mmol/L
(135-145)
Creatinine 0.6 L mg/dL
(0.7-1.3)
Glucose 100 H mg/dl
(70-99)
Total Protein 5.7 L g/dl
(6.3-8.2)
07/10/24 12:02
07/10/24 12:02
Vital Signs
Initial and Last Documented VS:
Initial Vital Signs
Temp Pulse Resp BP Pulse Ox
98.1 F 57 18 102/47 96
07/10/24 10:58 07/10/24 10:58 07/10/24 10:58 07/10/24 10:58 07/10/24 10:58
Last Documented Vital Signs
Temp Pulse Resp BP Pulse Ox
98.1 F 62 16 112/72 98
07/10/24 10:58 07/10/24 16:08 07/10/24 16:08 07/10/24 16:08 07/10/24 16:08
Procedures
<SHAHID Kendrick Last Filed: 07/10/24 21:32>
Incision/Drainage/Joint Aspiration
right knee:
Anethesia: 1% Lidocaine with Epi
Preparation: cleaned with Betadine
Type of procedure: aspiration
How much fluid was obtained?: number in mls
Fluid description: serosanguinous and bloody
Treatment: bandaid applied
Additional information:
right knee arthrocentesis
suprapatellar approach
100 mls of bloody fluid aspirated
<SHAHID Kendrick Last Filed: 07/10/24 21:32>
MDM/Problems Addressed
Differential Diagnosis Includes:
osteoarthritis, failure to thrive, dementia, hyponatremia,
MDM/Problems Addressed:
84 y/o male with pmh of dementia, CAD, HLP , osteoarthritis, polymyalgia rheumatica, presents to the emergency department today with concerns of generalized weakness and right knee pain. Due to his right knee pain, he has not been able to ambulate
and has been missing appointments. He did have an appointment scheduled with his activity assistant to have his knee joint drained however he was not able to make the appointment due to ambulatory dysfunction. His is concerned for dehydration as
he has been eating less. CBC and CMP shows no acute kidney injury, no signs of dehydration. Does show a low total protein. Knee arthrocentesis performed. His x-ray demonstrated a acute versus old lateral fracture.
CT scan performed reveals that this is an old fracture. Will not send off joint fluid as this is likely traumatic/inflammatory. Patient seen by PT who recommends possible intermediate vs assisting him and remaining on the first floor at
home. Discussed options with . prefers to take patient home and follow up with specialist. Patient placed in knee immobilizer, ambulation does appear slightly improved from prior. Patient stable for discharge.
Chronic conditions affecting care:
dementia, CAD, GERD
<Yesy Israel PA-C - Last Filed: 07/10/24 21:32>
*Pulse Oximetry
Patient hypoxic: no
*Critical Care Note
Total Time (30-74mins, 75-104mins- exclusive of procedures): Not Applicable
Data Reviewed
Review of Other/Old Records Reveals: Records (Reviewed ER physician documentation from 03/19/2024 patient seen for constipation and had enema) and Discharge Summary (Reviewed discharge summary from 11/21/2023 patient seen for sepsis from pneumonia)
Source: patient and records
ED Attending Note
<Yesy Israel PA-C - Last Filed: 07/10/24 21:32>
-
Portions of this chart may have been created with voice recognition software.� Occasional wrong word or��sound alike� substitutions may have occurred due to the inherent limitations of voice recognition software.
<Hernán Mace DO - Last Filed: 07/10/24 14:05>
ED Attending Note
Patient seen and examined by attending physician: Yes
I performed the substantive portion of visit, reviewed & personally made and approve the management plan that is documented in note by myself or TERRY.: Yes
ED Attending Note:
I agree with Yesy's note.
Patient presents for evaluation of right knee pain. Patient was has been having difficulty ambulating. He did have a fall. Unclear if he struck his knee.
Physical exam
Effusion right knee, tender to palpation.
X-ray shows possible tibial plateau fracture old versus new. Arthrocentesis performed by Yesy revealed essentially blood. Will obtain a CT of the knee to determine if this is truly an acute fracture.
Discharge Plan
Departure
Patient Disposition: Home (Routine Discharge)
Date of Disposition: 07/10/24
Time of Disposition: 15:36
Patient with high blood pressure during this ER visit?: No
Condition: Good
Discharge Problem:
Knee pain, right, Effusion of knee
Instructions: Arthrocentesis, Swollen Joints, BLOOD PRESSURE
Prescriptions:
No Action
donepezil 10 MG tablet
10 mg PO DAILY
prednisone 1 MG tablet
3 mg PO DAILY
clopidogrel 75 mg Tablet
75 mg PO DAILY Qty: 30 11RF
pantoprazole 40 mg Tablet,Delayed Release (Dr/Ec)
40 mg PO DAILY Qty: 30 11RF
atorvastatin 80 mg Tablet
80 mg PO QPM Qty: 30 11RF
aspirin 81 mg tablet,chewable
81 mg PO DAILY Qty: 30 11RF
doxycycline hyclate 100 mg Capsule
100 mg PO Q12 Qty: 6 0RF
Rx Instructions:
Last dose 11/23 eveing
metoprolol tartrate 25 mg Tablet
25 mg PO BID Qty: 60 11RF
furosemide [Lasix] 20 mg tablet
20 mg PO DAILY PRN (Reason: Weight gain) Qty: 30 0RF
Rx Instructions:
For weight gain 3 lb in 24 hours or 5lb weight gain in 1 week
Referrals:
Tony Rooney MD [Active] - Call in 1-3 days for appt
Rigoberto Richards MD [Family Provider] -
Activity Restrictions/Additional Instructions:
Please call Dr. Rooney's office for a follow up appointment. Please wear knee immobilizer and please keep knee elevated when sitting.
Please call your activity assistant.
PLEASE RETURN EMERGENCY DEPARTMENT SHOULD YOU DEVELOP THE INABILITY TO AMBULATE, SYNCOPAL EPISODES, HEADACHES FAINTING, CHEST PAIN, SHORTNESS OF BREATH, OR ANY OTHER SIGNS OR SYMPTOMS CONCERNING OR WORRISOME TO YOU
Interventions
Interventions:
*Risk Screen - Suicide Last Done: 07/10/24 10:58
*General Assessment Last Done: 07/10/24 10:58
*Neglect/Abuse Screening Last Done: 07/10/24 10:58
ED- Fall Risk Assessment Last Done: 07/10/24 12:04
*ED COVID-19 Vaccine History Last Done: 07/10/24 10:58
*Nursing Disposition Last Done: 07/10/24 16:25
ED-Musculoskeletal Assessment Last Done: 07/10/24 12:04
Discharge Date and Time
Discharge Date/Time: 07/10/24 16:25
Print Language: URDU
[2024-07-10 12:03] VITALS: BMI 20.7
[2024-07-10 12:22] LABS: % Basophils 0.3 % (0-2); % Eosinophils 0.8 % (0-6); % Immature Granulocytes 0.6 % (0-0.5); % Lymphocytes 15.6 % (20.5-51.1); % Monocytes 12.7 % (1.7-9.3); Absolute Eosinophils 0.1 10^3/uL (0-0.7); Absolute Lymphocytes 1.1 10^3/uL (1.2-3.4); Absolute Monocytes 0.9 10^3/uL (0.1-0.6); Hematocrit 34.4 % (39.0-52.0); Hemoglobin 11.4 g/dL (13.0-18.0); Mean Corp Hgb Conc. 33.1 g/dL (33.0-37.0); Mean Corpuscular Hgb 30.2 pg (27.0-31.0); Mean Platelet Volume 9.8 fL (7.4-10.4); Nucleated Red Blood Cells % 0 % (-); Platelet Count 388 10^3/uL (130-400); Red Blood Cell Count 3.78 10^6/uL (4.70-6.10); Red Cell Dist. Width 12.2 % (11.5-14.5); White Blood Cell Count 7.2 10^3/uL (4.8-10.8)
[2024-07-10 12:37] LABS: ALT (SGPT) 29 U/L (0-50); AST (SGOT) 35 U/L (17-59); Albumin 3.5 g/dl (3.5-5.0); Alkaline Phosphatase 71 U/L (38-126); Blood Urea Nitrogen 14 mg/dl (9-20); Calcium 8.8 mg/dl (8.4-10.2); Carbon Dioxide 28 mmol/L (22-30); Chloride 99 mmol/L (98-107); Estimated Creatinine Clearance 72 ml/min; Glucose 100 mg/dl (70-99); Potassium 4.6 mmol/L (3.5-5.1); Sodium 134 mmol/L (135-145); Total Protein 5.7 g/dl (6.3-8.2); eGFR > 60.00
[2024-07-10 16:08] VITALS: BP 112/72
== END 2024-07-10 16:25 | disposition home or self-care (01) ==
LOC: EMR 10:56
PROVIDERS: Physician Assistant; EMERGENCY PHYSICIAN Emergency Medicine; FAMILY PHYSICIAN Internal Medicine
DX: M25.461 Effusion, right knee (principal); E78.00 Pure hypercholesterolemia, unspecified; F03.90 Unspecified dementia, unspecified severity, without behavioral disturbance, psychotic disturbance, mood disturbance, and anxiety; I25.10 Atherosclerotic heart disease of native coronary artery without angina pectoris; J44.9 Chronic obstructive pulmonary disease, unspecified; K21.9 Gastro-esophageal reflux disease without esophagitis; M35.3 Polymyalgia rheumatica; N40.0 Benign prostatic hyperplasia without lower urinary tract symptoms; Z79.52 Long term (current) use of systemic steroids; Z87.891 Personal history of nicotine dependence; Z90.49 Acquired absence of other specified parts of digestive tract
CPT/HCPCS: 20610; 99284; 73564; 73700; 80053; 85025

== ENCOUNTER → 2024-10-02 09:33 | Outpatient (REF) | payer MEDICARE, SELFPAY ==
[2024-10-02 10:17] LABS: % Basophils 0.2 % (0-2); % Eosinophils 2.5 % (0-6); % Immature Granulocytes 0.5 % (0-0.5); % Neutrophils 63.8 % (42.2-75.2); Absolute Eosinophils 0.2 10^3/uL (0-0.7); Absolute Lymphocytes 1.3 10^3/uL (1.2-3.4); Absolute Monocytes 0.8 10^3/uL (0.1-0.6); Absolute Neutrophils 4.1 10^3/uL (1.4-6.5); Hematocrit 34.8 % (39.0-52.0); Hemoglobin 11.6 g/dL (13.0-18.0); Mean Corp Hgb Conc. 33.3 g/dL (33.0-37.0); Mean Corpuscular Hgb 30.9 pg (27.0-31.0); Mean Corpuscular Volume 92.6 fL (80.0-94.0); Mean Platelet Volume 10.5 fL (7.4-10.4); Nucleated Red Blood Cells % 0 % (-); Platelet Count 224 10^3/uL (130-400); Red Blood Cell Count 3.76 10^6/uL (4.70-6.10); Red Cell Dist. Width 13.9 % (11.5-14.5); White Blood Cell Count 6.3 10^3/uL (4.8-10.8)
[2024-10-02 12:00] LABS: ALT (SGPT) 26 U/L (0-50); AST (SGOT) 21 U/L (17-59); Albumin 3.9 g/dl (3.5-5.0); Alkaline Phosphatase 67 U/L (38-126); Blood Urea Nitrogen 15 mg/dl (9-20); Calcium 9.6 mg/dl (8.4-10.2); Carbon Dioxide 26 mmol/L (22-30); Chloride 107 mmol/L (98-107); Glucose 90 mg/dl (70-99); Potassium 4.2 mmol/L (3.5-5.1); Sodium 142 mmol/L (135-145); Total Bilirubin 0.8 mg/dl (0.2-1.3); Total Cholesterol 109 mg/dl (50-199); Total Protein 5.9 g/dl (6.3-8.2); Triglyceride 74 mg/dl (10-149); Very Low Density Lipoprotein 14 mg/dl (0-30); eGFR > 60.00
[2024-10-02 12:20] LABS: HDL Cholesterol 39 mg/dl; LDL Cholesterol, Calculated 56 mg/dl
[2024-10-02 13:48] LABS: Glycohemoglobin (HgbA1c) 5.3 % (4.0-5.6)
== END ==
LOC: REG 09:33
PROVIDERS: ATTENDING PHYSICIAN Internal Medicine Rheumatology; FAMILY PHYSICIAN Internal Medicine; REFERRING PHYSICIAN Internal Medicine Interventional Cardiology
DX: I21.19 ST elevation (STEMI) myocardial infarction involving other coronary artery of inferior wall (principal); Z95.5 Presence of coronary angioplasty implant and graft; E78.5 Hyperlipidemia, unspecified; R73.09 Other abnormal glucose; M19.90 Unspecified osteoarthritis, unspecified site; Z51.81 Encounter for therapeutic drug level monitoring
CPT/HCPCS: 36415; 80053; 80061; 83036; 84443; 85025

== ENCOUNTER 2025-01-02 07:24 | Inpatient (IN) | payer MEDICARE, SELFPAY ==
[2024-12-30 23:10] VITALS: BP 112/75
[2024-12-30 23:14] VITALS: BP 112/75
[2024-12-31 00:25] VITALS: BP 159/81
[2024-12-31 00:28] VITALS: BMI 21.2
[2024-12-31 00:33] VITALS: BP 159/81
[2024-12-31 00:35] LABS: Hematocrit 37.6 % (39.0-52.0); Hemoglobin 12.6 g/dL (13.0-18.0); Mean Corp Hgb Conc. 33.5 g/dL (33.0-37.0); Mean Corpuscular Volume 94.0 fL (80.0-94.0); Nucleated Red Blood Cells % 0 % (-); Platelet Count 243 10^3/uL (130-400); Red Cell Dist. Width 12.9 % (11.5-14.5)
[2024-12-31 00:41] LABS: ALT (SGPT) 39 U/L (0-50); AST (SGOT) 28 U/L (17-59); Albumin 4.5 g/dl (3.5-5.0); Alkaline Phosphatase 71 U/L (38-126); Blood Urea Nitrogen 20 mg/dl (9-20); Calcium 9.6 mg/dl (8.4-10.2); Carbon Dioxide 28 mmol/L (22-30); Chloride 106 mmol/L (98-107); Estimated Creatinine Clearance 57 ml/min; Glucose 97 mg/dl (70-99); Potassium 4.2 mmol/L (3.5-5.1); Sodium 141 mmol/L (135-145); Total Protein 6.5 g/dl (6.3-8.2); eGFR > 60.00
--- NOTE | 2024-12-31 00:48 | ED.SKININJ ---
HPI-Injury
General
Chief Complaint: Bite
Source: patient and family
Exam Limitations: none
Time Seen by Provider: 12/31/24 00:27
Nursing documentation reviewed up to this point in time: agreed with
History of Present Illness-Injury
Is this injury a work related problem?: No
Is pt an associate of [facility]?: No
Initial Injury comments:
84-year-old male accompanied by family bitten by his own cat who is immunized today, and his left forearm had a fairly rapidly progressive redness warmth with chills, pain, suffers with arthritis, has PMR, uses oxycodone, not on chronic steroids or
immunosuppressive's, no nausea or vomiting,
Past History
Past History
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
dysphagia/Schatzki's ring) and Other (Diverticulitis, )
ED Past Surgical History: Appendectomy, Bowel resection ( Colon resection for diverticulitis with colostomy and then reversal), Orthopedic (Back surgery for spinal stenosis, Knee surgery right, Left hip pin and screws) and Tonsilectomy
Social History
Tobacco: Former smoker
Alcohol: Occasional
Drug: None
Personal:
Living: with family
Employment: Employed
Family History
Family History: Negative Early CAD
Review of Systems
Review of Systems
All Other Systems: Not applicable
Constitutional: Reports fatigue and chills; Denies fever
Musculoskeletal: Reports joint swelling, muscle stiffness and edema
Skin: Reports rash
Hematologic/Lymphatic: Reports bruising
Phy Exam
Physical Exam
Physical Exam:
Physical Exam
General: no apparent distress, not acutely ill
Neck: No jaundice
Heart: s1/s2 regular rate and rhythm, no murmur. equal radial pulses.
Lungs: no acute respiratory distress.
Neuro: alert and oriented. no focal neurological deficits
Skin: no rash
Psychiatric: well kept. interactive and cooperative
Extremities: Left forearm multiple plates in the volar surface with streaking erythema care home up the forearm
Course
Orders/Labs/Results
Orders:
Orders
12/30/24 23:45
Complete Blood Count/With Diff Urgent
Comprehensive Metabolic Panel Urgent
Blood Culture Urgent
STEPHANIE Source: Blood/Venous
Specimen Description:
12/31/24 00:42
Forearm, Left 2 View [CR Forearm - Left 2 View] Urgent
Comment:
Reason For Exam: infecteed cat bite
12/31/24 00:43
Doxycycline Hyclate [Vibramycin] 100 mg 0.9% Sodium Chloride 250 ml [Nss] 250 ml IV NOW
MetroNIDAZOLE 500 MG/100 ML [Flagyl 500 mg] 100 ml IV NOW
Abnormal Lab Results
12/31/24
00:04
WBC 13.0 H 10^3/uL
(4.8-10.8)
RBC 4.00 L 10^6/uL
(4.70-6.10)
Hgb 12.6 L g/dL
(13.0-18.0)
Hct 37.6 L %
(39.0-52.0)
MCH 31.5 H pg
(27.0-31.0)
MPV 10.5 H fL
(7.4-10.4)
Abs Immat Gran (auto) 0.1 H 10^3/uL
(0-0.05)
Absolute Neuts (auto) 10.3 H 10^3/uL
(1.4-6.5)
Absolute Monos (auto) 1.3 H 10^3/uL
(0.1-0.6)
Neutrophils % 79.4 H %
(42.2-75.2)
Lymphocytes % 9.5 L %
(20.5-51.1)
Monocytes % 9.6 H %
(1.7-9.3)
12/31/24 00:04
12/31/24 00:04
Vital Signs
Initial and Last Documented VS:
Initial Vital Signs
Temp Pulse BP Pulse Ox
98.4 F 78 112/75 100
12/30/24 23:10 12/30/24 23:10 12/30/24 23:10 12/30/24 23:10
Last Documented Vital Signs
Temp Pulse Resp BP Pulse Ox
98.4 F 76 18 159/81 99
12/30/24 23:14 12/31/24 00:33 12/31/24 00:33 12/31/24 00:33 12/31/24 00:51
MDM/Problems Addressed
Differential Diagnosis Includes:
Cat bite cellulitis erythema progressive lymphangitic spread possible foreign body from teeth, occult fracture Carol
MDM/Problems Addressed:
Rapidly progressive Cat bite cellulitis
Chronic conditions affecting care:
Penicillin allergy
Acute Exacerbation and/or Progression of Chronic Illness:
Penicillin allergy
*Radiology
Radiology exam reviewed: preliminary read by ED provider
*Pulse Oximetry
SaO2: 99
Oxygen Mode of Delivery: Room air
Patient hypoxic: no
*Critical Care Note
Total Time (30-74mins, 75-104mins- exclusive of procedures): Not Applicable
Update Note
Update Note:
1 AM, up-to-date reviewed, antibiotics ordered, will check x-ray, blood culture, low threshold to admit due to rapid progressive nature of the infection
ED Attending Note
-
Portions of this chart may have been created with voice recognition software.� Occasional wrong word or��sound alike� substitutions may have occurred due to the inherent limitations of voice recognition software.
Discharge Plan
Departure
Patient Disposition: Admit
Date of Disposition: 12/31/24
Time of Disposition: 01:27
Admit to: Med/Surg
Presentation/result/management discussed w/ accepting MD/DO: Hospitalist
Patient with high blood pressure during this ER visit?: No
Condition: Fair
Covid-19: Not Applicable
Discharge Problem:
Pasteurella cellulitis due to cat bite
Prescriptions:
No Action
donepezil 10 MG tablet
10 mg PO DAILY
prednisone 1 MG tablet
3 mg PO DAILY
clopidogrel 75 mg Tablet
75 mg PO DAILY Qty: 30 11RF
pantoprazole 40 mg Tablet,Delayed Release (Dr/Ec)
40 mg PO DAILY Qty: 30 11RF
atorvastatin 80 mg Tablet
80 mg PO QPM Qty: 30 11RF
aspirin 81 mg tablet,chewable
81 mg PO DAILY Qty: 30 11RF
doxycycline hyclate 100 mg Capsule
100 mg PO Q12 Qty: 6 0RF
Rx Instructions:
Last dose 11/23 eveing
metoprolol tartrate 25 mg Tablet
25 mg PO BID Qty: 60 11RF
furosemide [Lasix] 20 mg tablet
20 mg PO DAILY PRN (Reason: Weight gain) Qty: 30 0RF
Rx Instructions:
For weight gain 3 lb in 24 hours or 5lb weight gain in 1 week
Interventions
Interventions:
*Risk Screen - Suicide Last Done: 12/30/24 23:14
*General Assessment Last Done: 12/30/24 23:14
*Neglect/Abuse Screening Last Done: 12/30/24 23:14
*ED- Fall Risk Assessment Last Done: 12/30/24 23:14
*ED COVID-19 Vaccine History Last Done: 12/30/24 23:14
ED-Skin Assessment Last Done: 12/31/24 00:29
Discharge Date and Time
Print Language: BELIZEAN
[2024-12-31] MEDS: FLAGYL 500 MG 100 IV ×3 (00:53→15:48)
--- NOTE | 2024-12-31 01:33 | HPS.HSE ---
Family Physician
-
Family Physician:
Chief Complaint
-
Animal bite
History of Present Illness
This is a 84-year-old with past medical history significant for CAD, COPD, hyperlipidemia, hypertension, arthritis, PMR, dementia presenting to the emergent department following a cat bite.
Patient was bitten by his own vaccinated cat today. His rapid development of erythema and edema with throbbing pain in the left forearm. He had a tracking erythema up to the elbow. He had chills. Spouse has similar cat bite.
Patient is not on any immunosuppressants. He is not currently on any antibiotics.
In the emergency department he was afebrile, blood pressure was 160/80 with a pulse of 76 satting at 9% on room air. He had a white count of 13,000, CBC otherwise unremarkable. Electrolytes were normal. BUN/creatinine were normal. Glucose was
normal.
X-ray of the arm shows no foreign body, no fluid collection, no gas
Medical History
Past Medical History
Past Medical History: Reports CAD (s/p MN (inferior wall) and PCI to mid RCA ), COPD, GERD and HTN
Additional Past Medical History:
Polymyalgia Rheumatica
Past Surgical History: Reports None
Social History
Unable to obtain full social history at this time due to: Dementia
Tobacco: Non-smoker
Alcohol: None
Drug: None
Personal: Single
Living: With Family
Employment: Retired
Family History
Family History: Not pertinent
Allergies / Home Medications
Allergies reflects when Allergies were last updated in [employer].
Home Medications with original date entered in [employer]
Allergy/Medication List:
Allergies
Allergy/AdvReac Type Severity Reaction Status Date / Time
morphine Allergy Hives Verified 06/12/23 09:55
penicillin V [Penicillin V] Allergy Rash Verified 06/12/23 09:55
Home Medications
donepezil 10 mg tablet 10 mg PO DAILY Mental Health/Anxiety 06/15/19
prednisone 1 mg tablet 3 mg PO DAILY Infection 06/15/19
escitalopram oxalate 20 mg tablet 20 mg PO DAILY 06/20/23
aspirin 81 mg chewable tablet 81 mg PO DAILY #30 tabs 11/15/23
atorvastatin 80 mg tablet 80 mg PO QPM High cholesterol #30 tabs 11/15/23
clopidogrel 75 mg tablet 75 mg PO DAILY Heart disease/condition #30 tabs 11/15/23
metoprolol tartrate 25 mg tablet 12.5 mg (1/2 x 25 mg) PO BID Heart disease/condition #60 tabs 11/15/23
pantoprazole 40 mg tablet,delayed release 40 mg PO DAILY Gastrointestinal issue #30 tabs 11/15/23
Review of Systems
-
Constitutional: Reports No Symptoms
EENT: Reports No Symptoms
Respiratory: Reports No Symptoms
Cardiac: Reports No Symptoms
Abdomen/GI: Reports No Symptoms
: Reports No Symptoms
Musculoskeletal: Reports No Symptoms
Skin: Reports Rash
Neurological: Reports No Symptoms
Endocrine: Reports No Symptoms
Hematologic/Lymphatic: Reports No Symptoms
Psych: Reports No Symptoms
Physical Exam
Vital Signs
Vital Signs
Temp Pulse Resp BP Pulse Ox
98.4 F 76 18 159/81 99
12/30/24 23:14 12/31/24 00:33 12/31/24 00:33 12/31/24 00:33 12/31/24 00:51
Physical Exam
General: Comfortable and Fever
HEENT: NormoCephalic, Moist mucous membranes, Atraumatic and PERRLA
Respiratory: Crackles
Cardiac: S1/S2 and Regular Rhythm
Breast: Deferred by me
GI: Soft, Non Tender and Non Distended
Rectal: Deferred by Provider
Genito-urinary: Deferred by me
Musculoskeletal: No Clubbing, No Cyanosis and No Edema
Skin: Rash (5 cm area of erythema and induration as well as a swelling and warmth in the ventral distal forearm with tracking up to the antecubital fossa)
Neuro: Awake, Alert and No Motor Deficits
Hematologic/Lymphatic: No Lymphadenopathy
Psych: Calm
Laboratory Results
-
12/31/24 00:04
12/31/24 00:04
Laboratory Results
Total Bilirubin 0.6 mg/dl (0.2-1.3) 12/31/24 00:04
AST 28 U/L (17-59) 12/31/24 00:04
ALT 39 U/L (0-50) 12/31/24 00:04
Alkaline Phosphatase 71 U/L (38-126) 12/31/24 00:04
Data Reviewed
-
Diagnostic Radiology: Image Personally Visualized and interpreted
Lab Data: Labs Reviewed by me
Old Records: Reviewed
Impression/Plan
-
IMPRESSION:
84-year-old with dementia presenting to the emergency department following an bite from his own vaccinated cat. He has a rapidly development of erythema as well as chills. He has leukocytosis of 13,000. No other systemic findings. Benefit from
admission due to the rapid and lymphangitic spread.
PLAN:
Animal bite -soft tissue infection following animal bite (cat)
-Admit to MedSurg observation
-Animal has been vaccinated, no risk for rabies
-Given cat bite, cover Pasteurella, patient allergic to penicillin, continue doxycycline/Flagyl appropriate
-Blood culture sent
-Pain control
-Serial examination
CAD - CAD s/p recent MN and PCI with stents with RCA
- continue aspirin plavix
- continue statin
- beta blocakde 12.5 bid
Continue his usual home medications
DVT prophylaxis Prosper Lovenox subcu
CODE STATUS�full code
[2024-12-31] MEDS: VIBRAMYCIN 260 MG IV ×3 (02:28→23:29)
[2024-12-31] MEDS: ROXICODONE 5 MG PO ×2 (03:11→21:42)
[2024-12-31 03:53] VITALS: BP 150/92
[2024-12-31 06:00] VITALS: BMI 18.4
[2024-12-31 06:50] LABS: Hematocrit 30.9 % (39.0-52.0); Hemoglobin 10.6 g/dL (13.0-18.0); Mean Corp Hgb Conc. 34.3 g/dL (33.0-37.0); Mean Corpuscular Volume 90.9 fL (80.0-94.0); Platelet Count 177 10^3/uL (130-400); Red Cell Dist. Width 12.7 % (11.5-14.5)
[2024-12-31 07:14] LABS: Blood Urea Nitrogen 15 mg/dl (9-20); Calcium 8.8 mg/dl (8.4-10.2); Carbon Dioxide 23 mmol/L (22-30); Chloride 106 mmol/L (98-107); Estimated Creatinine Clearance 70 ml/min; Glucose 106 mg/dl (70-99); Potassium 3.6 mmol/L (3.5-5.1); Sodium 133 mmol/L (135-145); eGFR > 60.00
--- NOTE | 2024-12-31 07:41 | PTCARENOTE ---
Patient arrived on unit @0245 via stretcher from ED, ambulate to bed with assist x1 with cane. Patient AAOx2, c/o pain to Left arm, prn roxicodone given as ordered. Skin assessment completed, oriented to unit, call leahy within reach.
[2024-12-31 07:44] VITALS: BP 93/60
[2024-12-31 08:50] LABS: C-Reactive Protein 21.00 mg/L (0.0-10.00)
[2024-12-31] MEDS: ROXICODONE 10 MG PO ×3 (08:55→21:42)
[2024-12-31] MEDS: LOW STRENGTH ASPIRIN 81 MG PO (08:55)
[2024-12-31] MEDS: ARICEPT 10 MG PO (08:55)
[2024-12-31] MEDS: PROTONIX 40 MG PO (08:55)
[2024-12-31] MEDS: LOPRESSOR 12.5 MG PO ×2 (08:55→20:10)
[2024-12-31] MEDS: PLAVIX 75 MG PO (08:55)
[2024-12-31] MEDS: CYMBALTA DELAYED RELEASE 20 MG PO (08:56)
--- NOTE | 2024-12-31 12:18 | W.PN.HOSP.TC ---
Today's Communication/Plan
-
dc
Assessment / Plan
Assessment / Plan
84yo M with PMRon Prednisone due to iatrogenic adrenal insufficiency, HTN, HLD, ASCVD came after being bitten by his cat, when he was trying to catch him since he ran outside. Cat is vaccinated. Developed pain and swelling at the place of bite on L
wrist that is rapidly resolving on Abx. ESR normal. XR showed Soft tissue swelling of the ventral distal forearm. No acute osseous abnormality. Reasonable to d/c home on oral Abx total of 10 days and follow up with PCP afterwards - patient
verbalized understanding of the instructions
A/P:
#Cat byte
due to penicillin allergy - on Doxy/Flagyl
target 10 days total 2/2 patient immunosuppressed with PMR and prednisone
Outpatient f/u with PCP
Probiotics
Leukocytosis cannot be reliable indicator of progression with Prednisone
Avoid direct sunlite, alcohol and calcium supplments while on Abx
Bcx NTD
#CAD s/p PCI
#HLD
#Essential HTN
#PMR
#Iatrogenic adrenal insufficiency
#Dementia
cont home meds
DVT ppx SCDs
Full code
I have spent at least 57min reviewing chart, test results, communication with consultants and providing direct patient care
Anticipated Discharge: Today
Subjective/Interval History
-
Date of Service: December 31, 2024
Objective Data
-
Labs:
Laboratory Results
12/31/24 12/31/24
00:04 06:23
WBC 13.0 H 15.3 H
Hgb 12.6 L 10.6 L
Hct 37.6 L 30.9 L
Plt Count 243 177 D
Sodium 141 133 L D
Potassium 4.2 3.6
Chloride 106 106
Carbon Dioxide 28 23
BUN 20 15
Creatinine 0.8 0.6 L
Glucose 97 106 H
Calcium 9.6 8.8
Total Bilirubin 0.6
AST 28
ALT 39
Alkaline Phosphatase 71
Vital Signs:
Vital Signs
Temp Pulse Resp BP Pulse Ox
99.3 F 101 16 111/67 98
12/31/24 07:44 12/31/24 08:55 12/31/24 07:44 12/31/24 08:55 12/31/24 07:44
I&O
12/30/24 12/31/24 01/01/25
06:59 06:59 06:59
Intake Total 0 / 0
Output Total 0 / 0
Balance 0 / 0
Review of Systems
-
History Source: Patient
All other systems: Reviewed and negative
Physical Exam
-
General: No Apparent Distress
HEENT: Normocephalic
Respiratory: Clear to Auscultation
Musculoskeletal: Other (L wrist with mild redness and two non-purulent bites)
Neuro: Awake, Alert, Oriented and AO x 3
Psych: Calm
--- NOTE | 2024-12-31 13:18 | CM ---
Addendum entered by Geri Gregory 12/31/24 14:14:
RODRIGUEZ form explained to patient/. Verbalize understanding - in chart
interested in VN - options discussed [facility] preferred - notified [facility] liaison - referral to be entered
CM consult for VN - [facility] hospitalist
Spoke with who stated she is in the ED currently for cat bite as well. Discussed VN
She stated she would be the one to transport him home.
tt hospitalist
PLAN: Home, with [facility]
to transport (in ED currently cat bite)
Original Note:
Patient seen at bedside
IA completed
Dx: pasteurella cellulitis d/t cat bite
PMH: CAD (s/p CO (inferior wall) and PCI to mid RCA ), COPD, GERD and HTN
Lives with in a 2 story home, 6 JOS, flight stairs to 2nd floor bed/bath
PLOF: Independent with walker/cane
DME: Walker, cane
Denies VN/Rehab
Denies insecurities
PCP:
Pharmacy: [facility] [place]
PLAN: home, no needs currently, CM to continue to follow for needs
--- NOTE | 2024-12-31 13:25 | W.DCSUMMARY ---
Discharge Summary
Discharge Data
Date of Admission: 12/31/24
Date of Discharge: 12/31/24
-
Pending Results: No
Hospital Course
84yo M with PMRon Prednisone due to iatrogenic adrenal insufficiency, HTN, HLD, ASCVD came after being bitten by his cat, when he was trying to catch him since he ran outside. Cat is vaccinated. Developed pain and swelling at the place of bite on L
wrist that is rapidly resolving on Abx. ESR normal. XR showed Soft tissue swelling of the ventral distal forearm. No acute osseous abnormality. Reasonable to d/c home on oral Abx total of 10 days and follow up with PCP afterwards - patient
verbalized understanding of the instructions
I have spent at least 57min reviewing chart, test results, communication with consultants and providing direct patient care
Patient was managed for:
#Cat byte with cellulitis
#CAD s/p PCI
#HLD
#Essential HTN
#PMR
#Iatrogenic adrenal insufficiency
#Dementia
Discharge Plan
-
Patient Disposition: Home (Routine Discharge)
Discharge Diagnosis/Procedures: cat bite
Condition: Fair
Referrals:
UNKNOWN - PT DOES,NOT KNOW [Family Provider]
Additional Discharge Medication Instructions: Avoid direct sunlite, alcohol and calcium supplments while on Abx
Prescriptions:
New
pantoprazole 40 mg Tablet,Delayed Release (Dr/Ec)
40 mg PO DAILY Qty: 0 0RF
doxycycline hyclate 100 mg capsule
100 mg PO BID Qty: 18 0RF
metronidazole 500 mg tablet
500 mg PO Q8H Qty: 27 0RF
Continued
donepezil 10 MG tablet
10 mg PO DAILY
prednisone 1 MG tablet
3 mg PO DAILY
Patient Comments:
DOES NOT TAKE
atorvastatin 80 mg Tablet
80 mg PO QPM Qty: 30 11RF
aspirin 81 mg tablet,chewable
81 mg PO DAILY Qty: 30 11RF
metoprolol tartrate 25 mg Tablet
25 mg PO BID Qty: 60 11RF
furosemide [Lasix] 20 mg tablet
20 mg PO DAILY PRN (Reason: Weight gain) Qty: 30 0RF
Patient Comments:
DOES NOT TAKE
Rx Instructions:
For weight gain 3 lb in 24 hours or 5lb weight gain in 1 week
Discontinued
doxycycline hyclate 100 mg Capsule
100 mg PO Q12 Qty: 6 0RF
Rx Instructions:
Last dose 11/23 eveing
Discharge Orders:
Discharge Patient (As Directed); Ordered 12/31/24
Ordered By: Erasto Randle
Discharge Date and Time
Print Language: BELIZEAN
--- NOTE | 2024-12-31 15:05 | VNURNOTE ---
Home Health Liaison spoke with patient's spouse Birdie (she was in ER for same cat bite & scratch). Discussed [facility] nurse/therapy, visits, schedule and homebound status. Spouse is agreeable and understands that visits at home will be 2-3 x
per week to assess and teach medical management. Spouse is aware that [facility] will contact them for start of care in 1-2 days after discharge from .
[facility] referral completed in [facility].
[2024-12-31 15:25] VITALS: BP 103/64
[2024-12-31] MEDS: LOVENOX 40 MG SC (17:32)
[2024-12-31] MEDS: LIPITOR 80 MG PO (17:33)
[2024-12-31 23:25] VITALS: BP 139/71
[2025-01-01] MEDS: FLAGYL 500 MG 100 IV ×3 (00:49→15:53)
[2025-01-01] MEDS: ROXICODONE 5 MG PO ×3 (03:45→21:59)
[2025-01-01 07:00] VITALS: BP 134/73
[2025-01-01 08:17] LABS: Hematocrit 33.1 % (39.0-52.0); Hemoglobin 11.0 g/dL (13.0-18.0); Mean Corp Hgb Conc. 33.2 g/dL (33.0-37.0); Mean Corpuscular Volume 92.5 fL (80.0-94.0); Nucleated Red Blood Cells % 0 % (-); Platelet Count 156 10^3/uL (130-400); Red Cell Dist. Width 12.9 % (11.5-14.5)
[2025-01-01] MEDS: PROTONIX 40 MG PO (08:30)
[2025-01-01] MEDS: CYMBALTA DELAYED RELEASE 20 MG PO (08:30)
[2025-01-01] MEDS: LOW STRENGTH ASPIRIN 81 MG PO (08:30)
[2025-01-01] MEDS: LOPRESSOR 12.5 MG PO ×2 (08:32→19:49)
[2025-01-01] MEDS: ROXICODONE 10 MG PO ×3 (08:33→22:03)
[2025-01-01] MEDS: ARICEPT 10 MG PO (08:33)
[2025-01-01] MEDS: FLUSH (NSS) 2 FLUSH IV (08:34)
[2025-01-01] MEDS: PLAVIX PO (08:39)
[2025-01-01] MEDS: FLAGYL 500 MG IV (08:41)
--- NOTE | 2025-01-01 09:58 | W.PN.HOSP.TC ---
Today's Communication/Plan
-
CT LUE
cont Abx, if continues to get worse - consider switching ABx to Merrem
Assessment / Plan
Assessment / Plan
84yo M with PMRon Prednisone due to iatrogenic adrenal insufficiency, HTN, HLD, ASCVD came after being bitten by his cat, when he was trying to catch him since he ran outside. Cat is vaccinated. Developed pain and swelling at the place of bite on L
wrist that is rapidly resolving on Abx. ESR normal. XR showed Soft tissue swelling of the ventral distal forearm. No acute osseous abnormality initially, developed worsening swelling and redness of L forearm with swelling upon wrist joints
A/P:
#Cat byte
due to penicillin allergy - on Doxy/Flagyl
target 10 days total 2/2 patient immunosuppressed with PMR and prednisone
Outpatient f/u with PCP
Probiotics
Leukocytosis cannot be reliable indicator of progression with Prednisone
Avoid direct sunlight, alcohol and calcium supplements while on Abx
Bcx NTD
with worsening swelling and redness of L forearm with swelling upon wrist joints - reasonable CT LUE as per UpToDate recommendations
#CAD s/p PCI
#HLD
#Essential HTN
#PMR
#Iatrogenic adrenal insufficiency
#Dementia
cont home meds
DVT ppx SCDs
Full code
I have spent at least 57min reviewing chart, test results, communication with consultants and providing direct patient care
Anticipated Discharge: > 48 hours
Subjective/Interval History
-
Date of Service: January 01, 2025
Objective Data
-
Labs:
Laboratory Results
01/01/25
07:21
WBC 11.6 H
Hgb 11.0 L
Hct 33.1 L
Plt Count 156
Vital Signs:
Vital Signs
Temp Pulse Resp BP Pulse Ox
98.7 F 73 18 134/73 100
01/01/25 07:00 01/01/25 08:32 01/01/25 07:00 01/01/25 08:32 01/01/25 07:00
I&O
12/31/24 01/01/25 01/02/25
06:59 06:59 06:59
Intake Total 0 / 0 1200 / 1200
Output Total 0 / 0
Balance 0 / 0 1200 / 1200
Review of Systems
-
History Source: Patient
All other systems: Reviewed and negative
Musculoskeletal: Reports Other (worsening pain and redness L forearm)
Physical Exam
-
General: No Apparent Distress
HEENT: Normocephalic
Respiratory: Clear to Auscultation
GI: Soft, Nontender and Nondistended
Musculoskeletal: Other (worsening swelling and redness of L forearm with swelling upon wrist joints)
Neuro: Awake, Alert, Oriented and AO x 3
Psych: Calm and Apparent Dementia
--- NOTE | 2025-01-01 12:12 | PN.CDI ---
CDI
- -
CDI:
Physician Documentation Request
Admit Date: 12/31/24 01:56
Dear Doctor Jer,
Please review the following and provide your response in the progress notes.
Clinical Indicators:
Height: 5'8
Weight: 121 lbs
BMI: 18.4
If possible, please provide an associated diagnosis related to the abnormal BMI, such as:
Underweight
Cachectic
Other (please specify)
Use of terms such as suspected, likely, concern for, or probable (associated with a specific diagnosis that is being evaluated, monitored, or treated as if it exists) are acceptable and can be coded in the inpatient setting, when documented at the
time of discharge.
Thank you,
Donnell Peralta RN
CDI Specialist
Please use your independent medical judgment in providing your response.
[2025-01-01] MEDS: VIBRAMYCIN 260 MG IV ×2 (12:36→23:18)
[2025-01-01 15:00] VITALS: BP 94/50
--- NOTE | 2025-01-01 15:38 | CM ---
changed IV antibiotics.
Offered VN . Liaison Deedee set up [facility] for discharge.
is pts caregiver.
will drive him home at [place].
PLAN Home with [facility]
[2025-01-01] MEDS: LIPITOR 80 MG PO (17:42)
[2025-01-01] MEDS: LOVENOX 40 MG SC (17:42)
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
[2025-01-01] MEDS: ZYPREXA 5 MG IM (23:55)
[2025-01-01] MEDS: STERILE WATER FOR INJECTION 2.1 ML IM (23:55)
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
[2025-01-02] MEDS: FLAGYL 500 MG 100 IV ×2 (01:18→08:21)
[2025-01-02 05:49] LABS: Hematocrit 31.4 % (39.0-52.0); Hemoglobin 10.6 g/dL (13.0-18.0); Mean Corp Hgb Conc. 33.8 g/dL (33.0-37.0); Mean Corpuscular Volume 90.8 fL (80.0-94.0); Nucleated Red Blood Cells % 0 % (-); Platelet Count 164 10^3/uL (130-400); Red Cell Dist. Width 12.7 % (11.5-14.5)
[2025-01-02 06:12] LABS: ALT (SGPT) 19 U/L (0-50); AST (SGOT) 17 U/L (17-59); Albumin 3.1 g/dl (3.5-5.0); Alkaline Phosphatase 58 U/L (38-126); Blood Urea Nitrogen 9 mg/dl (9-20); Calcium 8.7 mg/dl (8.4-10.2); Carbon Dioxide 25 mmol/L (22-30); Chloride 105 mmol/L (98-107); Estimated Creatinine Clearance 70 ml/min; Glucose 98 mg/dl (70-99); Potassium 3.6 mmol/L (3.5-5.1); Sodium 135 mmol/L (135-145); Total Protein 5.0 g/dl (6.3-8.2); eGFR > 60.00
[2025-01-02 07:42] VITALS: BP 117/65
[2025-01-02] MEDS: LOW STRENGTH ASPIRIN 81 MG PO (08:21)
[2025-01-02] MEDS: LOPRESSOR 12.5 MG PO (08:21)
[2025-01-02] MEDS: ARICEPT 10 MG PO (08:21)
[2025-01-02] MEDS: CYMBALTA DELAYED RELEASE 20 MG PO (08:21)
[2025-01-02] MEDS: ROXICODONE 10 MG PO ×3 (08:21→21:19)
[2025-01-02] MEDS: PLAVIX 75 MG PO (08:21)
[2025-01-02] MEDS: PROTONIX 40 MG PO (08:21)
--- NOTE | 2025-01-02 09:35 | W.PN.HOSP.TC ---
Addendum entered and electronically signed by Erasto Randle MD 01/02/25 09:44:
#Malnutrition
BMI 18.4
increase calorie intake
Original Note:
Today's Communication/Plan
-
Unasyn trial with close follow up
Discussed with family over the phone in details
Assessment / Plan
Assessment / Plan
84yo M with PMRon Prednisone due to iatrogenic adrenal insufficiency, HTN, HLD, ASCVD came after being bitten by his cat, when he was trying to catch him since he ran outside. Cat is vaccinated. Developed pain and swelling at the place of bite on L
wrist that is rapidly resolving on Abx. ESR normal. XR showed Soft tissue swelling of the ventral distal forearm. No acute osseous abnormality initially, developed worsening swelling and redness of L forearm with swelling upon wrist joints
A/P:
#Cat byte
due to penicillin allergy - on Doxy/Flagyl on admision, however redness progressed, so switched to Unasyn - as per patient and family - he had remote episode of rash with penicillin in his young age and as per chart review - tolerated other
beta-lactam - Cephalosporin - since then. With antibiotic failure, concern for spreading infection - reasonable trial of Unasyn with close f/u by RN - discussed same and agreed with family
target 10 days total 2/2 patient immunosuppressed with PMR and prednisone
Probiotics
Leukocytosis cannot be reliable indicator of progression with Prednisone
Bcx NTD
CT LUE without abscess or tissue gas, no concern for bone involvement
#Dementia with behavioral disturbances
sundowning in AM
check EKG for QTc (normal in 2023) and start low dose Quetapine HS
#CAD s/p PCI
#HLD
#Essential HTN
#PMR
#Iatrogenic adrenal insufficiency
cont home meds
DVT ppx SCDs
Full code
I have spent at least 51min reviewing chart, test results, communication with family and providing direct patient care
Anticipated Discharge: > 48 hours
Subjective/Interval History
-
Date of Service: January 02, 2025
Objective Data
-
Labs:
Laboratory Results
01/02/25
05:10
WBC 9.8
Hgb 10.6 L
Hct 31.4 L
Plt Count 164
Sodium 135
Potassium 3.6
Chloride 105
Carbon Dioxide 25
BUN 9
Creatinine 0.5 L
Glucose 98
Calcium 8.7
Total Bilirubin 0.6
AST 17
ALT 19
Alkaline Phosphatase 58
Vital Signs:
Vital Signs
Temp Pulse Resp BP Pulse Ox
99.1 F 75 18 117/65 98
01/02/25 07:42 01/02/25 08:21 01/02/25 07:42 01/02/25 08:21 01/02/25 07:42
I&O
01/01/25 01/02/25 01/03/25
06:59 06:59 06:59
Intake Total 1200 / 1200 1300 / 1300 300 / 300
Output Total 525 / 525 240 / 240
Balance 1200 / 1200 775 / 775 60 / 60
Review of Systems
-
History Source: Patient
All other systems: Reviewed and negative
Physical Exam
-
General: No Apparent Distress
HEENT: Normocephalic
Respiratory: Clear to Auscultation
GI: Soft, Nontender and Nondistended
Musculoskeletal: Other (LUE redness and swelling )
Neuro: Awake, Alert, Oriented and AO x 3
Psych: Calm and Apparent Dementia
--- NOTE | 2025-01-02 10:23 | PTCARENOTE ---
Pt presently calm. 1:1 in room available to redirect pt. Restraints removed @08:00. Will continue to monitor.
[2025-01-02] MEDS: UNASYN IV ×3 (10:27→21:18)
--- NOTE | 2025-01-02 11:22 | PN.CDI ---
Addendum entered and electronically signed by Erasto Randle MD 01/02/25 12:14:
No further clarification available
Original Note:
CDI
- -
CDI:
Physician Documentation Request
Admit Date: 01/02/25 07:24
Dear Doctor Jer,
Please review the following and provide your response in the progress notes.
Clinical Indicators:
- 01/02 PN indicates malnutrition without specificity
- No PT assessment
- 12/31 Ceramic Sprayer 'He states that he intentionally lost weight on a weight loss program. He did not specify how much weight he lost'
- 'underweight'
Based on the above information and your assessment, which of the following most accurately represents the patient's nutritional status?
Malnutrition (specify if mild, moderate or severe)
Cachexia without malnutrition
Underweight without malnutrition
No nutritional deficiency
Other (please specify)
[place] Criteria ([facility] Hospitalist 2017)
2 or more criteria must be present for either
non severe or severe malnutrition
Note that the criteria differs related to the
presence of an acute or chronic illness
Acute Illness Chronic Illness
Energy Intake Non Severe: <75% for >7 days Non Severe: <75% for >1 month
Severe: <50% for >5 days Severe: <75% for >1 month
Weight Loss Non Severe: 1-2% over 1 week Non Severe: 5% over 1 month
5% over 1 month 7.5% over 3 months
7.5% over 3 months 10% over 6 months
1 year N/A 20% over 1 year
Severe: >2% over 1 week Severe: >5% over 1 month
>5% over 1 month >7.5% over 3 months
>7.5% over 3 months >10% over 6 months
1 year N/A >20% over 1 year
Body Fat Non Severe: Mild Decrease Non Severe: Mild Loss
Severe: Moderate Decrease Severe: Severe Loss
Muscle Mass Non Severe: Mild Decrease Non Severe: Mild Loss
Severe: Moderate Decrease Severe: Severe Loss
Fluid Accumulation Non Severe: Mild Accumulation Non Severe: Mild Accumulation
Severe: Moderate to severe Severe: Moderate to severe
accumulation accumulation
Reduced Flame Planer Strength Non Severe: N/A Non Severe: N/A
Severe: Measurably reduced Severe: Measurably reduced
Additional criteria that can be used to Determine if Mild or Moderate Malnutrition (Merck Manual 2018)
Mild Moderate Severe
Albumin gm/dl <3.0 gm/dl <2.5 gm/dl <2.0 gm/dl
Pre Albumin mg/dl <15 gm/dl <10 mg/dl <5.0 mg/dl
BMI <18.5 <17 <16
Use of terms such as suspected, likely, concern for, or probable (associated with a specific diagnosis that is being evaluated, monitored, or treated as if it exists) are acceptable and can be coded in the inpatient setting, when documented at the
time of discharge.
Thank you,
Donnell Peralta RN
CDI Specialist
Please use your independent medical judgment in providing your response.
[2025-01-02 15:15] VITALS: BP 94/50
[2025-01-02 16:00] VITALS: BP 104/67
--- NOTE | 2025-01-02 17:02 | CM ---
Pt changed to inpatient . IMM given explained to signed on chart.
ON IV antibiotics.
Offered VN . Liaison Deedee set up VN for discharge.
is pts caregiver.
[place] drive him [place]
PLAN Home with [facility]
[2025-01-02] MEDS: LOVENOX 40 MG SC (17:35)
[2025-01-02] MEDS: LIPITOR 80 MG PO (17:35)
[2025-01-02] MEDS: VALIUM INJECTION 2 MG IV (19:50)
[2025-01-02] MEDS: SEROQUEL 25 MG PO (21:19)
[2025-01-02] MEDS: ROXICODONE 5 MG PO (21:20)
[2025-01-02 23:00] VITALS: BP 116/64
[2025-01-03] MEDS: UNASYN IV ×4 (03:10→20:58)
[2025-01-03 05:59] LABS: Hematocrit 30.5 % (39.0-52.0); Hemoglobin 10.6 g/dL (13.0-18.0); Mean Corp Hgb Conc. 34.8 g/dL (33.0-37.0); Mean Corpuscular Volume 91.0 fL (80.0-94.0); Nucleated Red Blood Cells % 0 % (-); Platelet Count 180 10^3/uL (130-400); Red Cell Dist. Width 13.0 % (11.5-14.5)
[2025-01-03 06:23] LABS: ALT (SGPT) 17 U/L (0-50); AST (SGOT) 20 U/L (17-59); Albumin 3.2 g/dl (3.5-5.0); Alkaline Phosphatase 56 U/L (38-126); Blood Urea Nitrogen 12 mg/dl (9-20); Calcium 8.7 mg/dl (8.4-10.2); Carbon Dioxide 22 mmol/L (22-30); Chloride 107 mmol/L (98-107); Estimated Creatinine Clearance 70 ml/min; Glucose 94 mg/dl (70-99); Potassium 3.7 mmol/L (3.5-5.1); Sodium 136 mmol/L (135-145); Total Protein 5.3 g/dl (6.3-8.2); eGFR > 60.00
[2025-01-03 07:00] VITALS: BP 131/70
[2025-01-03 07:40] LABS: Urine Character Clear (Clear)
[2025-01-03 08:05] LABS: Urine White Cell 0-2 /HPF (0-5)
[2025-01-03] MEDS: ROXICODONE 10 MG PO ×2 (09:00→20:59)
[2025-01-03] MEDS: CYMBALTA DELAYED RELEASE 20 MG PO (09:00)
[2025-01-03] MEDS: PROTONIX 40 MG PO (09:00)
[2025-01-03] MEDS: LOW STRENGTH ASPIRIN 81 MG PO (09:01)
[2025-01-03] MEDS: ARICEPT 10 MG PO (09:01)
[2025-01-03] MEDS: PLAVIX 75 MG PO (09:01)
[2025-01-03] MEDS: TOPROL XL 12.5 MG PO (09:02)
--- NOTE | 2025-01-03 10:13 | W.PN.HOSP.TC ---
Addendum entered and electronically signed by Erasto Randle MD 01/03/25 11:13:
#Dysuria
UCx pending
Original Note:
Today's Communication/Plan
-
Cont unasyn
MRI LUE as per ortho request
Assessment / Plan
Assessment / Plan
84yo M with PMRon Prednisone due to iatrogenic adrenal insufficiency, HTN, HLD, ASCVD came after being bitten by his cat, when he was trying to catch him since he ran outside. Cat is vaccinated. Developed pain and swelling at the place of bite on L
wrist that is rapidly resolving on Abx. ESR normal. XR showed Soft tissue swelling of the ventral distal forearm. No acute osseous abnormality initially, developed worsening swelling and redness of L forearm with swelling upon wrist joints
A/P:
#Cat byte
due to penicillin allergy - on Doxy/Flagyl on admision, however redness progressed, so switched to Unasyn - as per patient and - he had remote episode of rash with penicillin in his young age and as per chart review - tolerated other
beta-lactam - Cephalosporin - since then. With antibiotic failure, concern for spreading infection - reasonable trial of Unasyn started on 01/02/26 and patient tolerated without reaction
Probiotics
Leukocytosis cannot be reliable indicator of progression with Prednisone
Bcx NTD
CT LUE without abscess or tissue gas, no concern for bone involvement, however
skin redness with resolved swelling in forearm next day after Unasyn.
Ortho consult since US LUE that was done to r/o thrombosis noted Ovoid hypoechoic focus/complex fluid collection within the left wrist measuring 1.8 x 0.8 x 0.8 cm. MRI LUE pending as per ortho recommendations
#Dementia with behavioral disturbances
sundowning in AM
QTc normal in 2023- start low dose Quetapine HS, Valium PRN
#CAD s/p PCI
#HLD
#Essential HTN
#PMR
#Iatrogenic adrenal insufficiency
cont home meds
DVT ppx SCDs
Full code
I have spent at least 53min reviewing chart, test results, communication with consultants and providing direct patient care
Anticipated Discharge: > 48 hours
Subjective/Interval History
-
Date of Service: January 03, 2025
Objective Data
-
Labs:
Laboratory Results
01/03/25
05:36
WBC 7.9
Hgb 10.6 L
Hct 30.5 L
Plt Count 180
Sodium 136
Potassium 3.7
Chloride 107
Carbon Dioxide 22
BUN 12
Creatinine 0.6 L
Glucose 94
Calcium 8.7
Total Bilirubin 0.7
AST 20
ALT 17
Alkaline Phosphatase 56
Vital Signs:
Vital Signs
Temp Pulse Resp BP Pulse Ox
97.7 F 96 17 131/70 97
01/03/25 07:00 01/03/25 07:00 01/03/25 07:00 01/03/25 07:00 01/03/25 07:00
I&O
01/02/25 01/03/25 01/04/25
06:59 06:59 06:59
Intake Total 1300 / 1300 300 / 300
Output Total 525 / 525 240 / 240
Balance 775 / 775 60 / 60
Review of Systems
-
History Source: Patient
All other systems: Reviewed and negative
Musculoskeletal: Reports Other (L forearm pain)
Physical Exam
-
General: No Apparent Distress
HEENT: Normocephalic
Respiratory: Clear to Auscultation
Musculoskeletal: Other (L wrist with swelling and pain, two non-purulent puncture wounds healing, skin redness with resolved swelling in forearm)
Neuro: Awake, Alert, Oriented and AO x 3
Psych: Calm and Apparent Dementia
--- NOTE | 2025-01-03 10:22 | CON.ORTHO ---
Consultation
-
Date/Time Consultation Requested: 01/02/2025 @ 18:53
Date/Time Consultation Performed: 01/03/2025 @ 9:45 AM
Requesting Provider: Erasto Randle MD
Performing Provider: Venkatesh Enciso PA-C for Dr. Tony Rooney MD
Reason for Consultation: Concern for Left Wrist Abscess
Consultation - Orthopedics
History
Orthopedic Surgery Note
CC: Left Wrist Cat Bite x Sunday12/29/2024; Concern for Left Wrist Abscess
HPI: The patient is an 84-year-old [id number]-solssazx male with a PMH significant for PMR on prednisone due to iatrogenic adrenal insufficiency, mild dementia, HTN, HLD, and ASCVD who presented to [facility] on Sunday12/30/2024 after sustaining a cat
bite to the radial aspect of his left wrist. DOI: Sunday12/29/2024. History partially obtained from patient, however also discussed with medical team and the patient's due to his underlying mild dementia; patient's reports that he is a
poor historian. He reports that he developed increased pain and swelling at the location of the cat bite, prompting evaluation in the ED. On admission, he was started on Doxycycline/Flagyl, however transitioned to Unasyn yesterday due to worsening
erythema and swelling. X-rays and upper extremity CT were performed and revealed soft tissue swelling without any acute osseous abnormality; CT did not reveal any obvious evidence of drainable abscess. He underwent peripheral vascular ultrasound
yesterday to rule out upper extremity venous thrombosis, which was negative, however revealed an ovoid hypoechoic focus/complex fluid collection within the left wrist measuring 1.8 x 0.8 x 0.8 cm; representing a localized pocket of edema with
abscess also consideration. It is reported that the patient's cat is up-to-date with vaccinations. He reports increased pain to the radial aspect of his left wrist and forearm with range of motion. Swelling has mildly improved, however erythema
is still present. The patient endorses discomfort about his left wrist moving proximally into his forearm region. He denies any paresthesias. He denies any constitutional symptoms. Orthopedic Surgery was consulted for treatment recommendations
moving forward.
PMH/PSH: PMR on Prednisone due to Iatrogenic Adrenal Insufficiency, Mild dementia, HTN, HLD, ASCVD, COPD, Left total hip arthroplasty 05/24/[address] Pope.
Medications: Reviewed.
Family History: Family history was reviewed. Noncontributory.
Social history: Nonsmoker, no illicit drugs.
Exam
General appearance: Pleasant. No acute distress.
Head: Normocephalic/atraumatic
Nose: No lesions or discharge.
Skin: No obvious rashes or open wounds
Lungs: No audible wheezing, no cough or sputum production
Musculoskeletal:
LUE:
Physical examination of the left upper extremity reveals multiple cat bite/puncture wounds to the radial and volar aspects of his left wrist. There are some scratches also noted about the dorsum of the left wrist. There appears to be some gouty
tophi also noted about the radial aspect of the left wrist; patient reports that this is chronic. There is no obvious or expressible purulence about the puncture wounds. Wounds with dried blood/scabbing. There is erythema and ecchymosis noted
about the radial and volar aspects of the left wrist which appears to extend more proximally into the left forearm. There is tenderness to palpation over the radial aspect of the left wrist and forearm with some induration noted about the left
wrist/forearm. There is no tenderness to palpation about the volar aspect of the left hand/fingers. There is no significant tenderness to palpation about the dorsal aspect of the left hand/wrist. There is generalized edema noted to the radial
aspect of the left wrist in the vicinity of the first metacarpal and first dorsal compartment. APL and EPB grossly intact. He is able to demonstrate almost a complete composite fist without significant pain. Wrist range of motion is intact,
however overall diminished with pain. Elbow range of motion is intact. Fingers are pink and warm. Capillary refill is less than 2 seconds. Sensation is intact to light touch. NVI distally.
Xrays:
CR Forearm - LEFT 2 Viewwas performed at [facility] on 12/31/2024 and was made available for my review today. Findings: Soft tissue swelling at the ventral aspect of the distal forearm. No radiopaque foreign body or soft tissue gas. No
acute fracture or dislocation. The wrist and elbow joint alignments are maintained. Severe osteoarthritis of the first carpometacarpal joint with marked joint space narrowing, subchondral sclerosis, and bulky marginal osteophytes. Impression:
Soft tissue swelling of the ventral distal forearm. No acute osseous abnormality.
Imaging:
CT upper Ext w/iv Cont LT was performed at [facility] on 01/01/2025 and was made available for my review today. Findings and impression: Streak artifact from the left hip prosthetic slightly limits evaluation. There is diffuse soft tissues
swelling within the soft tissues of the left forearm. No evidence of drainable abscess. No cortical destruction to suggest osteomyelitis. Visualized vascular structures are within normal limits.
US Periph Venous UPPER LT was performed at [facility] on 01/02/2025 and was made available for my review today. Impression: No sonographic evidence for left upper extremity venous thrombosis. Ovoid hypoechoic focus/complex fluid collection
within the left wrist measuring 1.8 x 0.8 x 0.8 cm. This could represent a localized pocket of edema with abscess also consideration.
Assessment: 84-year-old [id number] male with cat bite to the radial and volar aspects of the left wrist. DOI: 12/29/2024.
Plan:
1) Continue with IV Abx per primary team (IV Unasyn).
2) Incorporate warm soaks TID for ~5-10 minutes. Order placed.
3) Ice therapy and elevation for edema control. Pain control per primary team.
4) Recommended proceeding with MRI of the left wrist for further evaluation of the soft tissue structures and to rule-out fluid collection/abscess formation.
5) Orthopedic surgery will continue to follow along.
Allergies / Home Medications
Allergy/AdvReac Type Severity Reaction Status Date / Time
morphine Allergy Hives Verified 12/30/24 23:13
penicillin V (Penicillin V) Allergy Rash Verified 12/30/24 23:13
�Medication �Instructions �Recorded
donepezil 10 mg tablet 10 mg PO DAILY DEMENTIA 06/15/19
prednisone 1 mg tablet 3 mg PO DAILY polymyalgia 06/15/19
rheumatica
aspirin 81 mg chewable tablet 81 mg PO DAILY #30 tabs 11/15/23
atorvastatin 80 mg tablet 80 mg PO QPM High cholesterol #30 11/15/23
tabs
furosemide 20 mg tablet (Lasix) 20 mg PO DAILY PRN Weight gain #30 11/21/23
tabs
metoprolol tartrate 25 mg tablet 25 mg PO BID Heart 11/21/23
disease/condition #60 tabs
doxycycline hyclate 100 mg capsule 100 mg PO BID #18 caps 12/31/24
metronidazole 500 mg tablet 500 mg PO Q8H #27 tabs 12/31/24
pantoprazole 40 mg tablet,delayed 40 mg PO DAILY #0 tabs 12/31/24
release
Vital Signs / Lab Results
Temp Pulse Resp BP Pulse Ox
97.7 F 96 17 131/70 97
01/03/25 07:00 01/03/25 07:00 01/03/25 07:00 01/03/25 07:00 01/03/25 07:00
01/03/25 05:36
01/03/25 05:36
[2025-01-03] MEDS: TYLENOL 650 MG PO (12:54)
[2025-01-03] MEDS: ROXICODONE 5 MG PO ×2 (12:55→20:59)
[2025-01-03 15:00] VITALS: BP 72/39
[2025-01-03 16:39] VITALS: BP 90/48
[2025-01-03] MEDS: TENIVAC 0.5 ML IM (16:40)
[2025-01-03] MEDS: ROXICODONE PO (16:42)
[2025-01-03] MEDS: LOVENOX 40 MG SC (16:42)
[2025-01-03] MEDS: LIPITOR 80 MG PO (16:42)
--- NOTE | 2025-01-03 20:00 | PTCARENOTE ---
Butrans patch noted on patients R shoulder. Not currently ordered and not listed on home med rec. Patch removed. 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 Order
placed for hospital MAR however patch is non formulary for our pharmacy. will have to bring in home supply.
[2025-01-03] MEDS: SEROQUEL 25 MG PO (20:59)
[2025-01-03 21:08] VITALS: BP 108/56
[2025-01-03 23:19] VITALS: BP 110/93
[2025-01-04] MEDS: TYLENOL 650 MG PO (00:39)
[2025-01-04] MEDS: UNASYN IV ×4 (03:19→21:17)
[2025-01-04 05:54] LABS: Hematocrit 28.8 % (39.0-52.0); Hemoglobin 9.5 g/dL (13.0-18.0); Mean Corp Hgb Conc. 33.0 g/dL (33.0-37.0); Mean Corpuscular Volume 92.3 fL (80.0-94.0); Nucleated Red Blood Cells % 0 % (-); Platelet Count 197 10^3/uL (130-400); Red Cell Dist. Width 13.1 % (11.5-14.5)
[2025-01-04 06:52] LABS: ALT (SGPT) 15 U/L (0-50); AST (SGOT) 16 U/L (17-59); Albumin 2.8 g/dl (3.5-5.0); Alkaline Phosphatase 48 U/L (38-126); Blood Urea Nitrogen 10 mg/dl (9-20); Calcium 8.4 mg/dl (8.4-10.2); Carbon Dioxide 26 mmol/L (22-30); Chloride 107 mmol/L (98-107); Estimated Creatinine Clearance 70 ml/min; Glucose 94 mg/dl (70-99); Potassium 3.5 mmol/L (3.5-5.1); Sodium 136 mmol/L (135-145); Total Protein 4.8 g/dl (6.3-8.2); eGFR > 60.00
[2025-01-04 07:00] VITALS: BP 111/64
[2025-01-04] MEDS: PROTONIX 40 MG PO (07:53)
[2025-01-04] MEDS: LOW STRENGTH ASPIRIN 81 MG PO (08:00)
[2025-01-04] MEDS: TOPROL XL PO (08:00)
[2025-01-04] MEDS: CYMBALTA DELAYED RELEASE 20 MG PO (08:00)
[2025-01-04] MEDS: ARICEPT 10 MG PO (08:01)
[2025-01-04] MEDS: ROXICODONE 10 MG PO ×3 (08:01→21:17)
[2025-01-04] MEDS: TOPROL XL 12.5 MG PO (09:18)
--- NOTE | 2025-01-04 11:37 | W.PN.HOSP.TC ---
Addendum entered and electronically signed by Erasto Randle MD 01/04/25 11:47:
#anemia
watch H&H
Original Note:
Today's Communication/Plan
-
Patient has improved ROM and less pain in LUE, cont unasyn pending MRI
Discussed with over the phone - cat still asymptomatic, no signs of disease, aggressiveness. advised to cont monitoring and let us know if any chnages
Assessment / Plan
Assessment / Plan
84yo M with PMRon Prednisone due to iatrogenic adrenal insufficiency, HTN, HLD, ASCVD came after being bitten by his cat, when he was trying to catch him since he ran outside. Cat is vaccinated. Developed pain and swelling at the place of bite on L
wrist that is rapidly resolving on Abx. ESR normal. XR showed Soft tissue swelling of the ventral distal forearm. No acute osseous abnormality initially, developed worsening swelling and redness of L forearm with swelling upon wrist joints
A/P:
#Cat byte
due to penicillin allergy - on Doxy/Flagyl on admision, however redness progressed, so switched to Unasyn - as per patient and - he had remote episode of rash with penicillin in his young age and as per chart review - tolerated other
beta-lactam - Cephalosporin - since then. With antibiotic failure, concern for spreading infection - reasonable trial of Unasyn started on 01/02/26 and patient tolerated without reaction
Probiotics
Leukocytosis cannot be reliable indicator of progression with Prednisone
Bcx NTD
CT LUE without abscess or tissue gas, no concern for bone involvement, however
skin redness with resolved swelling in forearm next day after Unasyn, will cont Abx
Ortho consult since US LUE that was done to r/o thrombosis noted Ovoid hypoechoic focus/complex fluid collection within the left wrist measuring 1.8 x 0.8 x 0.8 cm. MRI LUE pending as per ortho recommendations
S/P TD vaccine
Cat vaccinated and does not have symptoms of rabies - cont to monitor. No indication for ppx as per UpToDate unless cat becomes symptomatic
#Dementia with behavioral disturbances
sundowning in AM
QTc normal in 2023- start low dose Quetapine HS, Valium PRN
#CAD s/p PCI
#HLD
#Essential HTN
#PMR
#Iatrogenic adrenal insufficiency
cont home meds
DVT ppx SCDs
Full code
I have spent at least 53min reviewing chart, test results, communication with consultants and providing direct patient care
Anticipated Discharge: 24 - 48 hours
Subjective/Interval History
-
Date of Service: January 04, 2025
Objective Data
-
Labs:
Laboratory Results
01/04/25
05:42
WBC 7.2
Hgb 9.5 L
Hct 28.8 L
Plt Count 197
Sodium 136
Potassium 3.5
Chloride 107
Carbon Dioxide 26
BUN 10
Creatinine 0.6 L
Glucose 94
Calcium 8.4
Total Bilirubin 0.5
AST 16 L
ALT 15
Alkaline Phosphatase 48
Vital Signs:
Vital Signs
Temp Pulse Resp BP Pulse Ox
98.0 F 77 18 111/64 95
01/04/25 07:00 01/04/25 07:00 01/04/25 07:00 01/04/25 07:00 01/04/25 07:00
I&O
01/03/25 01/04/25 01/05/25
06:59 06:59 06:59
Intake Total 300 / 300 980 / 980
Output Total 240 / 240 100 / 100
Balance 60 / 60 880 / 880
Review of Systems
-
History Source: Patient
All other systems: Reviewed and negative
Physical Exam
-
General: No Apparent Distress
GI: Soft, Nontender and Nondistended
Skin: Other (minimal swelling on forearm, but wrist still swollen. Forearm redness resolved)
Neuro: Awake, Alert and Oriented
Psych: Apparent Dementia
--- NOTE | 2025-01-04 12:51 | W.PN.UPDATE ---
Update Note
Progress Note Update
The patient was seen and evaluated by Orthopedic surgery on AM rounds. He is resting in bed comfortably. at bedside. Overall, he reports that he is doing okay. He denies any constitutional symptoms. He appears to be making gradual progress
in the right direction. He reports improvement with swelling and pain. believes that his his clinical picture has also improved in comparison to yesterday. MRI is currently pending.
PE: physical examination of the left upper extremity reveals multiple cat bite/puncture wounds to the left wrist. There is also some gouty tophi noted about the radial aspect of the left wrist; patient reports that this is chronic. Wounds with
scabbing present. There is no obvious or expressible purulence about the puncture wounds. Mild improvement with erythema and edema. Mild tenderness to palpation over the radial aspect of the left wrist and forearm with some induration noted about
the left wrist/forearm; patient is able to tolerate palpation well without complaints. There is subcutaneous edema/pitting edema noted about the left upper extremity. There is no tenderness to palpation of the volar aspect of the left
hand/fingers. Skin wrinkles are present. APL and EPB grossly intact. He is able to demonstrate almost a complete composite fist without pain. He is able to tolerate active and passive range of motion of the left wrist without much discomfort;
improved from yesterday. Elbow range of motion is intact. Fingers are pink and warm. Capillary refill is less than 2 seconds. Sensations intact to light touch distally.
Plan:
1) Continue with IV Abx per primary team (IV Unasyn).
2) Continue with warm soaks TID for ~5-10 minutes.
3) Ice therapy and elevation for edema control. Pain control per primary team.
4) MRI ordered and pending. Will follow-up on MRI results upon completion.
5) Orthopedic surgery will continue to follow along.
[2025-01-04] MEDS: BUTRANS 1 PATCH TRANSDERM (13:14)
--- NOTE | 2025-01-04 14:33 | PTCARENOTE ---
Patient OOb to bathroom with assist. Patient is unsteady. Patient tolerated sitting in chair for 3hr. Patient continues to be confused, oriented to self only and sometimes place. Warm left hand soak was done, patient states, 'My hand feels better in
the warm water.' Patient c/o left hand pain only when touched. No c/o pain when resting hand. Swelling and redness improved. Spouse at bedside.
[2025-01-04 15:00] VITALS: BP 131/59
[2025-01-04] MEDS: LOVENOX 40 MG SC (17:58)
[2025-01-04] MEDS: LIPITOR 80 MG PO (17:58)
[2025-01-04] MEDS: SEROQUEL 25 MG PO (21:17)
[2025-01-04] MEDS: ROXICODONE 5 MG PO (21:18)
[2025-01-04 23:12] VITALS: BP 154/85
[2025-01-05] MEDS: VALIUM INJECTION 2 MG IV (00:37)
[2025-01-05] MEDS: UNASYN IV ×4 (03:03→20:43)
--- NOTE | 2025-01-05 05:29 | PTCARENOTE ---
Pt pleasantly confused t/o the night. Pt ambulatory to bathroom when needed. Pt anxious and restless at times, frequently attempting to get OOB setting bed alarm off. PRN medication administered as ordered. LUE red, warm, tender to touch, elevated
on pillows. Warm compress applied. bed alarm remains in place. Will continue to monitor.
[2025-01-05 06:00] LABS: Hematocrit 28.4 % (39.0-52.0); Hemoglobin 9.6 g/dL (13.0-18.0); Mean Corp Hgb Conc. 33.8 g/dL (33.0-37.0); Mean Corpuscular Volume 92.5 fL (80.0-94.0); Nucleated Red Blood Cells % 0 % (-); Platelet Count 217 10^3/uL (130-400); Red Cell Dist. Width 13.1 % (11.5-14.5)
[2025-01-05 06:27] LABS: ALT (SGPT) 22 U/L (0-50); AST (SGOT) 26 U/L (17-59); Albumin 2.8 g/dl (3.5-5.0); Alkaline Phosphatase 47 U/L (38-126); Blood Urea Nitrogen 8 mg/dl (9-20); Calcium 8.6 mg/dl (8.4-10.2); Carbon Dioxide 27 mmol/L (22-30); Chloride 107 mmol/L (98-107); Estimated Creatinine Clearance 70 ml/min; Glucose 97 mg/dl (70-99); Potassium 3.7 mmol/L (3.5-5.1); Sodium 137 mmol/L (135-145); Total Protein 4.9 g/dl (6.3-8.2); eGFR > 60.00
[2025-01-05 07:00] VITALS: BP 112/69
--- NOTE | 2025-01-05 07:34 | W.PN.UPDATE ---
Update Note
Progress Note Update
Mr. Murillo is resting in bed comfortably this morning. He reports he is doing well overall this morning. He endorses a small amount of improvement overnight, but continues with pain, primarily over the volar aspect of his wrist. He denies any
constitutional symptoms.
PE: physical examination of the left upper extremity reveals multiple cat bite/puncture wounds to the left wrist, no active drainage or purulence able to be expressed. There is also some gouty tophi noted about the radial aspect of the left wrist;
patient reports that this is chronic. Wounds with scabbing present. Mild improvement with erythema and edema. Mild tenderness to palpation over the radial and voalr aspect of the left wrist and forearm. Small amount of induration volarly. Mild
tenderness over the volar aspect of the wrist. APL and EPB grossly intact. He is able to demonstrate almost a complete composite fist without pain. He is able to tolerate active and passive range of motion of the left wrist without much
discomfort; improved from yesterday. Elbow range of motion is intact. Fingers are pink and warm. Capillary refill is less than 2 seconds. Sensations intact to light touch distally.
Plan:
1) Continue with IV Abx per primary team (IV Unasyn).
2) Continue with warm soaks TID for ~5-10 minutes.
3) Ice therapy and elevation for edema control. Pain control per primary team.
4) MRI ordered and pending. Will follow-up on MRI results upon completion.
5) Orthopedic surgery will continue to follow along.
[2025-01-05] MEDS: ARICEPT 10 MG PO (07:52)
[2025-01-05] MEDS: LOW STRENGTH ASPIRIN 81 MG PO (07:52)
[2025-01-05] MEDS: ROXICODONE 10 MG PO ×3 (07:52→20:43)
[2025-01-05] MEDS: PROTONIX 40 MG PO (07:52)
[2025-01-05] MEDS: CYMBALTA DELAYED RELEASE 20 MG PO (07:52)
[2025-01-05] MEDS: TOPROL XL 12.5 MG PO (07:52)
--- NOTE | 2025-01-05 13:48 | W.PN.HOSP.TC ---
Today's Communication/Plan
-
MRI of left arm pending
Continue antibiotics
Assessment / Plan
Assessment / Plan
84yo M with PMR on Prednisone due to iatrogenic adrenal insufficiency, HTN, HLD, ASCVD came after being bitten by his cat, when he was trying to catch him since he ran outside. Cat is vaccinated. Developed pain and swelling at the place of bite on
L wrist that is rapidly resolving on Abx. ESR normal. XR showed Soft tissue swelling of the ventral distal forearm. No acute osseous abnormality initially, developed worsening swelling and redness of L forearm with swelling upon wrist joints
A/P:
Cat bite left hand
CT LUE without abscess or tissue gas, no concern for bone involvement
Cellulitis improving on Unasyn, continue
Orthopedic surgery consulted
MRI pending due to fluid collection
S/P TD vaccine
Cat vaccinated and does not have symptoms of rabies - cont to monitor. No indication for ppx as per UpToDate unless cat becomes symptomatic
Dementia with behavioral disturbances
sundowning in AM
low dose Quetapine HS, Valium PRN
#CAD s/p PCI
#HLD
#Essential HTN - BP controlled
#PMR
#Iatrogenic adrenal insufficiency
cont home meds
DVT ppx - Lovenox
Full code
I have spent at least 53min reviewing chart, test results, communication with consultants and providing direct patient care
Anticipated Discharge: 24 - 48 hours
Subjective/Interval History
-
Date of Service: January 05, 2025
Patient reports there is tenderness in his hand but it feels better overall
Objective Data
-
Labs:
Laboratory Results
01/05/25
05:29
WBC 6.3
Hgb 9.6 L
Hct 28.4 L
Plt Count 217
Sodium 137
Potassium 3.7
Chloride 107
Carbon Dioxide 27
BUN 8 L
Creatinine 0.5 L
Glucose 97
Calcium 8.6
Total Bilirubin 0.4
AST 26
ALT 22
Alkaline Phosphatase 47
Vital Signs:
Vital Signs
Temp Pulse Resp BP Pulse Ox
98.8 F 93 16 112/69 96
01/05/25 07:00 01/05/25 07:00 01/05/25 07:00 01/05/25 07:00 01/05/25 07:00
I&O
01/04/25 01/05/25 01/06/25
06:59 06:59 06:59
Intake Total 980 / 980 1080 / 1080
Output Total 100 / 100
Balance 880 / 880 1080 / 1080
Review of Systems
-
All other systems: Reviewed and negative
Physical Exam
-
General: No Apparent Distress
HEENT: Moist Mucous Membranes, Anicteric and PERRLA
Respiratory: Clear to Auscultation; Negative Wheezes, Rales or Rhonchi
Cardiac: Regular Rhythm and S1/S2; Negative Murmur, Rub or Gallop
GI: Soft, Nontender, Nondistended and Normal Bowel Sounds
Musculoskeletal: No Edema
Skin: Warm, Dry and Lesions (left hand puncture wounds non draining, +eryethma +tenderness +mild edema)
Neuro: Awake and AO x 3
Hematologic / Lymphatic: No Lymphadenopathy
Psych: Calm
Data Reviewed
-
Labs: Labs Reviewed by me and Discussed with Patient
Old Records: Reviewed
[2025-01-05 15:49] VITALS: BP 108/62
[2025-01-05] MEDS: LOVENOX 40 MG SC (18:41)
[2025-01-05] MEDS: LIPITOR 80 MG PO (18:42)
[2025-01-05] MEDS: ROXICODONE 5 MG PO ×2 (20:43→22:34)
[2025-01-05] MEDS: SEROQUEL 25 MG PO (20:43)
[2025-01-05 23:00] VITALS: BP 87/59
[2025-01-06 01:05] VITALS: BP 103/58
--- NOTE | 2025-01-06 02:54 | PTCARENOTE ---
MRI called, RN and pct transferred patient to MRI at this time. Will transfer back to upon MRI completion.
[2025-01-06] MEDS: UNASYN IV ×4 (03:33→21:26)
[2025-01-06] MEDS: TYLENOL 650 MG PO ×2 (06:09→20:06)
--- NOTE | 2025-01-06 07:44 | W.PN.UPDATE ---
Update Note
Progress Note Update
Mr. Murillo is resting in bed comfortably this morning. He reports he is doing well overall this morning, and states his symptoms have continued to improve since yesterday. He denies any constitutional symptoms.
PE: physical examination of the left upper extremity reveals multiple cat bite/puncture wounds to the left wrist, no active drainage or purulence able to be expressed. There is also some gouty tophi noted about the radial aspect of the left wrist;
patient reports that this is chronic. Continues improvement with erythema and edema. There does feel to be a possible small collection overlying the volar aspect of the distal radius. This is mildly tender to touch. He is able to perform ROM of his
wrist without discomfort, improved from yesterday. Elbow range of motion is intact. Fingers are pink and warm. Capillary refill is less than 2 seconds. Sensations intact to light touch distally.
Plan:
--Dr. Powell will be coming around this morning to assess patient. MRI completed, report pending.
--Continue with IV Abx per primary team (IV Unasyn).
--Continue with warm soaks TID for ~5-10 minutes.
--Ice therapy and elevation for edema control. Pain control per primary team.
--Orthopedic surgery will continue to follow along
[2025-01-06 07:56] VITALS: BP 114/66
[2025-01-06] MEDS: ARICEPT 10 MG PO (08:16)
[2025-01-06] MEDS: CYMBALTA DELAYED RELEASE 20 MG PO (08:16)
[2025-01-06] MEDS: LOW STRENGTH ASPIRIN 81 MG PO (08:16)
[2025-01-06] MEDS: PROTONIX 40 MG PO (08:16)
[2025-01-06] MEDS: ROXICODONE 10 MG PO ×3 (08:16→21:13)
[2025-01-06] MEDS: TOPROL XL 12.5 MG PO (08:16)
--- NOTE | 2025-01-06 09:28 | W.PN.HOSP.TC ---
Today's Communication/Plan
-
N.p.o. after midnight for possible surgery tomorrow
Assessment / Plan
Assessment / Plan
84yo M with PMR on Prednisone due to iatrogenic adrenal insufficiency, HTN, HLD, ASCVD came after being bitten by his cat, when he was trying to catch him since he ran outside. Cat is vaccinated. Developed pain and swelling at the place of bite on
L wrist that is rapidly resolving on Abx. ESR normal. XR showed Soft tissue swelling of the ventral distal forearm. No acute osseous abnormality initially, developed worsening swelling and redness of L forearm with swelling upon wrist joints
A/P:
Cat bite left hand
-Cat vaccinated and does not have symptoms of rabies - cont to monitor. No indication for ppx as per UpToDate unless cat becomes symptomatic
-Status post Tdap vaccine
-CT LUE without abscess or tissue gas, no concern for bone involvement
-MRI LUE shows phlegmon/abscess, tenosynovitis
-Continue IV Unasyn, pain meds, for possible OR tomorrow with orthopedic surgery
Dementia with behavioral disturbances
- in AM
-Continue low dose Quetapine HS, Valium PRN
#CAD s/p PCI
#HLD
#Essential HTN - BP controlled
#PMR
#Iatrogenic adrenal insufficiency
Continue home meds
DVT ppx - SQ Lovenox
Full code
Total time spent to see the patient on the floor, examine the patient, review data and lab results, discuss treatment plan with patient, nursing staff around 37 minutes.
Physical Exam
General: No acute distress
HEENT: Normocephalic, Atraumatic, EOMI, MMM
Respiratory: Clear to Auscultation bilaterally
Cardiac: Normal S1/S2, Regular Rate and Rhythm
GI: Soft, Nontender, Nondistended, Normal Bowel Sounds
Extremities: No Clubbing, Cyanosis
Erythema, tenderness, fluctuance on left wrist
Neuro: Pleasantly confused
Psych: Calm, Cooperative
Anticipated Discharge: > 48 hours
Subjective/Interval History
-
Date of Service: January 06, 2025
Patient complains of left wrist pain. Denies chest pain, denies shortness of breath. No fever, no vomiting.
Objective Data
-
Vital Signs:
Vital Signs
Temp Pulse Resp BP Pulse Ox
97.6 F 75 14 114/66 96
01/06/25 07:56 01/06/25 07:56 01/06/25 07:56 01/06/25 07:56 01/06/25 07:56
I&O
01/05/25 01/06/25 01/07/25
06:59 06:59 06:59
Intake Total 1080 / 1080 1080 / 1080 240 / 240
Balance 1080 / 1080 1080 / 1080 240 / 240
[2025-01-06 15:11] VITALS: BP 108/52
[2025-01-06] MEDS: LOVENOX 40 MG SC (18:14)
[2025-01-06] MEDS: LIPITOR 80 MG PO (18:14)
[2025-01-06] MEDS: SEROQUEL 25 MG PO (21:13)
[2025-01-06] MEDS: ROXICODONE 5 MG PO ×2 (21:13→23:51)
[2025-01-06] MEDS: VALIUM INJECTION 2 MG IV (22:05)
[2025-01-06 23:09] VITALS: BP 121/59
[2025-01-07] VITALS (13 sets, daily range): BP systolic 95–148; BP diastolic 47–89
[2025-01-07] MEDS: UNASYN IV ×4 (05:04→21:08)
--- NOTE | 2025-01-07 05:23 | PTCARENOTE ---
around 2100, pt agitated, pushed staff and stated 'I am leaving and you cannot make me stay'. Pt threatening staff and said 'I know [address] to kill you without making a sound'. RELAYS DRAFTSPERSON notified, restraints ordered. Restraints never placed on pt. Male
RN was able to calm pt down, walk him to bathroom and put him back in bed. This RN was able to give pt his scheduled oxy and Seroquel (see MAR).
Pt still agitated after meds and repeatedly saying he is going to leave. PRN IV valium given (see MAR). Bed alarm in place and call leahy within reach. Plan of care ongoing.
--- NOTE | 2025-01-07 07:59 | W.PN.UPDATE ---
Update Note
Progress Note Update
Patient's left hand erythema and fluid collection along the volar aspect of the wrist continues so recommend left wrist I&D later today with Dr. Powell. He will remain n.p.o. for now. Surgical location was marked. I did have an opportunity to speak
to his Birdie Murillo who agreed to surgery due to patient's dementia. It would witnessed by his nurse Caroline.
[2025-01-07] MEDS: PROTONIX 40 MG PO (08:23)
[2025-01-07] MEDS: ARICEPT 10 MG PO (08:23)
[2025-01-07] MEDS: ROXICODONE 10 MG PO ×3 (08:23→21:08)
[2025-01-07] MEDS: CYMBALTA DELAYED RELEASE 20 MG PO (08:23)
[2025-01-07] MEDS: TOPROL XL 12.5 MG PO (08:23)
[2025-01-07] MEDS: LOW STRENGTH ASPIRIN 81 MG PO (08:23)
--- NOTE | 2025-01-07 09:45 | PTCARENOTE ---
Report provided to marvin hernandez RN.
[2025-01-07] MEDS: SUBLIMAZE 50 MCG IV ×2 (13:41→13:58)
--- NOTE | 2025-01-07 15:03 | W.PN.HOSP.TC ---
Today's Communication/Plan
-
see bold
Assessment / Plan
Assessment / Plan
84yo M with PMR on Prednisone due to iatrogenic adrenal insufficiency, HTN, HLD, ASCVD came after being bitten by his cat, when he was trying to catch him since he ran outside. Cat is vaccinated. Developed pain and swelling at the place of bite on
L wrist that is rapidly resolving on Abx. ESR normal. XR showed Soft tissue swelling of the ventral distal forearm. No acute osseous abnormality initially, developed worsening swelling and redness of L forearm with swelling upon wrist joints
A/P:
Cat bite left hand with cellulitis and abscess formation
-Cat vaccinated and does not have symptoms of rabies - cont to monitor. No indication for ppx as per UpToDate unless cat becomes symptomatic
-Status post Tdap vaccine
-CT LUE without abscess or tissue gas, no concern for bone involvement
-MRI LUE shows phlegmon/abscess, tenosynovitis
- Appreciate orthopedic surgery input, status post I&D of left wrist 01/07
- Continue IV Unasyn, follow-up in OR cultures
Dementia with behavioral disturbances
- in AM
-Continue low dose Quetapine HS, Valium PRN
#CAD s/p PCI
#HLD
#Essential HTN - BP controlled
#PMR
#Iatrogenic adrenal insufficiency
Continue home meds
DVT ppx - SQ Lovenox
Full code
Total time spent to see the patient on the floor, examine the patient, review data and lab results, discuss treatment plan with patient, nursing staff around 39 minutes.
Physical Exam
General: No acute distress
HEENT: Normocephalic, Atraumatic, EOMI, MMM
Respiratory: Clear to Auscultation bilaterally
Cardiac: Normal S1/S2, Regular Rate and Rhythm
GI: Soft, Nontender, Nondistended, Normal Bowel Sounds
Extremities: No Clubbing, Cyanosis
Left wrist dressed
Neuro: Pleasantly confused
Psych: Calm, Cooperative
Anticipated Discharge: 24 - 48 hours
Subjective/Interval History
-
Date of Service: January 07, 2025
Patient complains of diffuse joint pain from his arthritis. No chest pain, no shortness of breath. No fever, no vomiting.
Objective Data
-
Vital Signs:
Vital Signs
Temp Pulse Resp BP Pulse Ox
98.5 F 70 14 121/59 100
01/06/25 23:09 01/06/25 23:09 01/06/25 23:09 01/06/25 23:09 01/06/25 23:09
I&O
01/06/25 01/07/25 01/08/25
06:59 06:59 06:59
Intake Total 1080 / 1080 940 / 940 480 / 480
Balance 1080 / 1080 940 / 940 480 / 480
--- NOTE | 2025-01-07 16:14 | CM ---
CM following for discharge planning. Pt has been aggitated and threatening off and on; pt was able to be calmed, valium given, and pt returned to bed with bed alarm and call leahy.
Plan: D/C home with VN, watch for increased needs s/p aggitation.
[2025-01-07] MEDS: LOVENOX 40 MG SC (17:16)
[2025-01-07] MEDS: LIPITOR 80 MG PO (17:17)
[2025-01-07] MEDS: ROXICODONE 5 MG PO (21:08)
[2025-01-07] MEDS: SEROQUEL 25 MG PO (21:08)
[2025-01-07] MEDS: VALIUM INJECTION 2 MG IV (23:49)
[2025-01-08] VITALS (7 sets, daily range): BP systolic 110–147; BP diastolic 54–78; PULSE 83; O2SAT 97
--- NOTE | 2025-01-08 00:41 | W.PN.UPDATE ---
Update Note
Progress Note Update
~00:30 Arrived on floor, patient getting aggressive, trying to leave room, states that is waiting for him at home and his car is outside. He can drive home. Patient swinging at staff. Patient assisted back to bed, security called, attempted to
use calm manner, re-orient and reason with patient, patient remained aggressive, saying he was going to use karate on staff and he is going to shoot staff, security in room, patient remained aggressive put in restraints. Haldol given.
~2 am, patient yelling out that he is having a heart attack, EKG done preliminary read SR w/1st degree AV block w/occasional PVC's, HR 95.
BP 115/78 HR 110, Patient refusing complete set of vital signs and refusing labs. Patient is very confused, wants to go home. Then states 'I have no chest pain, whats going on here?' Tried to re-orient, patient remains confused, restraints in place.
Patient calmer when no one in room, observing from marshall. Continue to monitor for safety, RN to notify of any changes.
[2025-01-08] MEDS: HALDOL 0.5 MG IV (00:52)
--- NOTE | 2025-01-08 01:10 | PTCARENOTE ---
RAD BOOKER called on pt for escalating behavior. Pt has been getting increasingly restless throughout this shift, setting off bed alarm frequently, attempting to leave the hospital. Walked the halls with pt, had multiple lengthy conversations about
his family life, went to the bathroom, got daniel marilou, etc. IV valium adminstered per PRN order. When pt tried to leave his room after a walk in the marshall, pt became agitated and started shouting at staff. He has stated mutliple times that he has a
[facility] Security called. House Provider, Alanis Mi, at bedside. Pt initially placed in b/l LE soft wrist, RUE soft wrist, and L mitt restraints. Pt easily able to get mitt off and threatening to swing his arm at
staff. Placed LUE soft wrist restraint. IV haldol administered. Will continue to monitor.
--- NOTE | 2025-01-08 02:08 | PTCARENOTE ---
Pt in bed yelling 'I'm having a heart attack'. BP and HR obtained and House Provider notified. EKG obtained and House Provider at bedside to read it. Troponin ordered but pt refusing blood draw. Educated pt that the blood test would show if he was
having a heart attack or not and pt again refused.
[2025-01-08] MEDS: ROXICODONE 5 MG PO ×2 (02:47→21:02)
[2025-01-08] MEDS: UNASYN IV ×4 (03:21→21:02)
[2025-01-08 06:02] LABS: Hematocrit 29.1 % (39.0-52.0); Hemoglobin 10.0 g/dL (13.0-18.0); Mean Corp Hgb Conc. 34.4 g/dL (33.0-37.0); Mean Corpuscular Volume 89.8 fL (80.0-94.0); Platelet Count 309 10^3/uL (130-400); Red Cell Dist. Width 12.6 % (11.5-14.5)
[2025-01-08 06:24] LABS: Troponin I < 0.012 ng/ml
[2025-01-08 07:16] LABS: Blood Urea Nitrogen 11 mg/dl (9-20); Calcium 8.6 mg/dl (8.4-10.2); Carbon Dioxide 24 mmol/L (22-30); Chloride 107 mmol/L (98-107); Estimated Creatinine Clearance 70 ml/min; Glucose 112 mg/dl (70-99); Potassium 3.8 mmol/L (3.5-5.1); Sodium 136 mmol/L (135-145); eGFR > 60.00
[2025-01-08] MEDS: PROTONIX 40 MG PO (07:44)
[2025-01-08] MEDS: ARICEPT 10 MG PO (07:44)
[2025-01-08] MEDS: ROXICODONE 10 MG PO ×3 (07:44→21:02)
[2025-01-08] MEDS: CYMBALTA DELAYED RELEASE 20 MG PO (07:44)
[2025-01-08] MEDS: LOW STRENGTH ASPIRIN 81 MG PO (07:44)
[2025-01-08] MEDS: TOPROL XL 12.5 MG PO (07:44)
--- NOTE | 2025-01-08 08:07 | W.PN.ORTHO ---
Today's Communication / Plan
-
Keep splint in place
Ice and elevate to control swelling and pain
Antibiotics per medical team
Cultures pending
Orthopedics will continue to follow
Assessment
.
Distal Motor Intact: Yes
Dressing:
Splint in place-Clean, dry and intact.
Plan
.
Surgery / Date: L wrist I & D 01/07 [place]
DVT Prophylaxis: Aspirin
Activity:
Out of bed.
PT/OT
Subjective
.
.:
Patient resting comfortably.
Vital Signs and Labs
.
Vital Signs and Labs:
Lab Results
01/08/25 05:50
01/08/25 05:50
Temp Pulse Resp BP Pulse Ox
97.3 F 78 18 145/65 99
01/08/25 07:00 01/08/25 07:44 01/08/25 07:00 01/08/25 07:44 01/08/25 07:00
--- NOTE | 2025-01-08 09:01 | W.PN.HOSP.TC ---
Today's Communication/Plan
-
see bold
Assessment / Plan
Assessment / Plan
84yo M with PMR on Prednisone due to iatrogenic adrenal insufficiency, HTN, HLD, ASCVD came after being bitten by his cat, when he was trying to catch him since he ran outside. Cat is vaccinated. Developed pain and swelling at the place of bite on
L wrist that is rapidly resolving on Abx. ESR normal. XR showed Soft tissue swelling of the ventral distal forearm. No acute osseous abnormality initially, developed worsening swelling and redness of L forearm with swelling upon wrist joints
A/P:
Cat bite left hand with cellulitis and abscess formation
-Cat vaccinated and does not have symptoms of rabies - cont to monitor. No indication for ppx as per UpToDate unless cat becomes symptomatic
-Status post Tdap vaccine
-CT LUE without abscess or tissue gas, no concern for bone involvement
-MRI LUE shows phlegmon/abscess, tenosynovitis
- Appreciate orthopedic surgery input, status post I&D of left wrist by Dr. Powell on 01/07
- Keep splint in place, ice and elevation
- Continue IV Unasyn, follow-up in OR cultures
Dementia with behavioral disturbances
- intermittently
-Continue low dose Quetapine HS, Valium PRN
#CAD s/p PCI
#HLD
#Essential HTN - BP controlled
#PMR
#Iatrogenic adrenal insufficiency
Continue home meds
DVT ppx - SQ Lovenox
Full code
Total time spent to see the patient on the floor, examine the patient, review data and lab results, discuss treatment plan with patient, nursing staff around 38 minutes.
Physical Exam
General: No acute distress
HEENT: Normocephalic, Atraumatic, EOMI, MMM
Respiratory: Clear to Auscultation bilaterally
Cardiac: Normal S1/S2, Regular Rate and Rhythm
GI: Soft, Nontender, Nondistended, Normal Bowel Sounds
Extremities: No Clubbing, Cyanosis
Left wrist splinted
Neuro: Pleasantly confused
Psych: Calm, Cooperative
Anticipated Discharge: 24 - 48 hours
Subjective/Interval History
-
Date of Service: January 08, 2025
Overnight events noted, patient was agitated and confused last night. He is currently calm.
Patient complains of diffuse pain from arthritis. Reports his left wrist pain is tolerable. No fever, no vomiting.
Objective Data
-
Labs:
Laboratory Results
01/08/25
05:50
WBC 8.4
Hgb 10.0 L
Hct 29.1 L
Plt Count 309 D
Sodium 136
Potassium 3.8
Chloride 107
Carbon Dioxide 24
BUN 11
Creatinine 0.5 L
Glucose 112 H
Calcium 8.6
Vital Signs:
Vital Signs
Temp Pulse Resp BP Pulse Ox
97.3 F 78 18 145/65 99
01/08/25 07:00 01/08/25 07:44 01/08/25 07:00 01/08/25 07:44 01/08/25 07:00
I&O
01/07/25 01/08/25 01/09/25
06:59 06:59 06:59
Intake Total 940 / 940 1590 / 1590
Output Total 875 / 875
Balance 940 / 940 715 / 715
--- NOTE | 2025-01-08 16:55 | WOUNDNOTE ---
WOC RN NOTE: Consult ordered by Dr. Louis for left wrist wound. Per chart review ortho following for all needs. Dr. Louis aware and gave verbal order to this machine sign writer to cancel consult.
[2025-01-08] MEDS: LIPITOR 80 MG PO (17:13)
[2025-01-08] MEDS: LOVENOX 40 MG SC (17:13)
[2025-01-08] MEDS: SEROQUEL 25 MG PO (21:02)
[2025-01-08] MEDS: VALIUM INJECTION 2 MG IV (22:09)
[2025-01-09] MEDS: UNASYN IV ×2 (04:06→09:41)
[2025-01-09 06:46] LABS: Hematocrit 29.5 % (39.0-52.0); Hemoglobin 9.8 g/dL (13.0-18.0); Mean Corp Hgb Conc. 33.2 g/dL (33.0-37.0); Mean Corpuscular Volume 91.0 fL (80.0-94.0); Platelet Count 363 10^3/uL (130-400); Red Cell Dist. Width 12.9 % (11.5-14.5)
[2025-01-09] MEDS: PROTONIX 40 MG PO (07:27)
[2025-01-09] MEDS: TOPROL XL 12.5 MG PO (07:27)
[2025-01-09] MEDS: ROXICODONE 10 MG PO ×2 (07:27→15:29)
[2025-01-09] MEDS: ARICEPT 10 MG PO (07:27)
[2025-01-09] MEDS: LOW STRENGTH ASPIRIN 81 MG PO (07:27)
[2025-01-09 07:47] VITALS: BP 150/81
[2025-01-09] MEDS: CYMBALTA DELAYED RELEASE 20 MG PO (08:13)
--- NOTE | 2025-01-09 08:32 | W.PN.UPDATE ---
Update Note
Progress Note Update
Mr. Murillo is POD2 following his left wrist I&D for cat bite performed by Dr. Powell. He is resting comfortably in bed this morning. He denies any pain in the wrist or hand today. He has no questions or concerns at this time.
Directed exam of the left upper extremity reveals surgical incision well approximated with sutures. Hue of erythema about the volar aspect of the wrist. No collections or fluctuance. Mild tenderness about the incision. Expected stiffness with wrist
ROM, but this is essentially non-painful. Patient able to make composite fist and fully extend fingers. Sensation intact to light touch. Capillary refill <2 seconds.
Preliminary gram stain from OR culture with many WBC, no organisms.
84 yo M POD2 following his left wrist I&D under the direction of Dr. Powell
--Splint was removed this morning, and soft dressing was placed. Recommend warm compresses daily with daily dressing changes.
--Continue to follow culture from OR. Abx per primary/ID, current Unasyn.
--May perform gentle ROM of wrist and hand as tolerated. Limit weight bearing to left upper extremity to allow soft tissue healing.
--Orthopedics will continue to follow along.
--- NOTE | 2025-01-09 14:52 | W.PN.HOSP.TC ---
Today's Communication/Plan
-
Discharge today on Augmentin
Assessment / Plan
Assessment / Plan
84yo M with PMR on Prednisone due to iatrogenic adrenal insufficiency, HTN, HLD, ASCVD came after being bitten by his cat, when he was trying to catch him since he ran outside. Cat is vaccinated. Developed pain and swelling at the place of bite on
L wrist that is rapidly resolving on Abx. ESR normal. XR showed Soft tissue swelling of the ventral distal forearm. No acute osseous abnormality initially, developed worsening swelling and redness of L forearm with swelling upon wrist joints
A/P:
Cat bite left hand with cellulitis and abscess formation
-Cat vaccinated and does not have symptoms of rabies - cont to monitor. No indication for ppx as per UpToDate unless cat becomes symptomatic
-Status post Tdap vaccine
-CT LUE without abscess or tissue gas, no concern for bone involvement
-MRI LUE shows phlegmon/abscess, tenosynovitis
- Appreciate orthopedic surgery input, status post I&D of left wrist by Dr. Powell on 01/07
- Keep splint in place, ice and elevation
- Currently on IV Unasyn, wound cultures negative for 48 hours
- Medically stable for discharge on Augmentin to complete a 14-day course, follow-up with PCP in 1 week, and Dr. Powell in 2 weeks
Dementia with behavioral disturbances
- intermittently
-Continue low dose Quetapine HS, Valium PRN
#CAD s/p PCI
#HLD
#Essential HTN - BP controlled
#PMR
#Iatrogenic adrenal insufficiency
Continue home meds
DVT ppx - SQ Lovenox
Full code
Updated on phone 01/09
Physical Exam
General: No acute distress
HEENT: Normocephalic, Atraumatic, EOMI, MMM
Respiratory: Clear to Auscultation bilaterally
Cardiac: Normal S1/S2, Regular Rate and Rhythm
GI: Soft, Nontender, Nondistended, Normal Bowel Sounds
Extremities: No Clubbing, Cyanosis
Left wrist dressed
Neuro: Pleasantly confused
Psych: Calm, Cooperative
Anticipated Discharge: Today
Subjective/Interval History
-
Date of Service: January 09, 2025
No acute events. Patient has chronic pain. Denies chest pain, denies shortness of breath. No fever, no vomiting.
Objective Data
-
Labs:
Laboratory Results
01/09/25
05:44
WBC 7.7
Hgb 9.8 L
Hct 29.5 L
Plt Count 363
Vital Signs:
Vital Signs
Temp Pulse Resp BP Pulse Ox
98.1 F 68 14 150/81 98
01/09/25 07:47 01/09/25 07:47 01/09/25 07:47 01/09/25 07:47 01/09/25 07:47
I&O
01/08/25 01/09/25 01/10/25
06:59 06:59 06:59
Intake Total 1590 / 1590 680 / 680
Output Total 875 / 875
Balance 715 / 715 680 / 680
--- NOTE | 2025-01-09 14:55 | W.DCSUMMARY ---
Discharge Summary
Discharge Data
Date of Admission: 01/02/25
Date of Discharge: 01/09/25
-
Pending Results: No
Hospital Course
Discharge diagnosis:
Cat bite left hand with cellulitis and abscess formation
Dementia with behavioral disturbances
Coronary artery disease
Hyperlipidemia
Essential hypertension
Iatrogenic adrenal insufficiency
Polymyalgia rheumatica
LUE MRI:
Marked subcutaneous edema about the wrist in keeping with cellulitis. There is phlegmon/developing abscess within the radial volar superficial subcutaneous tissues measuring approximately 1.6 x 1.0 x 1.7 cm.
Mild tenosynovitis of the second through fourth extensor compartments, favored aseptic.
Advanced degenerative changes throughout the wrist. No overt MR evidence for septic arthritis or osteomyelitis.
Consults: Orthopedic surgery
Procedures:
01/07/2025 left wrist incision and debridement
Hospital course:
84-year-old male with a past medical history of dementia, CAD, hyperlipidemia, iatrogenic adrenal insufficiency, and polymyalgia rheumatica who was admitted for a cat bite on his left wrist with cellulitis and abscess formation. He was treated with
IV Unasyn. He was seen in conjunction with orthopedic surgery. Left upper extremity MRI confirmed the presence of an abscess. He underwent left wrist incision and debridement on 01/07/2025. He did well postoperatively. Intraoperative wound
cultures were negative for 48 hours. He is medically stable for discharge on Augmentin to complete a 14-day course. He needs to follow-up with his PCP in 1 week, as well as orthopedic surgery in 2 weeks.
Disposition: Home with home care
Discharge planning: Required 37 minutes
Discharge Plan
-
Patient Disposition: Home with Home Care
Discharge Diagnosis/Procedures: Cat bite infection with abscess-status post incision and drainage by Dr. Marvin Powell
Condition: Fair
Diet: Low Fat and Low Cholesterol
Activity: As tolerated
Driving Restrictions: No driving
Wound Care: Left wrist incision clean with alcohol or betadine once daily, light dressing and warm compress 15 min 2-3 times per day
Activity Restrictions/Additional Instructions:
Please follow-up with your primary care provider in 1 week, and orthopedic surgery in the office in 2 weeks.
Call for an appointment.
Referrals:
Marvin Powell MD [Active, Orthopedics] - in two weeks
UNKNOWN - PT DOES,NOT KNOW [Family Provider]
Prescriptions:
New
pantoprazole 40 mg Tablet,Delayed Release (Dr/Ec)
40 mg PO DAILY Qty: 0 0RF
amoxicillin-pot clavulanate 875-125 mg Tablet
1 tab PO Q12 7 Days Qty: 14 0RF
Continued
donepezil 10 MG tablet
10 mg PO DAILY
prednisone 1 MG tablet
3 mg PO DAILY
Patient Comments:
DOES NOT TAKE
atorvastatin 80 mg Tablet
80 mg PO QPM Qty: 30 11RF
aspirin 81 mg tablet,chewable
81 mg PO DAILY Qty: 30 11RF
metoprolol tartrate 25 mg Tablet
25 mg PO BID Qty: 60 11RF
furosemide [Lasix] 20 mg tablet
20 mg PO DAILY PRN (Reason: Weight gain) Qty: 30 0RF
Patient Comments:
DOES NOT TAKE
Rx Instructions:
For weight gain 3 lb in 24 hours or 5lb weight gain in 1 week
buprenorphine 10 mcg/hour Patch Weekly
1 patch TRANSDERMAL Q7D
Discontinued
doxycycline hyclate 100 mg Capsule
100 mg PO Q12 Qty: 6 0RF
Rx Instructions:
Last dose 11/23 eveing
Discharge Orders:
Discharge Patient (As Directed); Ordered 01/09/25
Ordered By: Clint Louis
Discharge Date and Time
Discharge Date/Time: 01/09/25 16:31
Print Language: WOLOF
[2025-01-09 15:11] VITALS: BP 136/67
[2025-01-09] MEDS: AUGMENTIN 875 MG/125 MG 1 TABLET PO (15:29)
== END 2025-01-09 16:31 | disposition home health service (06) | DRG 501 ==
LOC: 3 WEST ACU 07:24
PROVIDERS: Internal Medicine; Nurse Practitioner Family; Nurse Practitioner Gerontology; Orthopaedic Surgery; Student in an Organized Health Care Education/Training Program; ADMITTING PHYSICIAN Internal Medicine; ATTENDING PHYSICIAN Family Medicine; CONSULT PHYSICIAN Specialist; EMERGENCY PHYSICIAN Emergency Medicine
PROC: 3E0234Z Introduction of Serum, Toxoid and Vaccine into Muscle, Percutaneous Approach (ICD-10-PCS; 2025-01-03)
PROC: 0LB60ZZ Excision of Left Lower Arm and Wrist Tendon, Open Approach (ICD-10-PCS; 2025-01-07)
DX: M65.132 Other infective (teno)synovitis, left wrist (principal); E27.3 Drug-induced adrenocortical insufficiency; L03.114 Cellulitis of left upper limb; F03.A18 Unspecified dementia, mild, with other behavioral disturbance; F03.A4 Unspecified dementia, mild, with anxiety; F03.A11 Unspecified dementia, mild, with agitation; F05 Delirium due to known physiological condition; E46 Unspecified protein-calorie malnutrition; Z68.1 Body mass index [BMI] 19.9 or less, adult; L02.414 Cutaneous abscess of left upper limb; S61.552A Open bite of left wrist, initial encounter; W55.01XA Bitten by cat, initial encounter; I25.10 Atherosclerotic heart disease of native coronary artery without angina pectoris; I10 Essential (primary) hypertension; J44.9 Chronic obstructive pulmonary disease, unspecified; M19.90 Unspecified osteoarthritis, unspecified site; E78.00 Pure hypercholesterolemia, unspecified; M35.3 Polymyalgia rheumatica; K21.9 Gastro-esophageal reflux disease without esophagitis; M48.00 Spinal stenosis, site unspecified; N40.0 Benign prostatic hyperplasia without lower urinary tract symptoms; Z96.642 Presence of left artificial hip joint; M1A.9XX1 Chronic gout, unspecified, with tophus (tophi); D64.9 Anemia, unspecified; R30.0 Dysuria; I44.0 Atrioventricular block, first degree; I49.3 Ventricular premature depolarization; Z87.891 Personal history of nicotine dependence; I25.2 Old myocardial infarction; Z79.52 Long term (current) use of systemic steroids; Z79.82 Long term (current) use of aspirin; Z95.5 Presence of coronary angioplasty implant and graft; Z88.0 Allergy status to penicillin; Z23 Encounter for immunization
CPT/HCPCS: 73090; 73201; 73223; 80048; 80053; 81003; 81015; 84484; 85025; 85027; 85652; 86140; 87040; 87070; 87075; 87086; 87205; 90714; 93005; 93971; 96365; 96375; 97162; 99284; J2358; Q9967

== ENCOUNTER 2025-03-28 15:03 | Inpatient (IN) | payer MEDICARE, SELFPAY ==
[2025-03-28] VITALS (9 sets, daily range): BP systolic 74–112; BP diastolic 41–66
[2025-03-28 12:58] LABS: Hematocrit 34.4 % (39.0-52.0); Hemoglobin 10.9 g/dL (13.0-18.0); Mean Corp Hgb Conc. 31.7 g/dL (33.0-37.0); Mean Corpuscular Volume 95.6 fL (80.0-94.0); Nucleated Red Blood Cells % 0 % (-); Platelet Count 257 10^3/uL (130-400); Red Cell Dist. Width 13.5 % (11.5-14.5)
[2025-03-28 13:07] LABS: ALT (SGPT) 44 U/L (0-50); AST (SGOT) 31 U/L (17-59); Albumin 3.7 g/dl (3.5-5.0); Alkaline Phosphatase 65 U/L (38-126); Blood Urea Nitrogen 21 mg/dl (9-20); Calcium 8.9 mg/dl (8.4-10.2); Carbon Dioxide 24 mmol/L (22-30); Chloride 101 mmol/L (98-107); Glucose 100 mg/dl (70-99); Potassium 4.1 mmol/L (3.5-5.1); Sodium 132 mmol/L (135-145); Total Protein 5.9 g/dl (6.3-8.2); eGFR > 60.00
[2025-03-28] MEDS: NSS 1000 IV ×2 (13:22→18:39)
[2025-03-28] MEDS: ROCEPHIN 2000 MG IV (13:45)
[2025-03-28] MEDS: FLAGYL 500 MG 100 IV (14:00)
--- NOTE | 2025-03-28 14:02 | ED.GENMED ---
History of Present Illness
<Sunday Lazaro PA-C - Last Filed: 03/28/25 14:52>
General
Chief Complaint: Skin Problem
Time Seen by Provider: 03/28/25 13:09
History of Present Illness
History of Present Illness:
85-year-old male with history of COPD and dementia presents to the emergency department for evaluation of right hand and wrist redness and swelling after being bitten by his cat yesterday. Notably was admitted to this hospital for complex
cellulitis of the left hand and wrist with resultant abscess after cat bite this summer. He has been taking doxycycline for 2 doses thus far with no improvement. Denies any fever
Past History
<Sunday Lazaro PA-C - Last Filed: 03/28/25 14:52>
Past History
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
dysphagia/Schatzki's ring) and Other (Diverticulitis, )
ED Past Surgical History: Appendectomy, Bowel resection ( Colon resection for diverticulitis with colostomy and then reversal), Orthopedic (Back surgery for spinal stenosis, Knee surgery right, Left hip pin and screws) and Tonsilectomy
Social History
Tobacco: Former smoker
Alcohol: Occasional
Drug: None
Personal:
Living: with family
Employment: Employed
Family History
Family History: Negative Early CAD
Review of Systems
<Sunday Lazaro PA-C - Last Filed: 03/28/25 14:52>
Review of Systems
Allergies reviewed?: Yes
All Other Systems: ROS reviewed and negative except as documented in HPI and ROS
Phy Exam
<Sunday Lazaro PA-C - Last Filed: 03/28/25 14:52>
Physical Exam
Physical Exam:
GEN: Well appearing, NAD, WDWN
HEENT: Oral mucosa moist, no scleral icterus
Cardiac: Regular rate
Lung: No respiratory distress, no tachypnea
MSK: Marked erythema of the right dorsal hand and wrist with severe pain with passive flexion at the wrist
Skin: Good color, no pallor or jaundice, no rashes
Neuro: AO x3, moves all extremities freely
Psych: Calm, cooperative
Course
<Sunday Lazaro PA-C - Last Filed: 03/28/25 14:52>
Orders/Labs/Results
Orders:
Orders
03/28/25 12:50
C-Reactive Protein Urgent
Comment: ESR & CRP ADDED ON BY FLOOR 2PM 03-28-25
Complete Blood Count/With Diff Urgent
Comprehensive Metabolic Panel Urgent
Erythrocyte Sed Rate Urgent
Lactic Acid Q4H
Comment: ON ICE, CANCEL 2ND ORDER IF FIRST LACTIC ACID LEVEL <2
Blood Culture Q20M
STEPHANIE Source: Blood/Venous
Specimen Description:
Comment: Urgent from separate sites. If patient screens positive for possible sepsis
03/28/25 13:18
CefTRIAXone [Rocephin] 2,000 mg IV NOW STA
MetroNIDAZOLE 500 MG/100 ML [Flagyl 500 mg] 100 ml IV NOW
03/28/25 13:20
0.9% Sodium Chloride 1000 ml [Nss] 1,000 ml IV BOLUS
03/28/25 13:22
Blood Culture Q20M
STEPHANIE Source: Blood/Venous
Specimen Description:
Comment: Urgent from separate sites. If patient screens positive for possible sepsis
03/28/25 13:32
CT Upper Ext W/iv Cont Rt Urgent
Comment:
Reason For Exam: R wrist/hand cellulitis poss abscess/cat bite
03/28/25 13:42
Sterile Water [Sterile Water For Injection] 10 ml .[address] .[facility] ONE
03/28/25 13:46
Sterile Water [Sterile Water For Injection] 10 ml .ROUTE .[facility] ONE
03/28/25 14:07
Add On- LAB Urgent
Tests Added?: CRP, ESR
03/28/25 14:34
Admit/Transfer Patient As Directed
Co-Sign Provider:
Level of Care: Inpatient admission
Assign to:: Medical/Surgical
Physician / Group: angelina
Diagnosis: cellulitis
Reason for Hospitalization: cellulitis
Expected length of stay greater than two midnights?: Yes
ELOS- Estimated Length of Stay in days: 3
I certify the patient meets the requirements for IP care: Yes
PRN Pain Medication Management As Directed
May give lesser potent ordered pain med per pt: Yes
preference::
Protocol:: Medication orders for pain may be administered in a
manner that supports deferring to patient preference
when the pt is:
- Requesting an ordered lesser potent pain medication.
Least to most potent pain medications are defined
as: acetaminophen < NSAID < tramadol < opioids
(morphine, oxycodone, hydromorphone).
- Requesting a lesser dose of the same medication IF
ORDERED.
- Requesting a less intrusive route of administration
if both routes are prescribed by the provider (PO <
IV).
03/28/25 14:36
Code Status As Directed
Resuscitation Status: Full Code
03/28/25 14:41
ORTHOPEDIC CONSULT Routine
Consulting Provider: Seamus Sam
Was physician already notified: Yes
03/28/25 17:00
Lactic Acid Q4H
Comment: ON ICE, CANCEL 2ND ORDER IF FIRST LACTIC ACID LEVEL <2
Abnormal Lab Results
03/28/25
12:50
WBC 23.8 H 10^3/uL
(4.8-10.8)
RBC 3.60 L 10^6/uL
(4.70-6.10)
Hgb 10.9 L g/dL
(13.0-18.0)
Hct 34.4 L %
(39.0-52.0)
MCV 95.6 H fL
(80.0-94.0)
MCHC 31.7 L g/dL
(33.0-37.0)
Abs Immat Gran (auto) 0.2 H 10^3/uL
(0-0.05)
Absolute Neuts (auto) 20.0 H 10^3/uL
(1.4-6.5)
Absolute Monos (auto) 2.2 H 10^3/uL
(0.1-0.6)
Immature Gran % 0.7 H %
(0-0.5)
Neutrophils % 84.4 H %
(42.2-75.2)
Lymphocytes % 5.5 L %
(20.5-51.1)
Sodium 132 L mmol/L
(135-145)
BUN 21 H mg/dl
(9-20)
Glucose 100 H mg/dl
(70-99)
Total Protein 5.9 L g/dl
(6.3-8.2)
03/28/25 12:50
03/28/25 12:50
Vital Signs
Initial and Last Documented VS:
Initial Vital Signs
Temp Pulse Resp BP Pulse Ox
98.3 F 61 18 74/41 99
03/28/25 12:30 03/28/25 12:30 03/28/25 12:30 03/28/25 12:30 03/28/25 12:30
Last Documented Vital Signs
Temp Pulse Resp BP Pulse Ox
98.3 F 66 21 108/59 99
03/28/25 12:30 03/28/25 14:00 03/28/25 14:00 03/28/25 14:00 03/28/25 14:03
<Rich Pérez, DO - Last Filed: 03/28/25 14:06>
Orders/Labs/Results
Orders:
Orders
03/28/25 12:50
C-Reactive Protein Urgent
Comment: ESR & CRP ADDED ON BY FLOOR 2PM 03-28-25
Complete Blood Count/With Diff Urgent
Comprehensive Metabolic Panel Urgent
Erythrocyte Sed Rate Urgent
Lactic Acid Q4H
Comment: ON ICE, CANCEL 2ND ORDER IF FIRST LACTIC ACID LEVEL <2
Blood Culture Q20M
STEPHANIE Source: Blood/Venous
Specimen Description:
Comment: Urgent from separate sites. If patient screens positive for possible sepsis
03/28/25 13:18
CefTRIAXone [Rocephin] 2,000 mg IV NOW STA
MetroNIDAZOLE 500 MG/100 ML [Flagyl 500 mg] 100 ml IV NOW
03/28/25 13:20
0.9% Sodium Chloride 1000 ml [Nss] 1,000 ml IV BOLUS
03/28/25 13:22
Blood Culture Q20M
STEPHANIE Source: Blood/Venous
Specimen Description:
Comment: Urgent from separate sites. If patient screens positive for possible sepsis
03/28/25 13:32
CT Upper Ext W/iv Cont Rt Urgent
Comment:
Reason For Exam: R wrist/hand cellulitis poss abscess/cat bite
03/28/25 13:42
Sterile Water [Sterile Water For Injection] 10 ml .ROUTE .[facility]
03/28/25 13:46
Sterile Water [Sterile Water For Injection] 10 ml .ROUTE .[facility]
03/28/25 14:07
Add On- LAB Urgent
Tests Added?: CRP, ESR
03/28/25 14:34
Admit/Transfer Patient As Directed
Co-Sign Provider:
Level of Care: Inpatient admission
Assign to:: Medical/Surgical
Physician / Group: angelina
Diagnosis: cellulitis
Reason for Hospitalization: cellulitis
Expected length of stay greater than two midnights?: Yes
ELOS- Estimated Length of Stay in days: 3
I certify the patient meets the requirements for IP care: Yes
PRN Pain Medication Management As Directed
May give lesser potent ordered pain med per pt: Yes
preference::
Protocol:: Medication orders for pain may be administered in a
manner that supports deferring to patient preference
when the pt is:
- Requesting an ordered lesser potent pain medication.
Least to most potent pain medications are defined
as: acetaminophen < NSAID < tramadol < opioids
(morphine, oxycodone, hydromorphone).
- Requesting a lesser dose of the same medication IF
ORDERED.
- Requesting a less intrusive route of administration
if both routes are prescribed by the provider (PO <
IV).
03/28/25 14:36
Code Status As Directed
Resuscitation Status: Full Code
03/28/25 14:41
ORTHOPEDIC CONSULT Routine
Consulting Provider: Seamus Sam
Was physician already notified: Yes
03/28/25 17:00
Lactic Acid Q4H
Comment: ON ICE, CANCEL 2ND ORDER IF FIRST LACTIC ACID LEVEL <2
Abnormal Lab Results
03/28/25
12:50
WBC 23.8 H 10^3/uL
(4.8-10.8)
RBC 3.60 L 10^6/uL
(4.70-6.10)
Hgb 10.9 L g/dL
(13.0-18.0)
Hct 34.4 L %
(39.0-52.0)
MCV 95.6 H fL
(80.0-94.0)
MCHC 31.7 L g/dL
(33.0-37.0)
Abs Immat Gran (auto) 0.2 H 10^3/uL
(0-0.05)
Absolute Neuts (auto) 20.0 H 10^3/uL
(1.4-6.5)
Absolute Monos (auto) 2.2 H 10^3/uL
(0.1-0.6)
Immature Gran % 0.7 H %
(0-0.5)
Neutrophils % 84.4 H %
(42.2-75.2)
Lymphocytes % 5.5 L %
(20.5-51.1)
Sodium 132 L mmol/L
(135-145)
BUN 21 H mg/dl
(9-20)
Glucose 100 H mg/dl
(70-99)
Total Protein 5.9 L g/dl
(6.3-8.2)
03/28/25 12:50
03/28/25 12:50
Vital Signs
Initial and Last Documented VS:
Initial Vital Signs
Temp Pulse Resp BP Pulse Ox
98.3 F 61 18 74/41 99
03/28/25 12:30 03/28/25 12:30 03/28/25 12:30 03/28/25 12:30 03/28/25 12:30
Last Documented Vital Signs
Temp Pulse Resp BP Pulse Ox
98.3 F 66 21 108/59 99
03/28/25 12:30 03/28/25 14:00 03/28/25 14:00 03/28/25 14:00 03/28/25 14:03
<Sunday Lazaro PA-C - Last Filed: 03/28/25 14:52>
MDM/Problems Addressed
MDM/Problems Addressed:
Patient with severe cellulitis and clinical concerns for extensor tenosynovitis on exam. Will be admitted on IV antibiotics, initially the patient was administered ceftriaxone and metronidazole due to penicillin allergy however on further review of
prior hospitalization he did tolerate Unasyn thus advised admitting team that Unasyn should be continued. Will send for CT to evaluate for abscess given severe leukocytosis
<Sunday Lazaro PA-C - Last Filed: 03/28/25 14:52>
*Pulse Oximetry
SaO2: 99
Oxygen Mode of Delivery: Room air
Patient hypoxic: no
*Critical Care Note
Total Time (30-74mins, 75-104mins- exclusive of procedures): Not Applicable
ED Attending Note
<Sunday Lazaro PA-C - Last Filed: 03/28/25 14:52>
-
Portions of this chart may have been created with voice recognition software.� Occasional wrong word or��sound alike� substitutions may have occurred due to the inherent limitations of voice recognition software.
<Rich Pérez DO - Last Filed: 03/28/25 14:06>
ED Attending Note
Patient seen and examined by attending physician: Yes
I performed the substantive portion of visit, reviewed & personally made and approve the management plan that is documented in note by myself or TERRY.: Yes
ED Attending Note:
I evaluated patient at bedside. The patient has rather significant erythema and tenderness and edema to the dorsal aspect of the right hand. Marked leukocytosis. He was hypotensive in triage however with IV fluids his systolic is now 108. Lactic
1.7. IV antibiotics have been started.
Discharge Plan
Departure
Patient Disposition: Admit
Date of Disposition: 03/28/25
Time of Disposition: 14:10
Admit to: Med/Surg
Presentation/result/management discussed w/ accepting MD/DO: Hospitalist
Discharge Problem:
Pasteurella cellulitis due to cat bite
Prescriptions:
No Action
donepezil 10 MG tablet
10 mg PO DAILY
atorvastatin 80 mg Tablet
80 mg PO QPM Qty: 30 11RF
aspirin 81 mg tablet,chewable
81 mg PO DAILY Qty: 30 11RF
metoprolol tartrate 25 mg Tablet
25 mg PO BID Qty: 60 11RF
pantoprazole 40 mg Tablet,Delayed Release (Dr/Ec)
40 mg PO DAILY Qty: 0 0RF
buprenorphine 10 mcg/hour Patch Weekly
1 patch TRANSDERMAL Q7D
duloxetine 60 mg capsule,delayed release(DR/EC)
60 mg PO DAILY
oxycodone 10 mg tablet
10 mg PO BID
oxycodone 10 mg tablet
15 mg PO HS
Interventions
Interventions:
*Risk Screen - Suicide Last Done: 03/28/25 12:30
*General Assessment Last Done: 03/28/25 12:30
*Neglect/Abuse Screening Last Done: 03/28/25 12:30
*ED COVID-19 Vaccine History Last Done: 03/28/25 12:30
*ED Influenza Vaccine History Last Done: 03/28/25 12:30
Discharge Date and Time
Print Language: SYRIAC
--- NOTE | 2025-03-28 14:12 | HPS.HSE ---
Addendum entered and electronically signed by Tushar Gonzáles MD 03/28/25 15:01:
This is an addendum to H&P written by Rosalinda Burgos on 03/28/2025. �Patient seen and examined independently with [facility].
85-year-old male past medical history of dementia, CAD, hyperlipidemia, chronic anemia, hypertension, iatrogenic adrenal insufficiency, polymyalgia rheumatica, COPD, GERD, osteoarthritis, presenting with cat bite from his own cat yesterday right
hand with swelling and redness streaking upwards. �No fevers or chills. �Started on doxycycline yesterday. �Does have some numbness of the dorsum of the right hand.
Vital signs show blood pressure initially 74/41.
Labs show leukocytosis of 23. �Hemoglobin stable at 10.9.
Patient with cat bite cellulitis of right hand. �Blood cultures pending. �CT scan of upper extremity pending to rule out deep infection. �Continue IV fluids. �Unasyn.
Original Note:
Family Physician
-
Family Physician:
Chief Complaint
-
Right hand cat bite
History of Present Illness
85-year-old male with history of COPD and dementia, CAD, GERD, hypercholesteremia, anxiety, BPH presents to the emergency department for evaluation of right hand and wrist redness and swelling after being bitten by his cat yesterday. As per ,
overnight his hand got swollen and today his redness spreaded to arm. denied fever, chills, chest pain,sob. his PCP started him on Doxy yesterday. denied CASTELAN, dizzy or syncope.denied abdominal pain,n,v,d. denied dysuria or hematuria.
Patient was started on ceftriaxone and Flagyl in ER. Blood culture sent from ER. Admitting for further management
Medical History
Past Medical History
Past Medical History: Reports Other
Additional Past Medical History:
Polymyalgia rheumatica, coronary artery disease, hyperlipidemia, gastritis, restrictive lung disease, spinal stenosis, osteoarthritis, osteoporosis, UTI, depression, anxiety, BPH, basal cell carcinoma, diverticulitis, squamous cell skin cancer
Past Surgical History: Reports Other
Additional Past Surgical History:
Cardiac stent, appendectomy, tonsillectomy, colon resection, lumbar decompression surgeries hip gluteal left EMILIA, Mohs surgery
Social History
Tobacco: Non-smoker
Alcohol: None
Drug: None
Personal:
Living: With Family
Family History
Family History: Not pertinent
Allergies / Home Medications
Allergies reflects when Allergies were last updated in [employer].
Home Medications with original date entered in [employer]
Allergy/Medication List:
Allergies
Allergy/AdvReac Type Severity Reaction Status Date / Time
morphine Allergy Hives Verified 03/28/25 12:29
penicillin V (Penicillin V) Allergy Rash Verified 03/28/25 12:29
Home Medications
donepezil 10 mg tablet 10 mg PO DAILY DEMENTIA 06/15/19
aspirin 81 mg chewable tablet 81 mg PO DAILY #30 tabs 11/15/23
atorvastatin 80 mg tablet 80 mg PO QPM High cholesterol #30 tabs 11/15/23
metoprolol tartrate 25 mg tablet 25 mg PO BID Heart disease/condition #60 tabs 11/21/23
pantoprazole 40 mg tablet,delayed release 40 mg PO DAILY #0 tabs 12/31/24
buprenorphine 10 mcg/hour weekly transdermal patch 1 patch transdermal Q7D Pain 01/03/25
duloxetine 60 mg capsule,delayed release 60 mg PO DAILY 03/28/25
oxycodone 10 mg tablet 10 mg PO BID 03/28/25
oxycodone 10 mg tablet 15 mg PO HS 03/28/25
Review of Systems
-
Constitutional: Reports No Symptoms
EENT: Reports No Symptoms
Respiratory: Reports No Symptoms
Cardiac: Reports No Symptoms
Abdomen/GI: Reports No Symptoms
: Reports No Symptoms
Musculoskeletal: Reports No Symptoms
Skin: Reports Other (Right hand cat bite, redness and swelling)
Neurological: Reports No Symptoms
Endocrine: Reports No Symptoms
Hematologic/Lymphatic: Reports No Symptoms
Psych: Reports No Symptoms
Physical Exam
Vital Signs
Vital Signs
Temp Pulse Resp BP Pulse Ox
98.3 F 66 21 108/59 99
03/28/25 12:30 03/28/25 14:00 03/28/25 14:00 03/28/25 14:00 03/28/25 14:03
Physical Exam
General: Well Developed, Well Nourished and No Apparent Distress
HEENT: NormoCephalic, Moist mucous membranes and Atraumatic
Respiratory: Clear
Cardiac: S1/S2 and Regular Rhythm; No Murmur or Rub
GI: Soft, Non Tender, Non Distended and Normal Bowel Sounds; No Organomegaly
Rectal: Deferred by Provider
Musculoskeletal: No Clubbing, No Cyanosis and No Edema
Skin: Rash and Other (Marked erythema of the right dorsal hand and wrist with severe pain with passive flexion at the wrist)
Neuro: AO x 3 and Nonfocal/grossly intact
Psych: Calm
Laboratory Results
-
03/28/25 12:50
03/28/25 12:50
Laboratory Results
Lactic Acid 1.7 mmol/L (0.7-2.0) 03/28/25 12:50
Total Bilirubin 1.1 mg/dl (0.2-1.3) 03/28/25 12:50
AST 31 U/L (17-59) 03/28/25 12:50
ALT 44 U/L (0-50) 03/28/25 12:50
Alkaline Phosphatase 65 U/L (38-126) 03/28/25 12:50
Data Reviewed
-
Lab Data: Labs Reviewed by me
Impression/Plan
-
# Right hand cellulitis secondary to cat bite
- IV Unasyn continue
- Orthopedics consulted
- Tylenol as needed for fever or pain
- WBCs 23.8
-CT pending
-blood culture sent from ER
# Anemia of chronic disease
- Hemoglobin stable at 10.9, no active bleeding
- Continue to monitor
#Dementia with behavioral disturbances
-Continue Aricept, duloxetine
#CAD s/p PCI
#HLD
#Essential HTN
- Aspirin, atorvastatin, metoprolol continued
#PMR
# Osteoarthritis
-Buprenorphine patch, oxycodone continued
# GERD
- Pantoprazole continued
DVT ppx - SQ Lovenox
Full code
[2025-03-28 15:25] LABS: C-Reactive Protein 139.10 mg/L (0.0-10.00)
--- NOTE | 2025-03-28 17:02 | EDCM ---
CM reviewed chart and met with pt and bedside in ED. Lives with his in 2 story home, 2 JOS, first floor half bath, full flight to second floor bedroom and full bath.
Independent in ADLs, personal care and ambulation at baseline. Mostly uses cane but also uses walker.
Confirms prescription coverage.
Hx [facility], hx [facility] in 2023
PCP: Rigoberto Richards
Pharmacy: [facility]
Anticipate discharge home, CM will continue to follow for all discharge planning needs.
[2025-03-28] MEDS: ROXICODONE 10 MG PO (17:53)
--- NOTE | 2025-03-28 18:33 | PTCARENOTE ---
Received pt from ED via stretcher. Pt pulled over to bed x2. Hx dementia. Bed alarm placed. at bedside. Skin assessed: right hand displayed cellulitis, red, warm, erythema with dry scab and small pink wound bed with scant amount of old drainage
and elevated on pillow; sacrum displayed stage 1 non akira area and foam placed with no sting barrier wipe. Unable to orient to room. Pt pleasant and talkative. Cane at bedside from home.
[2025-03-28] MEDS: LOVENOX 40 MG SC (18:39)
[2025-03-28] MEDS: LIPITOR 80 MG PO (18:39)
--- NOTE | 2025-03-28 18:43 | PTCARENOTE ---
Per , administer oral medication with applesauce.
[2025-03-28] MEDS: LOPRESSOR PO (20:38)
[2025-03-28] MEDS: ROXICODONE 15 MG PO (22:10)
[2025-03-28] MEDS: UNASYN IV (23:46)
[2025-03-29 00:29] VITALS: BP 111/54
[2025-03-29] MEDS: TORADOL 15 MG IV (01:29)
[2025-03-29] MEDS: DILAUDID 0.5 MG IV (01:30)
[2025-03-29] MEDS: UNASYN IV ×4 (05:42→23:38)
--- NOTE | 2025-03-29 07:02 | W.PN.HOSP.TC ---
Today's Communication/Plan
-
cont abx
Assessment / Plan
Assessment / Plan
Physical Exam
General:No acute distress, appears comfortable at this time
HEENT: NormoCephalic, Moist mucous membranes and Atraumatic
Respiratory: Clear
Cardiac: S1/S2 and Regular Rhythm; No Murmur or Rub
GI: Soft, Non Tender, Non Distended and Normal Bowel Sounds; No Organomegaly
Musculoskeletal: No Clubbing, No Cyanosis and No Edema, RUE dressing in place clean/dry/intact
Neuro: AO x 3 and Nonfocal/grossly intact
Psych: Calm
85M COPD Dementia CAD GERD HLD anxiety BPH p/w right hand and wrist redness and swelling after being bitten by his cat. Of note, patient was here for similar issue, back in Jan 2025, when cat bit his other hand- required surgical debridement. As
per , overnight his hand got swollen and spread to arm. Denied fever, chills, chest pain,sob. his PCP started him on Doxy day prior to presentation. Patient was started on ceftriaxone and Flagyl in ER. Blood culture sent from ER. Admitted
for further management
# Right hand cellulitis secondary to cat bite
#Leukocytosis
- IV Unasyn continue
- Orthopedics consult appreciated NWB RUE in splint, elevation, pain control
- Tylenol as needed for fever or pain
- Trend WBC
- CT appreciated no fluid collection/abscess noted
- follow cx's
# Anemia of chronic disease
- H&H stable
- Continue to monitor
#Dementia with behavioral disturbances
-Continue Aricept, duloxetine
#CAD s/p PCI
#HLD
#Essential HTN
- Aspirin, atorvastatin, metoprolol continued
#PMR
# Osteoarthritis
-Buprenorphine patch, oxycodone continued
# GERD
- Pantoprazole continued
DVT ppx - SQ Lovenox
Full code
Discussed with patient and patient's Birdie
I spent a total of 50 minutes with the patient or on the floor. More than 50% of this time involved counseling and coordination of care.
Anticipated Discharge: 24 - 48 hours
Subjective/Interval History
-
Date of Service: March 29, 2025
no acute distress resting comfortably bed. AOx2 disoriented to time but conversant,largely coherent. Pain relatively well controlled at this time.
Objective Data
-
Labs:
Laboratory Results
03/29/25
06:00
WBC Pending
Hgb Pending
Hct Pending
Plt Count Pending
Sodium Pending
Potassium Pending
Chloride Pending
Carbon Dioxide Pending
BUN Pending
Creatinine Pending
Glucose Pending
Calcium Pending
Vital Signs:
Vital Signs
Temp Pulse Resp BP Pulse Ox
98.9 F 70 16 111/54 99
03/28/25 23:00 03/29/25 00:29 03/28/25 23:00 03/29/25 00:29 03/28/25 23:00
I&O
03/28/25 03/29/25 03/30/25
06:59 06:59 06:59
Intake Total 1360 / 1360
Balance 1360 / 1360
[2025-03-29 07:15] VITALS: BP 119/60
[2025-03-29 08:27] LABS: Blood Urea Nitrogen 13 mg/dl (9-20); Calcium 8.3 mg/dl (8.4-10.2); Carbon Dioxide 22 mmol/L (22-30); Chloride 106 mmol/L (98-107); Glucose 77 mg/dl (70-99); Potassium 4.1 mmol/L (3.5-5.1); Sodium 131 mmol/L (135-145); eGFR > 60.00
--- NOTE | 2025-03-29 09:34 | CON.ORTHO ---
Consultation
-
Date/Time Consultation Performed: 03/29/2025 915 am
Consultation - Orthopedics
History
85-year-old male history of dementia presented to the emergency department complaints of right hand pain and swelling after a cat bite. He was ultimately admitted to the medical service. Orthopedics was consulted for further evaluation and
treatment. Patient somewhat confused this morning I did call and speak with his who provided additional history. She reports that he was bit by a cat around 1 PM this past Sunday. He was seen by his primary care physician and started on oral
antibiotics with progression of pain and swelling and redness. This morning patient's localizing pain to the dorsal aspect of his wrist in the area of the bite. Of note patient does have a history of cat bite to the contralateral extremity treated
surgically this summer.
Allergies / Home Medications
Past medical history: Dementia, COPD, GERD, hypercholesterolemia, polymyalgia rheumatica on chronic steroids
Past surgical history: Appendectomy, bowel resection, lumbar spine surgery, right knee surgery, left hip surgery
Family history: Not pertinent
Social history: Lives with , dementia
Allergy/AdvReac Type Severity Reaction Status Date / Time
morphine Allergy Hives Verified 03/28/25 12:29
penicillin V (Penicillin V) Allergy Rash Verified 03/28/25 18:17
�Medication �Instructions �Recorded
donepezil 10 mg tablet 10 mg PO DAILY DEMENTIA 06/15/19
aspirin 81 mg chewable tablet 81 mg PO DAILY #30 tabs 11/15/23
atorvastatin 80 mg tablet 80 mg PO QPM High cholesterol #30 11/15/23
tabs
metoprolol tartrate 25 mg tablet 25 mg PO BID Heart 11/21/23
disease/condition #60 tabs
pantoprazole 40 mg tablet,delayed 40 mg PO DAILY #0 tabs 12/31/24
release
buprenorphine 10 mcg/hour weekly 1 patch transdermal Q7D Pain 01/03/25
transdermal patch
duloxetine 60 mg capsule,delayed 60 mg PO DAILY 03/28/25
release
oxycodone 10 mg tablet 10 mg PO BID 03/28/25
oxycodone 10 mg tablet 15 mg PO HS 03/28/25
Vital Signs / Lab Results
Temp Pulse Resp BP Pulse Ox
98.2 F 73 16 119/60 96
03/29/25 07:15 03/29/25 07:15 03/29/25 07:15 03/29/25 07:15 03/29/25 07:15
03/29/25 07:01
10 point review systems reviewed and negative unless otherwise stated
General: Pleasant, no acute distress at rest, pleasantly confused, alert and oriented x 2
Musculoskeletal right upper extremity
2 wounds noted over the radial aspect dorsum wrist, no expressible drainage or purulence, there is erythema notable over the dorsal aspect of hand and wrist, there is moderate swelling noted. There is no evidence of lymphangitis or streaking
proximally, patient is able to weakly flex and extend thumb, able to flex and extend the remainder of IP joints form near composite fist there is no pain with passive motion of thumb, there is some discomfort reproducible with passive wrist flexion
although he does have active wrist flexion extension about 20-30 degrees limited somewhat by pain
Diagnostic studies
CT scan with and without contrast right wrist independently viewed by myself. Radiology report reviewed. CT scan without obvious collection although notably limited by patient positioning per radiology. No obvious joint effusion. Significant
degenerative changes noted radiocarpal joint, first metacarpal joint second MCP joint
Assessment / Plan
85-year-old male history of dementia status post cat bite right wrist/hand with cellulitis without obvious fluid collection. No obvious effusion on CT scan. Patient actually was able to eat breakfast with his affected extremity this morning. I
would recommend continuing IV antibiotics immobilization with splint reevaluation over the next 24 hours. If symptoms are not significantly improved, would recommend obtaining an MRI of the right hand to evaluate for any fluid collection or joint
effusion that would be consistent with abscess or septic arthritis, although it does seem as though the patient has improved somewhat significantly since admission.. This was discussed in detail with the patient's and she was in agreement with
this plan. Please reach out any questions or concerns.
Nonweightbearing right upper extremity in splint
Recommend elevation right upper extremity multiple pillows
Pain control
Medical management per primary team
Continue IV antibiotics per primary team
If no improvement over the next 24 hours, would recommend MRI of right wrist with and without contrast
[2025-03-29] MEDS: ROXICODONE 10 MG PO ×2 (09:37→14:18)
[2025-03-29] MEDS: ARICEPT 10 MG PO (09:38)
[2025-03-29] MEDS: LOW STRENGTH ASPIRIN 81 MG PO (09:38)
[2025-03-29] MEDS: PROTONIX 40 MG PO (09:39)
[2025-03-29] MEDS: LOPRESSOR 25 MG PO ×2 (09:39→20:23)
[2025-03-29] MEDS: CYMBALTA DELAYED RELEASE 60 MG PO (09:39)
[2025-03-29 12:05] LABS: Hematocrit 31.2 % (39.0-52.0); Hemoglobin 9.9 g/dL (13.0-18.0); Mean Corp Hgb Conc. 31.7 g/dL (33.0-37.0); Mean Corpuscular Volume 98.4 fL (80.0-94.0); Platelet Count 189 10^3/uL (130-400); Red Cell Dist. Width 13.3 % (11.5-14.5)
[2025-03-29] MEDS: TYLENOL 1000 MG PO (12:36)
[2025-03-29] MEDS: NSS IV (13:08)
[2025-03-29 16:36] VITALS: BP 101/48
[2025-03-29] MEDS: LIPITOR 80 MG PO (17:09)
[2025-03-29] MEDS: LOVENOX 40 MG SC (17:10)
[2025-03-29 21:36] VITALS: BP 117/58
[2025-03-29] MEDS: ROXICODONE 15 MG PO (21:41)
[2025-03-29 23:56] VITALS: BP 117/57
[2025-03-30] MEDS: UNASYN IV ×3 (05:06→17:30)
--- NOTE | 2025-03-30 06:30 | PTCARENOTE ---
After Unasyn infusion completed, this RN noted new onset of swelling, redness, and tenderness at the IV site. The IV previously flushed succesfully without difficult and showed no redness, swelling, or tenderness prior to infusion. VAT team RN
notified to assess IV. Plan of care ongoing.
[2025-03-30 06:34] LABS: Hematocrit 28.2 % (39.0-52.0); Hemoglobin 9.2 g/dL (13.0-18.0); Mean Corp Hgb Conc. 32.6 g/dL (33.0-37.0); Mean Corpuscular Volume 95.3 fL (80.0-94.0); Platelet Count 187 10^3/uL (130-400); Red Cell Dist. Width 13.3 % (11.5-14.5)
[2025-03-30 07:00] VITALS: BP 113/61
[2025-03-30 07:19] LABS: Blood Urea Nitrogen 9 mg/dl (9-20); Calcium 8.1 mg/dl (8.4-10.2); Carbon Dioxide 23 mmol/L (22-30); Chloride 105 mmol/L (98-107); Glucose 91 mg/dl (70-99); Magnesium 1.9 mg/dl (1.6-2.3); Potassium 3.6 mmol/L (3.5-5.1); Sodium 132 mmol/L (135-145); eGFR > 60.00
[2025-03-30 07:30] LABS: C-Reactive Protein 195.90 mg/L (0.0-10.00)
[2025-03-30] MEDS: PROTONIX 40 MG PO (07:46)
[2025-03-30] MEDS: CYMBALTA DELAYED RELEASE 60 MG PO (07:46)
[2025-03-30] MEDS: ROXICODONE 10 MG PO ×2 (07:47→14:09)
[2025-03-30] MEDS: LOPRESSOR 25 MG PO (07:47)
[2025-03-30] MEDS: LOW STRENGTH ASPIRIN 81 MG PO (07:47)
[2025-03-30] MEDS: ARICEPT 10 MG PO (07:47)
--- NOTE | 2025-03-30 07:48 | VATNOTE ---
Called to check IV site as RN reports it appears infiltrated. Large infiltrate noted with nothing infusing when assessed. Ampicillin documented as hung around 0500 and would be able to be treated with Hyaluronidase. made aware. Awaiting orders.
[2025-03-30] MEDS: HYLENEX 150 UNITS SC (08:35)
--- NOTE | 2025-03-30 08:51 | W.PN.HOSP.TC ---
Today's Communication/Plan
-
cont abx
Check MRI
Assessment / Plan
Assessment / Plan
Physical Exam
General:No acute distress, appears comfortable at this time
HEENT: NormoCephalic, Moist mucous membranes and Atraumatic
Respiratory: Clear
Cardiac: S1/S2 and Regular Rhythm; No Murmur or Rub
GI: Soft, Non Tender, Non Distended and Normal Bowel Sounds; No Organomegaly
Musculoskeletal: No Clubbing, No Cyanosis and No Edema, RUE dressing in place clean/dry/intact
Neuro: AO x 3 and Nonfocal/grossly intact
Psych: Calm
85M COPD Dementia CAD GERD HLD anxiety BPH p/w right hand and wrist redness and swelling after being bitten by his cat. Of note, patient was here for similar issue, back in Jan 2025, when cat bit his other hand- required surgical debridement. As
per , overnight his hand got swollen and spread to arm. Denied fever, chills, chest pain,sob. his PCP started him on Doxy day prior to presentation. Patient was started on ceftriaxone and Flagyl in ER. Blood culture sent from ER. Admitted
for further management
# Right hand cellulitis secondary to cat bite
#Leukocytosis
- IV Unasyn continue
- Orthopedics consult appreciated NWB RUE in splint, elevation, pain control
- Tylenol as needed for fever or pain
- Trend WBC
- CT appreciated no fluid collection/abscess noted
- follow cx's
-check RUE MRI
#Unasyn infiltration LUE
-treated with Hyaluronidase once
# Anemia of chronic disease
- H&H stable
- Continue to monitor
#Dementia with behavioral disturbances
-Continue Aricept, duloxetine
#CAD s/p PCI
#HLD
#Essential HTN
- Aspirin, atorvastatin, metoprolol continued
#PMR
# Osteoarthritis
-Buprenorphine patch, oxycodone continued
# GERD
- Pantoprazole continued
DVT ppx - SQ Lovenox
Full code
Discussed with patient and patient's Birdie
I spent a total of 40 minutes with the patient or on the floor. More than 50% of this time involved counseling and coordination of care.
Anticipated Discharge: 24 - 48 hours
Subjective/Interval History
-
Date of Service: March 30, 2025
No acute distress, resting comfortably in bed. AOx2 disoriented to time. Conversant coherent.
Objective Data
-
Labs:
Laboratory Results
03/30/25
06:11
WBC 10.0
Hgb 9.2 L
Hct 28.2 L
Plt Count 187
Sodium 132 L
Potassium 3.6
Chloride 105
Carbon Dioxide 23
BUN 9
Creatinine 0.6 L
Glucose 91
Calcium 8.1 L
Vital Signs:
Vital Signs
Temp Pulse Resp BP Pulse Ox
99.4 F 68 18 113/61 98
03/30/25 07:00 03/30/25 07:00 03/30/25 07:00 03/30/25 07:00 03/30/25 07:00
I&O
03/29/25 03/30/25 03/31/25
06:59 06:59 06:59
Intake Total 1360 / 1360 1200 / 1200
Output Total 150 / 150
Balance 1360 / 1360 1050 / 1050
--- NOTE | 2025-03-30 10:34 | VATNOTE ---
Hylenex given per protocol as ordered. Swelling appears improved, with redness and erythema noted around previous insertion site. Patient states area remains tender to touch. VAT to follow.
--- NOTE | 2025-03-30 11:34 | WOUNDNOTE ---
R MEDIAL HAND NEAR THUMB
--- NOTE | 2025-03-30 11:35 | WOUNDNOTE ---
R ANTERIOR MEDIAL WRIST
--- NOTE | 2025-03-30 11:50 | WOUNDNOTE ---
[facility] RN note: Patient admitted with pasteurella cellulitis of R hand from cat bite.
See H&P for complete history. Lives with .
PMH: 85-year-old male past medical history of dementia, CAD, hyperlipidemia, chronic anemia, hypertension, iatrogenic adrenal insufficiency, polymyalgia rheumatica, COPD, GERD, osteoarthritis, presenting with cat bite from his own cat yesterday
right hand with swelling and redness streaking upwards.
Wound Location and type/assessment: Patient admitted with: R hand swelling and redness from cat bite. Scabbed dry area near thumb, drainage from puncture site near anterior wrist, moderate pus. Complains of pain upon touch, 3+ edema still in hand
and redness. Ortho following, reviewed note. Splint in use secured with mika wrap. Patient able to turn self in bed, sacrum is blanchable pink, mild MASD. Heels intact.
Appetite: Good.
Pressure redistribution devices in place: Accumax, turns self, ad lilian with cane. R hand elevated with pillows.
Plan: Swab culture done, Dr. Merida put in order for culture. Dry dressing, Spandage, splint and mika wrap to secure applied. Hand remains elevated on several pillows. Will confirm orders with hospitalist and updated nurse.
Updated care plan and will follow as needed.
Note to case management of equipment requested for discharge: TBD.
Recommend follow up at wound care center upon discharge.
--- NOTE | 2025-03-30 12:59 | CM ---
CM spoke with pt's to complete IA. Pt admitted after being bitten by a cat. Anatoliy lives with his in 2 story home with 2 entry steps. First floor half bath, full flight to second floor bedroom and full bath. Independent in ADLs, personal
care and ambulation at baseline. Mostly uses cane but also uses walker.
Prescription coverage confirmed.
Hx [facility], hx [facility] in 2023
Pt admitted after being bitten by a cat.
PCP: Rigoberto Richards
Pharmacy: [facility]
Anticipate discharge home; will need follow up at outpatient wound care center. CM will continue to follow for all discharge planning needs.
[2025-03-30 15:00] VITALS: BP 99/43
--- NOTE | 2025-03-30 16:59 | W.PN.UPDATE ---
Update Note
Progress Note Update
Patient seen and examined this evening. Continues to have pain over the dorsal radial aspect of right hand. No expressible drainage or purulence. edematous hand notable. Patient is able to form composite fist with good extension of MCP and IP
joints
85-year-old male history of dementia status post cat bite with persistent pain and swelling evidence of cellulitis right hand
Nonweightbearing right upper extremity in splint
Pain control
Medical management per primary team
Continue antibiotics per primary team
Follow-up MRI with and without contrast right hand to evaluate for any evidence of abscess or collections in addition to septic arthritis
Please reach out with questions or concerns
[2025-03-30] MEDS: LOVENOX 40 MG SC (17:29)
[2025-03-30] MEDS: LIPITOR 80 MG PO (17:30)
[2025-03-30] MEDS: LOPRESSOR 12.5 MG PO (20:05)
[2025-03-30] MEDS: ROXICODONE 15 MG PO (21:37)
[2025-03-30 21:38] VITALS: BP 121/98
[2025-03-30 23:00] VITALS: BP 114/56
[2025-03-31] MEDS: UNASYN IV ×5 (00:31→23:16)
[2025-03-31] MEDS: TYLENOL 650 MG PO ×3 (02:18→16:57)
[2025-03-31 06:34] LABS: Hematocrit 29.7 % (39.0-52.0); Hemoglobin 9.7 g/dL (13.0-18.0); Mean Corp Hgb Conc. 32.7 g/dL (33.0-37.0); Mean Corpuscular Volume 91.1 fL (80.0-94.0); Platelet Count 230 10^3/uL (130-400); Red Cell Dist. Width 13.3 % (11.5-14.5)
[2025-03-31 06:43] LABS: Blood Urea Nitrogen 8 mg/dl (9-20); Calcium 8.4 mg/dl (8.4-10.2); Carbon Dioxide 26 mmol/L (22-30); Chloride 106 mmol/L (98-107); Glucose 92 mg/dl (70-99); Magnesium 2.1 mg/dl (1.6-2.3); Potassium 3.8 mmol/L (3.5-5.1); Sodium 136 mmol/L (135-145); eGFR > 60.00
[2025-03-31 07:00] VITALS: BP 129/69
--- NOTE | 2025-03-31 08:11 | W.PN.HOSP.TC ---
Today's Communication/Plan
-
cont abx
wound care
RUE MRI
Assessment / Plan
Assessment / Plan
Physical Exam
General:No acute distress, appears comfortable at this time
HEENT: NormoCephalic, Moist mucous membranes and Atraumatic
Respiratory: Clear
Cardiac: S1/S2 and Regular Rhythm; No Murmur or Rub
GI: Soft, Non Tender, Non Distended and Normal Bowel Sounds; No Organomegaly
Musculoskeletal: No Clubbing, No Cyanosis and No Edema, RUE dressing in place clean/dry/intact
Neuro: AO x 3 and Nonfocal/grossly intact
Psych: Calm
85M COPD Dementia CAD GERD HLD anxiety BPH p/w right hand and wrist redness and swelling after being bitten by his cat. Of note, patient was here for similar issue, back in Jan 2025, when cat bit his other hand- required surgical debridement. As
per , overnight his hand got swollen and spread to arm. Denied fever, chills, chest pain,sob. his PCP started him on Doxy day prior to presentation. Patient was started on ceftriaxone and Flagyl in ER. Blood culture sent from ER. Admitted
for further management
# Right hand cellulitis secondary to cat bite
#Leukocytosis
- IV Unasyn continue
- Orthopedics consult appreciated NWB RUE in splint, elevation, pain control
- Tylenol as needed for fever or pain
- Trend WBC
- CT appreciated no fluid collection/abscess noted
- follow cx's
-RUE MRI remains pending
#Unasyn infiltration LUE
-treated with Hyaluronidase once
# Anemia of chronic disease
- H&H stable
- Continue to monitor
#Dementia with behavioral disturbances
-Continue Aricept, duloxetine
#CAD s/p PCI
#HLD
#Essential HTN
- Aspirin, atorvastatin, metoprolol continued
-metoprolol switched from short acting to long acting for ease of dosing
#PMR
# Osteoarthritis
-Buprenorphine patch, oxycodone continued
# GERD
- Pantoprazole continued
#BMI <18.5, underweight
Ensure supplementation
DVT ppx - SQ Lovenox
Full code
Discussed with patient and patient's Birdie
I spent a total of 40 minutes with the patient or on the floor. More than 50% of this time involved counseling and coordination of care.
Anticipated Discharge: 24 - 48 hours
Subjective/Interval History
-
Date of Service: March 31, 2025
no acute distress, resting comfortably in bed. Right hand swelling pain persists.
Objective Data
-
Labs:
Laboratory Results
03/31/25
05:47
WBC 8.3
Hgb 9.7 L
Hct 29.7 L
Plt Count 230 D
Sodium 136
Potassium 3.8
Chloride 106
Carbon Dioxide 26
BUN 8 L
Creatinine 0.6 L
Glucose 92
Calcium 8.4
Vital Signs:
Vital Signs
Temp Pulse Resp BP Pulse Ox
97.8 F 62 17 129/69 98
03/31/25 07:00 03/31/25 07:00 03/31/25 07:00 03/31/25 07:00 03/31/25 07:00
I&O
03/30/25 03/31/25 04/01/25
06:59 06:59 06:59
Intake Total 1200 / 1200 1779
Output Total 150 / 150
Balance 1050 / 1050 1779
[2025-03-31] MEDS: CYMBALTA DELAYED RELEASE 60 MG PO (08:27)
[2025-03-31] MEDS: TOPROL XL 25 MG PO (08:27)
[2025-03-31] MEDS: ARICEPT 10 MG PO (08:27)
[2025-03-31] MEDS: LOW STRENGTH ASPIRIN 81 MG PO (08:27)
[2025-03-31] MEDS: ROXICODONE 10 MG PO ×2 (08:27→13:34)
[2025-03-31] MEDS: PROTONIX 40 MG PO (08:27)
--- NOTE | 2025-03-31 14:34 | PN.CDI ---
CDI
- -
CDI:
Physician Documentation Request
Admit Date: 03/28/25 15:03
Dear Doctor,
Please review the following and provide your response in the progress notes.
Clinical Indicators:
Height:
Weight: 117 lbs
BMI: 17.8
Other Clinical Notes:
03/29 Registered Dietitian Note: ' His weight loss has been slow over a long period of time....Current BW: (03/28) 117lbs 4.575 oz BMI: 17.8 (underweight).Weight history (07/10/24) 124 lbs. This is a5= 5.7% BW loss over 9 months (insignificant).'
If possible, please provide an associated diagnosis related to the abnormal BMI, such as:
BMI < or = to 19
Underweight
Weight Loss
Cachectic
BMI is not significant
Other
Use of terms such as suspected, likely, concern for, or probable (associated with a specific diagnosis that is being evaluated, monitored, or treated as if it exists) are acceptable and can be coded in the inpatient setting, when documented at the
time of discharge.
Thank you,
Cydney Boyer RN, BSN
CDI Specialist
[place] [employer]
Please use your independent medical judgment in providing your response.
[2025-03-31 15:00] VITALS: BP 104/57
--- NOTE | 2025-03-31 15:38 | CM ---
Pt is currently on IV abx; CM to watch for home IV abx needs to coordinate services as needed prior to discharge to home.
[2025-03-31] MEDS: LOVENOX 40 MG SC (17:12)
[2025-03-31] MEDS: LIPITOR 80 MG PO (17:12)
[2025-03-31 21:03] VITALS: BP 135/58
[2025-03-31] MEDS: ROXICODONE 15 MG PO (21:04)
[2025-03-31 23:30] VITALS: BP 114/60
[2025-03-31] MEDS: DILAUDID 0.5 MG IV (23:49)
--- NOTE | 2025-04-01 02:43 | DOWNTIME ---
There was a [employer] Downtime on 04/01/2025 from 0100 to 04/01/2025 at 0215. Downtime documentation of patient's care, including medication administrations, has been reconciled in the electronic record per guidelines. Refer to the
patient's paper chart under the miscellaneous tab to see printed paper medication records and downtime forms.
[2025-04-01 03:20] VITALS: BP 141/57
[2025-04-01] MEDS: DILAUDID 0.5 MG IV ×3 (03:22→17:07)
[2025-04-01] MEDS: TYLENOL 650 MG PO ×3 (04:26→19:51)
[2025-04-01] MEDS: UNASYN IV ×4 (05:28→23:00)
--- NOTE | 2025-04-01 05:51 | PTCARENOTE ---
Throughout night, pt noncompliant with elevating RUE and constantly taking off splint, wound care dressing, and ADORE wraps. This RN redressed RUE multiple times. Pt still continuing to take off. Education provided about importance of elevating RUE
and keeping ADORE wraps. Pt verbalizes understanding but is forgetful and continues to be noncompliant. Plan of care ongoing.
[2025-04-01 06:01] LABS: Hematocrit 29.5 % (39.0-52.0); Hemoglobin 9.5 g/dL (13.0-18.0); Mean Corp Hgb Conc. 32.2 g/dL (33.0-37.0); Mean Corpuscular Volume 94.9 fL (80.0-94.0); Platelet Count 244 10^3/uL (130-400); Red Cell Dist. Width 13.2 % (11.5-14.5)
[2025-04-01 06:58] LABS: Blood Urea Nitrogen 8 mg/dl (9-20); Calcium 8.1 mg/dl (8.4-10.2); Carbon Dioxide 25 mmol/L (22-30); Chloride 107 mmol/L (98-107); Glucose 97 mg/dl (70-99); Magnesium 2.1 mg/dl (1.6-2.3); Potassium 3.8 mmol/L (3.5-5.1); Sodium 134 mmol/L (135-145); eGFR > 60.00
[2025-04-01 07:00] VITALS: BP 134/60
[2025-04-01] MEDS: TOPROL XL 25 MG PO (07:40)
[2025-04-01] MEDS: PROTONIX 40 MG PO (07:40)
[2025-04-01] MEDS: CYMBALTA DELAYED RELEASE 60 MG PO (07:40)
[2025-04-01] MEDS: LOW STRENGTH ASPIRIN 81 MG PO (07:40)
[2025-04-01] MEDS: ARICEPT 10 MG PO (07:40)
[2025-04-01] MEDS: ROXICODONE 10 MG PO ×2 (07:42→13:10)
[2025-04-01 09:05] VITALS: BP 116/56; PULSE 69; O2SAT 99
[2025-04-01 09:07] VITALS: BP 116/56; PULSE 69; O2SAT 99
--- NOTE | 2025-04-01 11:48 | CM ---
CM called MRI to inquire when pt will be able to have the MRI completed. MRI was ordered 03/30/2025. Pt's is concerned that delay in MRI could impact pt's outcome, as MRI will determine if there is any abscess or septic arthritis that will
require surgery.
Pt's updated that MRI is scheduled for 1PM (approximately) today.
Plan: CM will continue to follow to coordinate all discharge needs.
--- NOTE | 2025-04-01 12:59 | W.PN.HOSP.TC ---
Today's Communication/Plan
-
await MRI RUE
Pain control
elevated RUE
ortho recs
Assessment / Plan
Assessment / Plan
Physical Exam
General:No acute distress, appears comfortable at this time
HEENT: NormoCephalic, Moist mucous membranes and Atraumatic
Respiratory: Clear
Cardiac: S1/S2 and Regular Rhythm; No Murmur or Rub
GI: Soft, Non Tender, Non Distended and Normal Bowel Sounds; No Organomegaly
Musculoskeletal: No Clubbing, No Cyanosis and No Edema, RUE dressing in place clean/dry/intact
Neuro: AO x 3 and Nonfocal/grossly intact
Psych: Calm
85M COPD Dementia CAD GERD HLD anxiety BPH p/w right hand and wrist redness and swelling after being bitten by his cat. Of note, patient was here for similar issue, back in Jan 2025, when cat bit his other hand- required surgical debridement. As
per , overnight his hand got swollen and spread to arm. Denied fever, chills, chest pain,sob. his PCP started him on Doxy day prior to presentation. Patient was started on ceftriaxone and Flagyl in ER. Blood culture sent from ER. Admitted
for further management
# Right hand cellulitis secondary to cat bite
#Leukocytosis
- IV Unasyn continue
- Orthopedics consult appreciated NWB RUE in splint, elevation, pain control
- Tylenol as needed for fever or pain
- Trend WBC
- CT appreciated no fluid collection/abscess noted
- follow cx's
- RUE MRI remains pending
#Unasyn infiltration LUE
-treated with Hyaluronidase once
# Anemia of chronic disease
- H&H stable
- Continue to monitor
#Dementia with behavioral disturbances
-Continue Aricept, duloxetine
#CAD s/p PCI
#HLD
#Essential HTN
- Aspirin, atorvastatin, metoprolol continued
-metoprolol switched from short acting to long acting for ease of dosing
#PMR
# Osteoarthritis
-Buprenorphine patch, oxycodone continued
# GERD
- Pantoprazole continued
#BMI <18.5, underweight
Ensure supplementation
DVT ppx - SQ Lovenox
Full code
Anticipated Discharge: > 48 hours
Subjective/Interval History
-
Date of Service: April 01, 2025
states of R hand pain
Objective Data
-
Labs:
Laboratory Results
04/01/25
05:49
WBC 6.7
Hgb 9.5 L
Hct 29.5 L
Plt Count 244
Sodium 134 L
Potassium 3.8
Chloride 107
Carbon Dioxide 25
BUN 8 L
Creatinine 0.6 L
Glucose 97
Calcium 8.1 L
Vital Signs:
Vital Signs
Temp Pulse Resp BP Pulse Ox
98.6 F 64 17 134/60 97
04/01/25 07:00 04/01/25 07:40 04/01/25 07:00 04/01/25 07:40 04/01/25 08:19
I&O
03/31/25 04/01/25 04/02/25
06:59 06:59 06:59
Intake Total 1779 1160 / 1160
Balance 1779 1160 / 1160
[2025-04-01 15:00] VITALS: BP 110/59
[2025-04-01] MEDS: LIPITOR 80 MG PO (17:08)
[2025-04-01] MEDS: LOVENOX 40 MG SC (17:08)
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
[2025-04-01] MEDS: RISPERDAL M-TAB (ORALLY DISINTEGRATING) 0.25 MG PO (19:41)
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
[2025-04-01] MEDS: ROXICODONE 15 MG PO (21:09)
[2025-04-01 22:48] VITALS: BP 112/55
--- NOTE | 2025-04-02 05:12 | PTCARENOTE ---
Wound care completed multiple times throughout shift d/t pt repeatedly removing dressing, splint and mika wrap. Pt educated multiple times on the importance of the splint and wrap. Call leahy within reach, bed alarm in place, and plan of care ongoing.
[2025-04-02] MEDS: UNASYN IV ×3 (05:54→17:21)
[2025-04-02 06:30] LABS: Hematocrit 29.9 % (39.0-52.0); Hemoglobin 9.7 g/dL (13.0-18.0); Mean Corp Hgb Conc. 32.4 g/dL (33.0-37.0); Mean Corpuscular Volume 94.9 fL (80.0-94.0); Nucleated Red Blood Cells % 0 % (-); Platelet Count 288 10^3/uL (130-400); Red Cell Dist. Width 13.3 % (11.5-14.5)
[2025-04-02 06:50] LABS: Blood Urea Nitrogen 7 mg/dl (9-20); Calcium 8.5 mg/dl (8.4-10.2); Carbon Dioxide 26 mmol/L (22-30); Chloride 108 mmol/L (98-107); Glucose 87 mg/dl (70-99); Potassium 3.9 mmol/L (3.5-5.1); Sodium 134 mmol/L (135-145); eGFR > 60.00
[2025-04-02 07:00] VITALS: BP 115/70
[2025-04-02] MEDS: CYMBALTA DELAYED RELEASE 60 MG PO (08:19)
[2025-04-02] MEDS: ROXICODONE 10 MG PO ×2 (08:19→14:30)
[2025-04-02] MEDS: ARICEPT 10 MG PO (08:20)
[2025-04-02] MEDS: LOW STRENGTH ASPIRIN 81 MG PO (08:20)
[2025-04-02] MEDS: PROTONIX 40 MG PO (08:20)
[2025-04-02] MEDS: TOPROL XL 25 MG PO (08:20)
[2025-04-02] MEDS: TYLENOL 650 MG PO ×2 (10:13→20:59)
--- NOTE | 2025-04-02 11:13 | W.PN.HOSP.TC ---
Addendum entered and electronically signed by Jesus Recinos MD 04/02/25 13:21:
Updated spouse at bedside in details
Original Note:
Today's Communication/Plan
-
IV abx while here
ortho recs
Assessment / Plan
Assessment / Plan
Physical Exam
General:No acute distress, appears comfortable at this time
HEENT: NormoCephalic, Moist mucous membranes and Atraumatic
Respiratory: Clear
Cardiac: S1/S2 and Regular Rhythm; No Murmur or Rub
GI: Soft, Non Tender, Non Distended and Normal Bowel Sounds; No Organomegaly
Musculoskeletal: No Clubbing, No Cyanosis and No Edema, RUE dressing in place clean/dry/intact
Neuro: AO x 3 and Nonfocal/grossly intact
Psych: Calm
85M COPD Dementia CAD GERD HLD anxiety BPH p/w right hand and wrist redness and swelling after being bitten by his cat. Of note, patient was here for similar issue, back in Jan 2025, when cat bit his other hand- required surgical debridement. As
per , overnight his hand got swollen and spread to arm. Denied fever, chills, chest pain,sob. his PCP started him on Doxy day prior to presentation. Patient was started on ceftriaxone and Flagyl in ER. Blood culture sent from ER. Admitted
for further management
# Right hand cellulitis secondary to cat bite
#Leukocytosis
- IV Unasyn continue
- Orthopedics consult appreciated NWB RUE in splint, elevation, pain control
- Tylenol as needed for fever or pain
- Trend WBC
- CT appreciated no fluid collection/abscess noted
- Blood cultures remains negative.
- RUE MRI noted. will d/w with ortho. TTed Dr. Sam.
#Unasyn infiltration LUE
-treated with Hyaluronidase once
# Anemia of chronic disease
- H&H stable
- Continue to monitor
#Dementia with behavioral disturbances
-Continue Aricept, duloxetine
#CAD s/p PCI
#HLD
#Essential HTN
- Aspirin, atorvastatin, metoprolol continued
-metoprolol switched from short acting to long acting for ease of dosing
#PMR
# Osteoarthritis
-Buprenorphine patch, oxycodone continued
# GERD
- Pantoprazole continued
#BMI <18.5, underweight
Ensure supplementation
DVT ppx - SQ Lovenox
Full code
Anticipated Discharge: 24 - 48 hours
Subjective/Interval History
-
Date of Service: April 02, 2025
states of pain/soreness with finger extention at times
trying to elevated RUE
overnight events noted
Objective Data
-
Labs:
Laboratory Results
04/02/25
06:13
WBC 5.3
Hgb 9.7 L
Hct 29.9 L
Plt Count 288
Sodium 134 L
Potassium 3.9
Chloride 108 H
Carbon Dioxide 26
BUN 7 L
Creatinine 0.5 L
Glucose 87
Calcium 8.5
Vital Signs:
Vital Signs
Temp Pulse Resp BP Pulse Ox
98.3 F 82 18 115/70 98
04/02/25 07:00 04/02/25 08:20 04/02/25 07:00 04/02/25 08:20 04/02/25 10:03
I&O
04/01/25 04/02/25 04/03/25
06:59 06:59 06:59
Intake Total 1160 / 1160 900 / 900 600 / 600
Balance 1160 / 1160 900 / 900 600 / 600
[2025-04-02 14:55] VITALS: BP 93/54
[2025-04-02] MEDS: BUTRANS 15 MCG/HR 1 PATCH TRANSDERM (15:22)
[2025-04-02] MEDS: REMOVE PT OWN BUTRANS PATCH 1 PATCH REMOVE (15:22)
[2025-04-02 16:24] VITALS: BP 94/52; PULSE 71
--- NOTE | 2025-04-02 16:41 | W.PN.UPDATE ---
Update Note
Progress Note Update
Patient seen and examined this evening. MRI with and without contrast right upper extremity reviewed. There is no obvious fluid collections. There was concern on MRI report for increase signal index finger MCP joint. Patient was examined and
really has no significant pain clinically in this area.
Plan
85-year-old male history of dementia status post cat bite to right hand with cellulitis. No obvious abscess or fluid collection and no obvious clinical signs consistent with septic arthritis. This point would recommend continued medical treatment
with antibiotics. Can follow-up outpatient either with myself or with hand team. Would recommend continued immobilization for the next week continued elevation ice to the right upper extremity for edema control. Please reach out with questions or
concerns
[2025-04-02] MEDS: LIPITOR 80 MG PO (17:21)
[2025-04-02] MEDS: LOVENOX 40 MG SC (17:21)
[2025-04-02 20:55] VITALS: BP 118/60
[2025-04-02] MEDS: ROXICODONE 15 MG PO (21:00)
[2025-04-02 23:28] VITALS: BP 113/63
[2025-04-03] MEDS: UNASYN IV ×3 (00:24→11:56)
[2025-04-03] MEDS: TYLENOL 650 MG PO (05:49)
[2025-04-03 05:51] LABS: Hematocrit 30.1 % (39.0-52.0); Hemoglobin 10.0 g/dL (13.0-18.0); Mean Corp Hgb Conc. 33.2 g/dL (33.0-37.0); Mean Corpuscular Volume 92.0 fL (80.0-94.0); Nucleated Red Blood Cells % 0 % (-); Platelet Count 328 10^3/uL (130-400); Red Cell Dist. Width 13.2 % (11.5-14.5)
[2025-04-03 06:47] LABS: Blood Urea Nitrogen 9 mg/dl (9-20); Calcium 8.5 mg/dl (8.4-10.2); Carbon Dioxide 27 mmol/L (22-30); Chloride 107 mmol/L (98-107); Glucose 87 mg/dl (70-99); Potassium 4.1 mmol/L (3.5-5.1); Sodium 139 mmol/L (135-145); eGFR > 60.00
[2025-04-03 08:10] VITALS: BP 142/77
[2025-04-03] MEDS: LOW STRENGTH ASPIRIN 81 MG PO (09:00)
[2025-04-03] MEDS: TOPROL XL 25 MG PO (09:00)
[2025-04-03] MEDS: ROXICODONE 10 MG PO ×2 (09:00→13:38)
[2025-04-03] MEDS: PROTONIX 40 MG PO (09:00)
[2025-04-03] MEDS: ARICEPT 10 MG PO (09:00)
[2025-04-03] MEDS: CYMBALTA DELAYED RELEASE 60 MG PO (09:00)
--- NOTE | 2025-04-03 11:28 | W.PN.HOSP.TC ---
Today's Communication/Plan
-
OP ortho f/u
po abx
VN ordered
Assessment / Plan
Assessment / Plan
Physical Exam
General:No acute distress, appears comfortable at this time
HEENT: NormoCephalic, Moist mucous membranes and Atraumatic
Respiratory: Clear
Cardiac: S1/S2 and Regular Rhythm; No Murmur or Rub
GI: Soft, Non Tender, Non Distended and Normal Bowel Sounds; No Organomegaly
Musculoskeletal: No Clubbing, No Cyanosis and No Edema, RUE dressing in place clean/dry/intact
Neuro: AO x 3 and Nonfocal/grossly intact
Psych: Calm
85M COPD Dementia CAD GERD HLD anxiety BPH p/w right hand and wrist redness and swelling after being bitten by his cat. Of note, patient was here for similar issue, back in Jan 2025, when cat bit his other hand- required surgical debridement. As
per , overnight his hand got swollen and spread to arm. Denied fever, chills, chest pain,sob. his PCP started him on Doxy day prior to presentation. Patient was started on ceftriaxone and Flagyl in ER. Blood culture sent from ER. Admitted
for further management
# Right hand cellulitis secondary to cat bite
#Leukocytosis
- IV Unasyn continue transition to p.o. Augmentin on discharge
- Orthopedics consult appreciated NWB RUE in splint, elevation, pain control
- Tylenol as needed for fever or pain
- Trend WBC
- CT appreciated no fluid collection/abscess noted
- Blood cultures remains negative.
- RUE MRI noted. Discussed Dr. Sam about MRI finding. No plan for surgical intervention. Recommended splint and outpatient follow-up. Ice with elevation of the right upper extremity was recommended.
#Unasyn infiltration LUE
-treated with Hyaluronidase once
# Anemia of chronic disease
- H&H stable
- Continue to monitor
#Dementia with behavioral disturbances
-Continue Aricept, duloxetine
#CAD s/p PCI
#HLD
#Essential HTN
- Aspirin, atorvastatin, metoprolol continued
-metoprolol switched from short acting to long acting for ease of dosing
#PMR
# Osteoarthritis
-Buprenorphine patch, oxycodone continued
# GERD
- Pantoprazole continued
#BMI <18.5, underweight
Ensure supplementation
DVT ppx - SQ Lovenox
Full code
Updated spouse over the phone in details.
More than 30 minutes spent in discharge including
Final examination of the patient
Summarizing hospital stay
Instructions for continuing care to all relevant caregivers
Preparation of discharge records, prescriptions, and referral forms
Total time spent (in minutes): 53
Anticipated Discharge: Today
Subjective/Interval History
-
Date of Service: April 03, 2025
denies pain to R hand
Objective Data
-
Labs:
Laboratory Results
04/03/25
05:32
WBC 6.5
Hgb 10.0 L
Hct 30.1 L
Plt Count 328
Sodium 139
Potassium 4.1
Chloride 107
Carbon Dioxide 27
BUN 9
Creatinine 0.6 L
Glucose 87
Calcium 8.5
Vital Signs:
Vital Signs
Temp Pulse Resp BP Pulse Ox
98.0 F 70 18 142/77 98
04/03/25 08:10 04/03/25 09:00 04/03/25 08:10 04/03/25 09:00 04/02/25 14:55
I&O
04/02/25 04/03/25 04/04/25
06:59 06:59 06:59
Intake Total 900 / 900 2099
Balance 900 / 900 2099
--- NOTE | 2025-04-03 11:31 | W.DCSUMMARY ---
Discharge Summary
Discharge Data
Date of Admission: 03/28/25
Date of Discharge: 04/03/25
-
Pending Results: No
Hospital Course
85M COPD Dementia CAD GERD HLD anxiety BPH p/w right hand and wrist redness and swelling after being bitten by his cat. As per , his hand got swollen and spread to arm. Denied fever, chills, chest pain,sob. his PCP started him on Doxy day
prior to presentation. Patient was started on ceftriaxone and Flagyl in ER. Blood culture sent from ER. Antibiotics were transitioned to IV Unasyn. Orthopedic was consulted. CT of the right upper extremity no fluid collection abscess was noted.
Patient underwent MRI of the right upper extremity. Splint was placed and ice pack was recommended. Pain was controlled. Blood cultures were negative. Wound culture with Pasteurella. MRI of the right upper extremity with extensive soft tissue
swelling compatible with cellulitis. There was some concern of on MRI report of increased signal index finger MCP joint. Patient without significant pain and per orthopedic not concern for septic arthritis. They recommended to continue with
immobilization for 1 week, elevation with ice and antibiotics. Outpatient follow-up. All patient questions were answered. Patient spouse was updated about hospitalization. She was agreeable amenable to discharge planning.
Discharge Plan
-
Patient Disposition: Home with Home Care
Discharge Diagnosis/Procedures: Right hand cellulitis secondary to cat bite
Leukocytosis
Condition: Fair
Diet: Regular
Activity: As tolerated and No strenuous activity
Driving Restrictions: No driving
Other Services: VN
Activity Restrictions/Additional Instructions:
Wound Care Instructions
R hand: clean open area near wrist with soap and water, folded gauze and maggie change daily and prn drainage. Spandage, splint and mika wrap to secure
R arm elevation
recommend continued immobilization for the next week continued elevation ice to the right upper extremity for edema control.
Referrals:
Rigoberto Richards MD [Family Provider, Internal Medicine] - in less than 1 week
Seamus Sam MD [Active, Orthopedics] - in one to two weeks
Prescriptions:
New
metoprolol succinate 25 mg Tablet Extended Release 24 Hr
25 mg PO DAILY 30 Days Qty: 30 0RF
amoxicillin-pot clavulanate 875-125 mg tablet
1 tab PO BID Qty: 20 0RF
Continued
donepezil 10 MG tablet
10 mg PO DAILY
atorvastatin 80 mg Tablet
80 mg PO QPM Qty: 30 11RF
aspirin 81 mg tablet,chewable
81 mg PO DAILY Qty: 30 11RF
pantoprazole 40 mg Tablet,Delayed Release (Dr/Ec)
40 mg PO DAILY Qty: 0 0RF
duloxetine 60 mg capsule,delayed release(DR/EC)
60 mg PO DAILY
oxycodone 10 mg tablet
10 mg PO BID
oxycodone 10 mg tablet
15 mg PO HS
buprenorphine 15 mcg/hour Patch Weekly
1 patch TRANSDERMAL Q7D
Discontinued
metoprolol tartrate 25 mg Tablet
25 mg PO BID Qty: 60 11RF
Discharge Orders:
Discharge Patient (As Directed); Ordered 04/03/25
Ordered By: Jesus Recinos
Discharge Date and Time
Print Language: AZERI
[2025-04-03 13:52] VITALS: BP 140/70
--- NOTE | 2025-04-03 14:09 | VNURNOTE ---
Home Health Liaison met with patient and spouse at bedside to discuss [facility] nurse/therapy, visits, schedule and homebound status. They are agreeable and understand that visits at home will be 2-3 x per week to assess and teach medical management.
They are aware that [facility] will contact them for start of care within a few days after discharge from . Spouse stated she was ok to do wound care until VN visits. Provided contact number for [facility].
[facility] referral completed in [facility].
== END 2025-04-03 14:02 | disposition home health service (06) | DRG 603 ==
LOC: 3 WEST ACU 15:03
PROVIDERS: Registered Nurse; ADMITTING PHYSICIAN Hospitalist; ATTENDING PHYSICIAN Hospitalist; CONSULT PHYSICIAN Orthopaedic Surgery; EMERGENCY PHYSICIAN Emergency Medicine; FAMILY PHYSICIAN Internal Medicine
DX: L03.113 Cellulitis of right upper limb (principal); F03.918 Unspecified dementia, unspecified severity, with other behavioral disturbance; Z68.1 Body mass index [BMI] 19.9 or less, adult; F03.93 Unspecified dementia, unspecified severity, with mood disturbance; F03.94 Unspecified dementia, unspecified severity, with anxiety; W55.01XA Bitten by cat, initial encounter; M79.89 Other specified soft tissue disorders; D63.8 Anemia in other chronic diseases classified elsewhere; I25.10 Atherosclerotic heart disease of native coronary artery without angina pectoris; I10 Essential (primary) hypertension; M19.90 Unspecified osteoarthritis, unspecified site; K21.9 Gastro-esophageal reflux disease without esophagitis; Z79.52 Long term (current) use of systemic steroids; M35.3 Polymyalgia rheumatica; R63.6 Underweight; S61.451A Open bite of right hand, initial encounter; Z79.82 Long term (current) use of aspirin; Z87.891 Personal history of nicotine dependence
CPT/HCPCS: 73201; 73223; 80048; 80053; 83605; 83735; 84100; 85025; 85027; 85652; 86140; 87040; 87070; 87077; 87205; 96361; 96365; 96375; 97116; 97161; 97166; 99284; A9575; Q9967